=== PATIENT | male | born 1995 | race Caucasian/White ===

== ENCOUNTER 2022-12-10 03:04 | Observation (INO) ==
--- NOTE | 2022-12-10 03:31 | DR.EXTPAIN ---
HPI Time seen Time Seen by Provider: 12/10/22 03:30 PCP Primary Care Physician: ALENA PETERS HPI Comment HPI Comment: A 27 y/o female presenting with c/o upper abdominal pain and SOB. He had lap. cholecystectomy last Wednesday (12/04/22). He went to the ED at [facility] yesterday (1600 Hrs.) for same and states that he had labs. abd. CT scan and was given IVF and analgesics. He is more dyspneic when is lays supine. He describes the abdominal pain as sharp as nails with no radiation. Complaint/Symptoms Chief Complaint:: PT AMBULATORY IN ED WITH C/O HURTING TO BREATHE. PT STATES HE HAD GALLBLADDER REMOVED ON WEDNESDAY. COVID-19 Coronavirus risk:travel/contact w/high risk person: No Has patient experienced Coronavirus symptoms: No Coronavirus symptoms experienced: Shortness of Breath Nurses notes reviewed Nurses Notes Review: Yes Source History Provided: Patient Mode of arrival Mode of Arrival: Ambulatory Timing Onset of Chief Complaint: 12/10/22 Context History of: None Associated signs and symptoms Associated Signs and Symptoms: Shortness of Breath PMH PMH Past Medical History: Yes Past Medical History: Asthma Past Surgical History: Yes Surgical History: Appendectomy and Cholecystectomy Past Surgical History Comment: LEFT FOOT Family History History of Family Medical Conditions: Yes Family Medical History: Diabetes Mellitus, CO, Coronary Artery Disease, Heart Failure, Sudden Cardiac and Hypertension Social History Does patient currently use any type of tobacco product: Yes Have you used tobacco products in the last 12 months: Yes Type of Tobacco Use: Cigarettes Does any household member use tobacco: No Alcohol Use: Occasionally Do you use any recreational Drugs:: No Lives With: Family Lives Where: Home Travel Risk Coronavirus risk:travel/contact w/high risk person: No Has patient experienced Coronavirus symptoms: No Infectious screening In the last 2 months have you had wt loss of >10#?: NO Have you had fever, night sweats or hemotysis?: No Have you traveled outside the country in the last 6 months?: No Isolation: Standard ROS Review of Systems Constitutional: No Symptoms Reported Eyes: No Symptoms Reported ENTM: No Symptoms Reported Respiratoy: Short of Breath Cardiovascular: No Symptoms Reported Gastrointestinal/Abdominal: Abdominal Pain Genitourinary: No Symptoms Reported Neurological: No Symptoms Reported Musculoskeletal: No Symptoms Reported Integumentary: No Symptoms Reported Hematologic/Lymphatic: No Symptoms Reported Endocrine: No Symptoms Reported Psychiatric: No Symptoms Reported All Other Systems: Reviewed and Negative PE Vital Signs Vitals: Temperature 98.2 F Pulse Rate 90 Respiratory Rate 20 Blood Pressure [Left Arm] 116/63 Blood Pressure 124/88 O2 Sat by Pulse Oximetry 98 General Limitations: No Limitations General Appearance: Alert and In No Apparent Distress Head Head Exam: Normal Inspection, Atraumatic and Normocephalic Eyes Eye exam: Normal Appearance and EOMI ENT ENT Exam: Normal Exam, Normal Oropharynx and Normal External Ear Exam Neck Neck Exam: Normal Inspection, Full ROM and Trachea Midline Chest Chest Inspection: Normal Inspection and Symmetric Chest Wall Rise Respiratory Respiratory Exam: Normal Lung Sounds Bilat Cardiovascular Cardiovascular Exam: Regular Rate, Normal Rhythm, Normal Heart Sounds, +S1 and +S2 Abdominal Exam Abdominal Exam: Normal Inspection, Normal Bowel Sounds, Soft and Tenderness Abdominal Tenderness: Epigastrium Extremities Extremities Exam: Normal Inspection and Full ROM Back Back Exam: Normal Inspection and Full ROM Neurological Neurological Exam: Alert, Oriented X3 and CN II-XII Intact Psychiatric Psychiatric Exam: Normal Affect and Normal Mood Skin Skin Exam: Dry, Intact and Normal Color COURSE Treatment Treatment: The visit records of his visit to [facility] yesterday were ontained and reviewed. He has had a CT Scan of the abdome/pelvis which showed no pathology. He had a Chest CTA which was negative for P.E. He had a leukocytosis at 12, otherwise the labs. were okay. On his CBC here early this morning, his WBC had gone up from 12 yesterday to 19.1. I spoke with his surgeon, Dr. Diego. The recommendation is to place the pt. in-house in OBS. status. I informed the pt. ot the plan and the reason for this. Admit orders were written. Reevaluation 1st: Improved Education/Counseling Education/Counseling: Patient, Family, Education and Counseling Educated On: Treatment, Diagnosis and Needs for Follow Up ROR Labs Reviewed Result Diagrams: 12/10/22 03:50 12/10/22 03:50 Laboratory: WBC 19.1 X10^3/uL (3.6-10.0) H 12/10/22 03:50 RBC 5.38 X10^6/uL (4.7-6.0) 12/10/22 03:50 Hgb 16.0 g/dL (13.5-18.0) 12/10/22 03:50 Hct 45.9 % (42.0-54.0) 12/10/22 03:50 MCV 85.3 fL (80.0-100.0) 12/10/22 03:50 MCH 29.8 pg (27.0-34.0) 12/10/22 03:50 MCHC 34.9 g/dL (33.0-35.0) 12/10/22 03:50 RDW 12.8 % (11.6-16.5) 12/10/22 03:50 Plt Count 273 X10^3/uL (150.0-450.0) 12/10/22 03:50 MPV 7.8 fL (7.4-11.0) 12/10/22 03:50 Neut % (Auto) 87.7 % (42.0-75.0) H 12/10/22 03:50 Lymph % (Auto) 4.9 % (21.0-51.0) L 12/10/22 03:50 [place] % (Auto) 7.2 % (0.0-13.0) 12/10/22 03:50 Eos % (Auto) 0.1 % (0.9-2.9) L 12/10/22 03:50 Baso % (Auto) 0.1 % (0.2-1.0) L 12/10/22 03:50 Neut # (Auto) 16.7 x10^3/uL (2.2-4.8) H 12/10/22 03:50 Lymph # (Auto) 0.9 X10^3/uL (1.3-2.9) L 12/10/22 03:50 [place] # (Auto) 1.4 x10^3/uL (0.3-0.8) H 12/10/22 03:50 Eos # (Auto) 0.0 x10^3/uL (0.0-0.2) 12/10/22 03:50 Baso # (Auto) 0.0 X10^3/uL (0.0-0.1) 12/10/22 03:50 Absolute Nucleated RBC 0.0 /100WBC 12/10/22 03:50 D-Dimer 0.48 ug/ml (0.0-0.57) 12/10/22 03:50 Sodium 136 mmol/L (136-145) 12/10/22 03:50 Corrected Sodium 137 mmol/L (136-145) 12/10/22 03:50 Potassium 4.0 mmol/L (3.5-5.1) 12/10/22 03:50 Chloride 99 mmol/L (98-107) 12/10/22 03:50 Carbon Dioxide 28.5 mmol/L (21-32) 12/10/22 03:50 BUN 12 mg/dL (7-18) 12/10/22 03:50 Creatinine 0.90 mg/dL (0.70-1.30) 12/10/22 03:50 Est GFR (MDRD) Af Amer > 60 (>60) 12/10/22 03:50 Est GFR (MDRD) Non-Af > 60 (>60) 12/10/22 03:50 Glucose 145 mg/dL (65-99) H 12/10/22 03:50 Calcium 9.0 mg/dL (8.5-10.1) 12/10/22 03:50 Corrected Calcium TNP 12/10/22 03:50 Total Bilirubin 0.70 mg/dL (0.2-1.0) 12/10/22 03:50 AST 17 Units/L (15-37) 12/10/22 03:50 ALT 33 Units/L (12-78) 12/10/22 03:50 Alkaline Phosphatase 75 Units/L (46-116) 12/10/22 03:50 Total Protein 8.0 g/dL (6.4-8.2) 12/10/22 03:50 Albumin 4.1 g/dL (3.4-5.0) 12/10/22 03:50 Globulin 3.9 g/dL (2.5-4.5) 12/10/22 03:50 Albumin/Globulin Ratio 1.1 Ratio (1.1-2.1) 12/10/22 03:50 Opioid Opioid Risk Tool Age (Georgi box if 16-45): Yes History of Preadolescent Sexual Abuse: No Total: 1 Total Score Risk Category: Low Risk Copyright: Geovanni JOY predicting aberrant behaviors Discharge Plan Diagnosis Discharge Problem: Neutrophilic leukocytosis, Abdominal pain, epigastric, S/P laparoscopic cholecystectomy Discharge Plan Patient Disposition: 09 ADMITTED INPATIENT Condition: Stable Orders to Discharge Patient Discharge Orders: Transfer (Routine); Ordered 12/10/22 Ordered By: NICOLE DENNIS
[2022-12-10] MEDS ORDERED: DEMEROL INJ IVP ONE (03:46)
[2022-12-10] MEDS ORDERED: DEMEROL INJ ONE (03:55)
[2022-12-10 04:01] LABS: BASOPHILS % (AUTO) 0.1 % (0.2-1.0); EOSINOPHILS % (AUTO) 0.1 % (0.9-2.9); HEMATOCRIT 45.9 % (42.0-54.0); LYMPHOCYTES # (AUTO) 0.9 X10^3/uL (1.3-2.9); LYMPHOCYTES % (AUTO) 4.9 % (21.0-51.0); MEAN CORPUSCULAR HEMOGLOBIN 29.8 pg (27.0-34.0); MEAN CORPUSCULAR HGB CONC 34.9 g/dL (33.0-35.0); MEAN CORPUSCULAR VOLUME 85.3 fL (80.0-100.0); MEAN PLATELET VOLUME 7.8 fL (7.4-11.0); MONOCYTES # (AUTO) 1.4 x10^3/uL (0.3-0.8); MONOCYTES % (AUTO) 7.2 % (0.0-13.0); NEUTROPHILS # (AUTO) 16.7 x10^3/uL (2.2-4.8); NEUTROPHILS % (AUTO) 87.7 % (42.0-75.0); RED BLOOD COUNT 5.38 X10^6/uL (4.7-6.0); RED CELL DISTRIBUTION WIDTH 12.8 % (11.6-16.5); WHITE BLOOD COUNT 19.1 X10^3/uL (3.6-10.0)
[2022-12-10 04:15] LABS: ALANINE AMINOTRANSFERASE 33 Units/L (12-78); ALBUMIN 4.1 g/dL (3.4-5.0); ALKALINE PHOSPHATASE 75 Units/L (46-116); ASPARTATE AMINO TRANSFERASE 17 Units/L (15-37); BLOOD UREA NITROGEN 12 mg/dL (7-18); CARBON DIOXIDE 28.5 mmol/L (21-32); CHLORIDE 99 mmol/L (98-107); COR NA(FOR HYPERGLY) 137 mmol/L (136-145); SODIUM 136 mmol/L (136-145); eGFR NON BLACK RACES > 60 (>60)
--- NOTE | 2022-12-10 05:27 | RAD ---
HISTORYPT AMBULATORY IN ED WITH C/O HURTING TO BREATHE. PT STATES HE HAD GALLBLADDER REMOVED ON WEDNESDAY.STUDYCHEST, 1 [id number]/26/2023FINDINGSThe cardiomediastinal silhouette is stable. No acute airspace disease. No pneumothorax or effusion. The bony thorax appears intact.IMPRESSIONNo acute cardiopulmonary disease.Electronically signed by: MAGDI NEGRETE (Dec 10, 2022 05:26:47)
[2022-12-10] MEDS ORDERED: FLAGYL IV PREMIX 500 MG BAG 500 MG/100 ML BAG IV ONE (05:36)
[2022-12-10] MEDS ORDERED: MORPHINE SULFATE INJ 2 MG INJ IVP ONE (05:40)
[2022-12-10] MEDS ORDERED: MORPHINE SULFATE INJ 2 MG INJ ONE (05:41)
[2022-12-10 06:40] VITALS: BMI 34.6
[2022-12-10] MEDS ORDERED: DILAUDID INJ ONE (08:02)
[2022-12-10] MEDS: DILAUDID INJ IVP PRN ×3 (08:09→19:51)
[2022-12-10] MEDS: CIPRO IV 400 MG PREMIX* 400 MG/200 ML IV.SOLN. IV SCH ×2 (08:10→21:22)
[2022-12-10] MEDS ORDERED: FLAGYL IV PREMIX 500 MG BAG 500 MG/100 ML BAG IV SCH (09:00)
[2022-12-10] MEDS ORDERED: MAALOX or MYLANTA PO PRN (09:30)
[2022-12-10] MEDS ORDERED: PROTONIX INJ 40 MG VIAL ONE (09:34)
[2022-12-10] MEDS ORDERED: MYLICON TAB 80 MG CHEW PO ONE (09:34)
[2022-12-10] MEDS: ZOFRAN INJ 4 MG VIAL IVP PRN (09:40)
[2022-12-10] MEDS: MYLICON TAB 80 MG CHEW PO PRN (09:40)
[2022-12-10] MEDS: PROTONIX INJ 40 MG VIAL IVP SCH ×2 (09:41→21:29)
--- OUTSIDE RECORDS SUMMARY | 2022-12-10 14:03 | XMS ---
:1995 Author Organization [facility] er Patient Care Teams Member Role on Team Status Date MAGDI ALLEN JR attending physician Active 023 DU REINA admitting physician Active 12/10/2022 Allergies and Intolerances Code Code System Allergy Type Reaction Severity Start End Date S tatus Substance Date RXNorm Penicillins Drug Unknown Acti ve allergy (disorder) Discharge Diagnosis No data in the system Hospital Discharge Instructions No data in the system Assessment and Plan Assessments No data in the systemPlan Of Treatment No data in the systemPending Tests Test Code Code System Test Start Date URINALYSIS WITH MICRO 12/09/2022 16:39 Medications RxNorm Medication Dose Route Instructions Start Date End Date Stat us 093907 acetaminophen 325 MG / 1 tab oral orally every 6 Active hydrocodone bitartrate hours as needed. 7.5 MG Oral Tablet (NEW RX GIVEN POST-OP) 19830103 sulfamethoxazole 800 1 tab oral orally every 12 Active MG / trimethoprim 160 hours (10 days) MG Oral Tablet (NEW RX GIVEN POST-OP) Medications At Time Of Discharge RxNorm Medication Dose Route Instructions Start Date End Date Stat us 568864 acetaminophen 325 MG / 1 tab oral orally every 6 Active hydrocodone bitartrate hours as needed. 7.5 MG Oral Tablet (NEW RX GIVEN POST-OP) 19830103 sulfamethoxazole 800 1 tab oral orally every 12 Active MG / trimethoprim 160 hours (10 days) MG Oral Tablet (NEW RX GIVEN POST-OP) Problems Code Code System Problem Name Timing Information Health Co ncern Status 7748942 SNOMED-CT Arthritis (Problem) U - Start Date Active Procedures Code Code System Procedure Date Status Notes 77764960 SNOMED CT Appendectomy [address] Surgical reduction of torsion 1998 Comple michael of testis 46966137 SNOMED CT Extraction of wisdom tooth 2016 Completed OSTEOTOMY (Left) 06/03/2021 13:38 Completed Results Laboratory Results Order: AMYLASE & LIPASE Specimen Source: Body Site: [facility] Test Result Flag Range Units Date 1798-8 AMYLASE 41 25-115 U/L 12/09/2022 16:20 3040-3 LIPASE 23 16-77 U/L 12/09/2022 16:20 Order: CBC/AUTOMATED DIFF Specimen Source: Body Site: [facility] Test Result Flag Range Units Date WBC 12.1 H 3.8-10.6 K/uL 12/09/2022 16:20 789-8 RBC 5.27 4.40-5.90 M/uL 12/09/2022 16:20 HGB 15.8 13.0-18.0 g/dL 12/09/2022 16:20 HCT 45.9 40.0-52.0 % 12/09/2022 16:20 MCV 87.1 80.0-100.0 fL 16:20 MCH 30.1 26.0-34.0 pg 12/09/2022 16:20 MCHC 34.6 32.0-36.0 g/dL 12/09/2022 16:20 777-3 PLATELET COUNT 246 150-440 K/uL 12/09 16:20 788-0 RDW 12.8 11.5-15.5 % 12/09/2022 16:20 90186-8 MPV 8.1 6.8-10.0 fL 12/09/2022 16:20 770-8 NEUTROPHILS 67.6 45.0-75.0 % 12/09/19 16:20 LYMPHOCYTES 20.6 20.0-45.0 % 12/09/19 23 16:20 MONOCYTES 7.7 2.0-12.0 % 12/09/2022 16:20 EOSINOPHILS 3.6 0.0-6.0 % 12/09/19 16:20 704-7 BASOPHILS 0.5 0.0-2.0 % 12/09/2022 16:20 751-8 NEUTROPHILS, ABSOLUTE 8.2 H 1.7-6.6 K/uL 12/09/2022 16:20 LYMPHOCYTES, ABSOLUTE 2.5 1.3-3.7 K/uL 12/09/2022 16:20 MONOCYTES, ABSOLUTE 0.9 0.4-0.9 K/uL 12/09/2022 16:20 15837-3 EOSINOPHILS, ABSOLUTE 0.4 0.0-0.4 K/uL 12/09/2022 16:20 BASOPHILS, ABSOLUTE 0.1 0.0-0.2 K/uL 12/09/2022 16:20 RBC MORPHOLOGY see below 12/09 16:20 Note: INDICES INDICATE RBC SCAN NOT REQUIRED Order: CMP-COMPREHENSIVE METABOLIC PANEL 14 Specimen Source: Body Site: [facility] Test Result Flag Range Units Date 2951-2 SODIUM 141 135-145 mmol/L 12/09/2022 16:20 2823-3 POTASSIUM 3.9 3.6-5.2 mmol/L 12/09/2022 16:20 2075-0 CHLORIDE 104 97-108 mmol/L 12/09/2022 16:20 8-9 TOTAL CO2 22 21-32 mmol/L 12/09/2022 16:20 48261-9 ANION GAP 15 6-16 mmol/L 12/09/2022 16:20 2345-7 GLUCOSE 133 H 70-110 mg/dL 12/09/2022 16:20 3094-0 BUN 14 7-18 mg/dL 12/09/2022 16:20 81977-5 OSMO (CALC) 293 273-304 mOsm/kg (CALC) 06/2023 16:20 2160-0 CREATININE 0.9 0.8-1.3 mg/dL 16:20 BUN/CREA RATIO 15.6 6.0-20.0 (CALC) 12/09 16:20 2885-2 TOTAL PROTEIN 7.3 6.4-8.2 g/dL 2022 16:20 96314-9 ALBUMIN 4.2 3.4-5.0 g/dL 12/09/2022 16:20 A/G RATIO 1.4 1.0-2.6 (CALC) 12/09/2022 16:20 1975-2 TOTAL BILIRUBIN 0.3 0.0-1.0 mg/dL 06/2023 16:20 04360-2 CALCIUM 9.7 8.5-10.1 mg/dL 12/09/2022 16:20 6768-6 ALKALINE PHOS 73 50-136 U/L 2022 16:20 39270-7 AST (SGOT) 17 15-37 U/L 16:20 1743-4 ALT (SGPT) 34 30-65 U/L 3 16:20 Order: GLOMERULAR FILTRATION RATE Specimen Source: Body Site: [facility] Test Result Flag Range Units Date 57935-2 GFR, BLACK RACES >60.00 >60 06/2023 16:20 99459-3 GFR, NON-BLACK RACES >60.00 >60 12/09/2022 16:20 Note: "GFR calculated from serum creatinine value" Order: LACTIC ACID Specimen Source: Body Site: [facility] Test Result Flag Range Units Date 4-7 LACTIC ACID 0.6 0.4-2.0 mmol/L 12/09/19 23 20:25 Order: PT/ PTT Specimen Source: Body Site: [facility] Test Result Flag Range Units Date 5902-2 PROTHROMBIN TIME 13.0 H 9.5-12.5 sec 06/2023 16:20 6301-6 INR 1.11 12/09/2022 16:20 Note: Low Intensity Therap y: 1.5 - 2.0 Mod. Intensity Therapy: 2.0 - 3.0 High Intensity Therapy: 3.0 - 4.0 35882-0 PTT 36.8 20.5-43.7 sec 12/09/2022 16:20 Note: Dosage should be adj usted to maintain coagulation test range at 2 times normal. Therapeutic range = 55 - 85 seconds. Radiology Results Order: CTA CHESTExam Completion Date:12/09/2022 17:06 CT angiogram chest with contrast Indication: Chest pain and dyspnea TECHNIQUE Helical images through the chest after IV contrast. Coronal and sagittal reformats provided. MIP images provided. COMPARISON December 09, 2022 CT FINDINGS Limited images through the upper abdomen demonstrate no acute abnormality. Post cholecystectomy change noted with stranding in the right upper quadrant. Sutures are seen from recent access. Review of bone windows demonstrate no destructive osseous lesion. Chest: Chest wall soft tissues are normal. Heart size is normal. Aortic arch and branch vessels are patent. No mediastinal abnormality seen. Pulmonary artery bolus timing is adequate without central or segmental pulmonary artery filling defect although motion artifact limits sensitivity minimally. There is no pneumothorax or effusion. IMPRESSION 1. No pulmonary embolus identified, although motion artifact limits sensitivity as does bolus timing slightly. 2. No through chest process otherwise Electronically signed by: DONTA ALBA (Dec 09, 2022 19:03:45) Read By: DONTA ALBA MD Date: 12/09/2022 19:06Order: CT ABD PELVIS WOExam Completion Date:12/09/2022 16:40HISTORY Pain STUDY CT ABD PELVIS WO COMPARISON TECHNIQUE Multiple axial images of the abdomen and pelvis were obtained from the lung bases to the pubic symphysis without the administration of IV contrast. Dose reduction techniques including Automated Exposure Control (AEC) and adjustment of mA and kV were utilized. FINDINGS The lung bases are clear without effusion. The heart size is normal. Liver isnormal. The gallbladder has been removed. The pancreas, spleen, adrenal glands, and both kidneys arenormal. The stomach and small bowel loops are normal. The appendix is normal. The large bowel is normal. Bladder and prostate are normal. Are no worrisome bone marrow lesions. IMPRESSION No acute abnormality. No complication status post cholecystectomy. Electronically signed by: Melinda Keller (Dec 09, 2022 18:19:48) Read By: MELINDA KELLER MD Date: 12/09/2022 18:22 Social History Code Code System Social History Description Start Date End Date Observation [id number] [facility] Current Smoking Unknown if ever Status smoked UNK AdministrativeGender Sex Assigned At Unknown Family History Relationship: Maternal Grandfather Health Problem Age At Onset Notes Complication of anesthesia Vital Signs Code Code System Vitals Value Date 8865-8 LOINC Pulse Rate 97 {beats}/min 12/09/2022 9279-1 LOINC Respiratory Rate 22 /min 12/09/2022 25241-2 LOINC O2% BldC Oximetry 99 % 12/09/2022 8480-6 LOINC BP Systolic 132 mm[Hg] 12/09/2022 8462-4 LOINC BP Diastolic 74 mm[Hg] 12/09/2022 8310-5 LOINC Body Temperature 97 [degF] 12/09/2022 8302-2 LOINC Height 72 [in_i] 12/09/2022 38326-6 LOINC Weight 117.2 kg 12/09/2022 3140-1 LOINC Body surface area Derived from formula 2. 38 m2 12/09/2022 11880-7 LOINC BMI (Body Mass Index) 35.3 kg/m2 2022 Medical Equipment Implants Implanted Date Implant Site LISA Additional In formation 06/03/2021 AMN[employer] REPAIR 3X3 [id number] LEFT FOOT Lot or Batch Number : [id number], Serial Number : N/A, Implantable Dev ice Status : Active Functional Status No data in the system Mental Status No data in the system Plan of Treatment No data in the system Reason for Visit Reason for Visit Chest Pain*
[2022-12-10] MEDS: FLAGYL IV PREMIX 500 MG BAG 500 MG/100 ML BAG IV SCH ×2 (15:30→21:22)
[2022-12-10] MEDS ORDERED: NS 500 ML IV 500 ML IV ONE (21:02)
[2022-12-10 21:44] LABS: BILIRUBIN,URINE 1+ (NEGATIVE); BLOOD/HEMOGLOBIN,URINE 1+ (NEGATIVE); GLUCOSE, URINE NEGATIVE (NEGATIVE); KETONES,URINE 1+ (NEGATIVE); LEUKOCYTE ESTERASE ,URINE 1+ (NEGATIVE); NITRITES,URINE NEGATIVE (NEGATIVE); PROTEIN,URINE 2+ (NEGATIVE); UROBILINOGEN,URINE 2+ (NORMAL)
[2022-12-10 21:48] LABS: APPEARANCE,URINE CLEAR (CLEAR); COLOR,URINE AMBER (YELLOW)
[2022-12-10 21:49] LABS: BACTERIA,URINE NEGATIVE /HPF (NEGATIVE); HYALINE CASTS, URINE MODERATE /LPF (NEGATIVE); RBC,URINE 0-2 /HPF (0-3); SQUAMOUS EPITHELIAL CELL,UR RARE /HPF (NEGATIVE)
[2022-12-11] MEDS: FLAGYL IV PREMIX 500 MG BAG 500 MG/100 ML BAG IV SCH ×4 (02:16→20:35)
[2022-12-11 05:50] LABS: BASOPHILS # (AUTO) 0.1 X10^3/uL (0.0-0.1); BASOPHILS % (AUTO) 0.4 % (0.2-1.0); EOSINOPHILS # (AUTO) 0.1 x10^3/uL (0.0-0.2); EOSINOPHILS % (AUTO) 0.4 % (0.9-2.9); HEMATOCRIT 44.8 % (42.0-54.0); HEMOGLOBIN 15.3 g/dL (13.5-18.0); LYMPHOCYTES # (AUTO) 0.9 X10^3/uL (1.3-2.9); LYMPHOCYTES % (AUTO) 5.2 % (21.0-51.0); MEAN CORPUSCULAR HEMOGLOBIN 29.9 pg (27.0-34.0); MEAN CORPUSCULAR HGB CONC 34.1 g/dL (33.0-35.0); MEAN CORPUSCULAR VOLUME 87.5 fL (80.0-100.0); MEAN PLATELET VOLUME 7.8 fL (7.4-11.0); MONOCYTES # (AUTO) 1.7 x10^3/uL (0.3-0.8); MONOCYTES % (AUTO) 9.7 % (0.0-13.0); NEUTROPHILS # (AUTO) 14.6 x10^3/uL (2.2-4.8); NEUTROPHILS % (AUTO) 84.3 % (42.0-75.0); RED BLOOD COUNT 5.13 X10^6/uL (4.7-6.0); RED CELL DISTRIBUTION WIDTH 12.8 % (11.6-16.5); WHITE BLOOD COUNT 17.3 X10^3/uL (3.6-10.0)
[2022-12-11 05:58] LABS: BLOOD UREA NITROGEN 11 mg/dL (7-18); CARBON DIOXIDE 33.9 mmol/L (21-32); CHLORIDE 93 mmol/L (98-107); COR NA(FOR HYPERGLY) 133 mmol/L (136-145); CREATININE 0.96 mg/dL (0.70-1.30); SODIUM 132 mmol/L (136-145); eGFR NON BLACK RACES > 60 (>60)
[2022-12-11] MEDS: MYLICON TAB 80 MG CHEW PO PRN (06:10)
[2022-12-11] MEDS ORDERED: POTASSIUM CHL 60 MEQ/NS 0.45% 500 ML IV PRN (06:16)
[2022-12-11] MEDS ORDERED: K-RIDER 10 MEQ/NS 100 ML 10 MEQ/100 ML BAG IV PRN (06:16)
[2022-12-11] MEDS ORDERED: K-DUR TAB 20 MEQ PO PRN (06:16)
[2022-12-11] MEDS ORDERED: POTASSIUM CHLORIDE LIQ 20 MEQ UDC PO PRN (06:16)
[2022-12-11] MEDS ORDERED: KLOR-CON PO PRN (06:16)
[2022-12-11] MEDS ORDERED: MAGNESIUM SULFATE 1 GRAM/100 mL PREMIX 1 G/100 ML BAG IV PRN (06:16)
[2022-12-11] MEDS ORDERED: POTASSIUM CHL 40 MEQ/NS 0.45% 500 ML IV PRN (06:16)
[2022-12-11] MEDS ORDERED: MICRO K EXTEN CAP 10 MEQ PO PRN (06:16)
--- NOTE | 2022-12-11 06:26 | EKG ---
Test Reason : Chest pain Blood Pressure : */* mmHG Vent. Rate : 103 BPM Atrial Rate : 103 BPM P-R Int : 112 ms QRS Dur : 104 ms QT Int : 354 ms P-R-T Axes : 32 39 21 degrees QTc Int : 463 ms Sinus tachycardia Otherwise normal ECG No previous ECGs available Confirmed by Jalen Almonte ([id number]) on 12/11/2022 2:37:20 PM Referred By: Confirmed By: Jalen Almonte
[2022-12-11] MEDS: DILAUDID INJ IVP PRN ×4 (06:35→20:36)
[2022-12-11] MEDS ORDERED: NS 500 ML IV 500 ML IV ONE (07:35)
[2022-12-11] MEDS: MORPHINE SULFATE INJ 2 MG INJ IVP PRN (08:19)
[2022-12-11] MEDS: CIPRO IV 400 MG PREMIX* 400 MG/200 ML IV.SOLN. IV SCH ×2 (08:19→20:35)
[2022-12-11] MEDS: PROTONIX INJ 40 MG VIAL IVP SCH ×2 (08:19→20:35)
[2022-12-11] MEDS: NS 1,000 ML IV 1,000 ML IV SCH ×3 (09:09→20:34)
[2022-12-11] MEDS: ZOFRAN INJ 4 MG VIAL IVP PRN (10:15)
[2022-12-11] MEDS: TOPROL XL PO SCH (10:47)
--- NOTE | 2022-12-11 14:42 | DR.PROGNOT ---
HOSPITAL PROGRESS NOTE Progress Note for Day of: Progress Note Date: 12/11/22 Chief Complaint Chief Complaint: still having moderate to severe epigastric and RT side abdominal pain . no nausea , no vomiting . WBC is still elevated . normal LFT . afebrile . Past Medical Family Social History Allergies: Allergies ampicillin Allergy (Unknown, Verified 12/10/22 03:20) childhood allergy Reason: Drug allergy iodine Allergy (Unknown, Unverified 12/10/22 03:20) RASH Comments: Pt reports allergy to Iodine and shrimp Penicillins Allergy (Verified 12/10/22 03:20) Shrimp (Diagnostic) Allergy (Unknown, Uncoded 12/10/22 03:20) RASH Comments: Says he can eat clams and oysters/shell fish and other fish except shrimp Vital Signs Vital Signs: Temperature 98.9 F Pulse Rate [Left Radial] 120 Pulse Rate 90 Respiratory Rate 18 Blood Pressure [Left Arm] 136/85 Blood Pressure 124/88 O2 Sat by Pulse Oximetry 92 Physical Exam Respiratory: Normal GI:Auscultation: Normal GI: Tenderness: RUQ, Epigastric and Moderate Speech Pattern: Clear and Appropriate Laboratory and Diagnostics Result Diagrams: 12/11/22 05:19 12/11/22 05:19 Labs: Laboratory WBC 17.3 X10^3/uL (3.6-10.0) H 12/11/22 05:19 RBC 5.13 X10^6/uL (4.7-6.0) 12/11/22 05:19 Hgb 15.3 g/dL (13.5-18.0) 12/11/22 05:19 Hct 44.8 % (42.0-54.0) 12/11/22 05:19 MCV 87.5 fL (80.0-100.0) 12/11/22 05:19 MCH 29.9 pg (27.0-34.0) 12/11/22 05:19 MCHC 34.1 g/dL (33.0-35.0) 12/11/22 05:19 RDW 12.8 % (11.6-16.5) 12/11/22 05:19 Plt Count 245 X10^3/uL (150.0-450.0) 12/11/22 05:19 MPV 7.8 fL (7.4-11.0) 12/11/22 05:19 Neut % (Auto) 84.3 % (42.0-75.0) H 12/11/22 05:19 Lymph % (Auto) 5.2 % (21.0-51.0) L 12/11/22 05:19 [place] % (Auto) 9.7 % (0.0-13.0) 12/11/22 05:19 Eos % (Auto) 0.4 % (0.9-2.9) L 12/11/22 05:19 Baso % (Auto) 0.4 % (0.2-1.0) 12/11/22 05:19 Neut # (Auto) 14.6 x10^3/uL (2.2-4.8) H 12/11/22 05:19 Lymph # (Auto) 0.9 X10^3/uL (1.3-2.9) L 12/11/22 05:19 [place] # (Auto) 1.7 x10^3/uL (0.3-0.8) H 12/11/22 05:19 Eos # (Auto) 0.1 x10^3/uL (0.0-0.2) 12/11/22 05:19 Baso # (Auto) 0.1 X10^3/uL (0.0-0.1) 12/11/22 05:19 Absolute Nucleated RBC 0.0 /100WBC 12/11/22 05:19 D-Dimer 0.48 ug/ml (0.0-0.57) 12/10/22 03:50 Sodium 132 mmol/L (136-145) L 12/11/22 05:19 Corrected Sodium 133 mmol/L (136-145) L 12/11/22 05:19 Potassium 3.8 mmol/L (3.5-5.1) 12/11/22 05:19 Chloride 93 mmol/L (98-107) L 12/11/22 05:19 Carbon Dioxide 33.9 mmol/L (21-32) H 12/11/22 05:19 BUN 11 mg/dL (7-18) 12/11/22 05:19 Creatinine 0.96 mg/dL (0.70-1.30) 12/11/22 05:19 Est GFR (MDRD) Af Amer > 60 (>60) 12/11/22 05:19 Est GFR (MDRD) Non-Af > 60 (>60) 12/11/22 05:19 Glucose 136 mg/dL (65-99) H 12/11/22 05:19 Lactic Acid 0.9 mmol/L (0.4-2.0) 12/10/22 05:19 Calcium 9.0 mg/dL (8.5-10.1) 12/11/22 05:19 Corrected Calcium TNP 12/10/22 03:50 Magnesium 2.0 mg/dL (2.0-2.9) 12/11/22 05:19 Total Bilirubin 0.70 mg/dL (0.2-1.0) 12/10/22 03:50 AST 17 Units/L (15-37) 12/10/22 03:50 ALT 33 Units/L (12-78) 12/10/22 03:50 Alkaline Phosphatase 75 Units/L (46-116) 12/10/22 03:50 Creatine Kinase 46 Units/L (39-308) 12/11/22 05:19 Troponin I High Sens 4.2 ng/L (4.0-60.0) 12/11/22 12:08 Total Protein 8.0 g/dL (6.4-8.2) 12/10/22 03:50 Albumin 4.1 g/dL (3.4-5.0) 12/10/22 03:50 Globulin 3.9 g/dL (2.5-4.5) 12/10/22 03:50 Albumin/Globulin Ratio 1.1 Ratio (1.1-2.1) 12/10/22 03:50 Specimen Type Catherized urine 12/10/22 21:15 Urine Color Sophie (YELLOW) 12/10/22 21:15 Urine Appearance Clear (CLEAR) 12/10/22 21:15 Urine pH 5.0 (5.0 - 8.0) 12/10/22 21:15 Ur Specific [place] 1.030 (1.000-1.030) 12/10/22 21:15 Urine Protein 2+ (NEGATIVE) 12/10/22 21:15 Urine Glucose (UA) Negative (NEGATIVE) 12/10/22 21:15 Urine Ketones 1+ (NEGATIVE) 12/10/22 21:15 Urine Blood 1+ (NEGATIVE) 12/10/22 21:15 Urine Nitrite Negative (NEGATIVE) 12/10/22 21:15 Urine Bilirubin 1+ (NEGATIVE) 12/10/22 21:15 Urine Urobilinogen 2+ (NORMAL) 12/10/22 21:15 Ur Leukocyte Esterase 1+ (NEGATIVE) 12/10/22 21:15 Urine RBC 0-2 /HPF (0-3) 12/10/22 21:15 Urine WBC 0-2 /HPF (0-5) 12/10/22 21:15 Ur Squamous Epith Cells Rare /HPF (NEGATIVE) 12/10/22 21:15 Urine Bacteria Negative /HPF (NEGATIVE) 12/10/22 21:15 Hyaline Casts Moderate /LPF (NEGATIVE) 12/10/22 21:15 Urine Mucus Moderate /HPF (NEGATIVE) 12/10/22 21:15 Ur Culture Indicated? No/not indicated 12/10/22 21:15 Urine Opiates Screen Positive (NEG=<300) 12/10/22 21:15 Urine Methadone Screen Negative (NEG=<300) 12/10/22 21:15 Ur Barbiturates Screen Negative (NEG=<200) 12/10/22 21:15 Ur Phencyclidine Scrn Negative (NEG=<25) 12/10/22 21:15 Ur Amphetamines Screen Negative (NEG=<1000) 12/10/22 21:15 U Benzodiazepines Scrn Negative (NEG=<200) 12/10/22 21:15 Urine Cocaine Screen Negative (NEG=<300) 12/10/22 21:15 U Marijuana (THC) Screen Negative (NEG=<50) 12/10/22 21:15 Assessment and Plan 1: abdominal pain , recent lap yon . r/o intraabdominal infection . to have Abdominal/pelvic CT today . same IVF and antibiotics , pain control Problem Patient Problems: Patient Problems (Updated 12/10/22 @ 14:14 by Chelsey Sena) Neutrophilic leukocytosis (Acute) D72.9 Abdominal pain, epigastric (Acute) R10.13 S/P laparoscopic cholecystectomy (Acute) Z90.49
--- NOTE | 2022-12-11 14:45 | CT ---
HISTORYLEUKOCYTOSIS, ABD PAIN S/P CHOLECYSTECTOMY 12-04-22. PT C/O SEVERE RIGHT SIDE PAIN AND CHEST PAIN. PT HAD A/P CT ON 12-09-[address] [facility]. REPORT SCANNED IN.STUDYABDOMEN/PELVIS W/O CONCOMPARISONCT abdomen and pelvis 12/05/2022.TECHNIQUEMultiple axial images of the abdomen and pelvis were obtained from the lung bases to the upper thighs without the administration of IV contrast. Dose reduction techniques including Automated Exposure Control (AEC) and adjustment of mA and kV were utilized.FINDINGSLack of contrast limits evaluation.Right worse than left lower lobe pulmonary opacities may represent atelectasis or infiltrate. The heart is normal in size. Small right pleural effusion. Status post recent cholecystectomy. Mild fat stranding in the postoperative bed. There is mild fluid about the right jose liver that extends into the right pericolic gutter. See image 34 series 4, image 15 series 4 and image 22 series 9. The liver shows borderline hepatic steatosis. Normal caliber common duct. The spleen, pancreas, adrenal glands, and kidneys have a benign noncontrast appearance. Urinary bladder has mild nondependent gas image 93 series 4. There is a moderate amount fluid in the pelvis. Diverticulosis of the colon without evidence of diverticulitis. Status post appendectomy. Negative for bowel obstruction. Non-atherosclerotic normal caliber abdominal aorta. No free air. No pathologic adenopathy. Bone island measuring 6 mm in the left femoral head.IMPRESSIONStatus post recent cholecystectomy. New small amount of fluid about the right jose liver which could represent subcapsular collection. Limited evaluation without contrast. The sterility of this fluid cannot be ascertained with imaging.Right worse than left lower lobe atelectasis versus infiltrate. Small right pleural effusion.Electronically signed by: Darius Hill (Dec 11, 2022 14:43:49)
[2022-12-11] MEDS: XOPENEX 1.25 MG/3 ML NEBULE NEB SCH (21:00)
[2022-12-11] MEDS ORDERED: DUONEB 0.5 MG/3 MG (3 mL) NEB SCH (21:00)
[2022-12-11] MEDS: PULMICORT NEB TX 0.5 MG NEB SCH (21:00)
[2022-12-12] MEDS: DILAUDID INJ IVP PRN ×4 (00:37→21:12)
[2022-12-12] MEDS: NS 1,000 ML IV 1,000 ML IV SCH ×3 (00:38→16:23)
[2022-12-12] MEDS: FLAGYL IV PREMIX 500 MG BAG 500 MG/100 ML BAG IV SCH ×5 (02:50→22:28)
[2022-12-12] MEDS: MORPHINE SULFATE INJ 2 MG INJ IVP PRN ×2 (02:59→07:36)
[2022-12-12 05:41] LABS: BASOPHILS % (AUTO) 0.3 % (0.2-1.0); EOSINOPHILS # (AUTO) 0.2 x10^3/uL (0.0-0.2); EOSINOPHILS % (AUTO) 1.8 % (0.9-2.9); HEMATOCRIT 38.4 % (42.0-54.0); LYMPHOCYTES # (AUTO) 0.9 X10^3/uL (1.3-2.9); LYMPHOCYTES % (AUTO) 6.5 % (21.0-51.0); MEAN CORPUSCULAR HEMOGLOBIN 30.1 pg (27.0-34.0); MEAN CORPUSCULAR HGB CONC 34.2 g/dL (33.0-35.0); MONOCYTES # (AUTO) 1.3 x10^3/uL (0.3-0.8); MONOCYTES % (AUTO) 10.1 % (0.0-13.0); NEUTROPHILS # (AUTO) 10.8 x10^3/uL (2.2-4.8); NEUTROPHILS % (AUTO) 81.3 % (42.0-75.0); RED BLOOD COUNT 4.36 X10^6/uL (4.7-6.0); RED CELL DISTRIBUTION WIDTH 12.5 % (11.6-16.5); WHITE BLOOD COUNT 13.3 X10^3/uL (3.6-10.0)
[2022-12-12] MEDS: XOPENEX 1.25 MG/3 ML NEBULE NEB SCH ×3 (05:48→21:00)
[2022-12-12 05:49] LABS: ALANINE AMINOTRANSFERASE 22 Units/L (12-78); ALBUMIN 3.1 g/dL (3.4-5.0); ALKALINE PHOSPHATASE 76 Units/L (46-116); ASPARTATE AMINO TRANSFERASE 15 Units/L (15-37); BLOOD UREA NITROGEN 11 mg/dL (7-18); CALCIUM 8.7 mg/dL (8.5-10.1); CARBON DIOXIDE 32.9 mmol/L (21-32); CHLORIDE 94 mmol/L (98-107); COR CA(FOR HYPOALB) 9.4 mg/dL (8.5-10.1); COR NA(FOR HYPERGLY) 130 mmol/L (136-145); SODIUM 130 mmol/L (136-145); TOTAL PROTEIN 6.7 g/dL (6.4-8.2); eGFR NON BLACK RACES > 60 (>60)
[2022-12-12 06:06] LABS: HEMOGLOBIN 13.1 g/dL (13.5-18.0)
[2022-12-12] MEDS: TYLENOL 325 MG TAB PO PRN ×2 (07:35→19:40)
--- NOTE | 2022-12-12 07:36 | RAD ---
HISTORYSOBSTUDYAP chestCOMPARISONFebruary 2022FINDINGSThere is significant diaphragm elevation with low volume lungs, accentuating mild atelectasis at the right base. There is marked gaseous distension of the stomach.IMPRESSIONGastric dilatation with diaphragm elevation and mild atelectasis right lower lung. Consider nasogastric decompression.Electronically signed by: OSIEL MCDONALD (Dec 12, 2022 07:34:17)
[2022-12-12] MEDS: PROTONIX INJ 40 MG VIAL IVP SCH ×2 (08:35→21:13)
[2022-12-12] MEDS: TOPROL XL PO SCH (08:35)
[2022-12-12] MEDS: CIPRO IV 400 MG PREMIX* 400 MG/200 ML IV.SOLN. IV SCH ×2 (08:35→21:18)
[2022-12-12] MEDS: PULMICORT NEB TX 0.5 MG NEB SCH ×2 (08:40→21:00)
--- NOTE | 2022-12-12 09:32 | DR.PROGNOT ---
HOSPITAL PROGRESS NOTE Progress Note for Day of: Progress Note Date: 12/12/22 Chief Complaint Chief Complaint: still having moderate epigastric and RT side abdominal pain . no nausea , no vomiting . having difficulty voiding as well . WBC is 13,000 . normal LFT . afebrile . chest X Ray showed mild atelectasis and distended stomach . Past Medical Family Social History Past Med/Fam/Surg Hx: No changes since H&P Allergies: Allergies ampicillin Allergy (Unknown, Verified 12/10/22 03:20) childhood allergy Reason: Drug allergy iodine Allergy (Unknown, Unverified 12/10/22 03:20) RASH Comments: Pt reports allergy to Iodine and shrimp Penicillins Allergy (Verified 12/10/22 03:20) Shrimp (Diagnostic) Allergy (Unknown, Uncoded 12/10/22 03:20) RASH Comments: Says he can eat clams and oysters/shell fish and other fish except shrimp Review Of Systems ROS: No change since H&P Vital Signs Vital Signs: Temperature 99.0 F Pulse Rate [Left Radial] 104 Pulse Rate 118 Respiratory Rate 18 Blood Pressure [Left Arm] 126/71 Blood Pressure 124/88 O2 Sat by Pulse Oximetry 98 Physical Exam Respiratory: Normal GI:Auscultation: Normal GI: Tenderness: Epigastric (moderate tenderness , no rebound . BS hypo active ) and Moderate Speech Pattern: Clear and Appropriate Laboratory and Diagnostics Result Diagrams: 12/12/22 05:02 12/12/22 05:02 Labs: 12/11/22 16:58 Sputum - Expectorated Sputum - Final Laboratory WBC 13.3 X10^3/uL (3.6-10.0) H 12/12/22 05:02 RBC 4.36 X10^6/uL (4.7-6.0) L 12/12/22 05:02 Hgb 13.1 g/dL (13.5-18.0) L D 12/12/22 05:02 Hct 38.4 % (42.0-54.0) L 12/12/22 05:02 MCV 88.0 fL (80.0-100.0) 12/12/22 05:02 MCH 30.1 pg (27.0-34.0) 12/12/22 05:02 MCHC 34.2 g/dL (33.0-35.0) 12/12/22 05:02 RDW 12.5 % (11.6-16.5) 12/12/22 05:02 Plt Count 222 X10^3/uL (150.0-450.0) 12/12/22 05:02 MPV 8.0 fL (7.4-11.0) 12/12/22 05:02 Neut % (Auto) 81.3 % (42.0-75.0) H 12/12/22 05:02 Lymph % (Auto) 6.5 % (21.0-51.0) L 12/12/22 05:02 [place] % (Auto) 10.1 % (0.0-13.0) 12/12/22 05:02 Eos % (Auto) 1.8 % (0.9-2.9) 12/12/22 05:02 Baso % (Auto) 0.3 % (0.2-1.0) 12/12/22 05:02 Neut # (Auto) 10.8 x10^3/uL (2.2-4.8) H 12/12/22 05:02 Lymph # (Auto) 0.9 X10^3/uL (1.3-2.9) L 12/12/22 05:02 [place] # (Auto) 1.3 x10^3/uL (0.3-0.8) H 12/12/22 05:02 Eos # (Auto) 0.2 x10^3/uL (0.0-0.2) 12/12/22 05:02 Baso # (Auto) 0.0 X10^3/uL (0.0-0.1) 12/12/22 05:02 Absolute Nucleated RBC 0.0 /100WBC 12/12/22 05:02 D-Dimer 0.48 ug/ml (0.0-0.57) 12/10/22 03:50 Sodium 130 mmol/L (136-145) L 12/12/22 05:02 Corrected Sodium 130 mmol/L (136-145) L 12/12/22 05:02 Potassium 3.9 mmol/L (3.5-5.1) 12/12/22 05:02 Chloride 94 mmol/L (98-107) L 12/12/22 05:02 Carbon Dioxide 32.9 mmol/L (21-32) H 12/12/22 05:02 BUN 11 mg/dL (7-18) 12/12/22 05:02 Creatinine 0.90 mg/dL (0.70-1.30) 12/12/22 05:02 Est GFR (MDRD) Af Amer > 60 (>60) 12/12/22 05:02 Est GFR (MDRD) Non-Af > 60 (>60) 12/12/22 05:02 Glucose 120 mg/dL (65-99) H 12/12/22 05:02 Lactic Acid 0.9 mmol/L (0.4-2.0) 12/10/22 05:19 Calcium 8.7 mg/dL (8.5-10.1) 12/12/22 05:02 Corrected Calcium 9.4 mg/dL (8.5-10.1) 12/12/22 05:02 Magnesium 2.0 mg/dL (2.0-2.9) 12/11/22 05:19 Total Bilirubin 1.60 mg/dL (0.2-1.0) H 12/12/22 05:02 AST 15 Units/L (15-37) 12/12/22 05:02 ALT 22 Units/L (12-78) 12/12/22 05:02 Alkaline Phosphatase 76 Units/L (46-116) 12/12/22 05:02 Creatine Kinase 46 Units/L (39-308) 12/11/22 05:19 Troponin I High Sens 6.9 ng/L (4.0-60.0) 12/11/22 18:15 Total Protein 6.7 g/dL (6.4-8.2) 12/12/22 05:02 Albumin 3.1 g/dL (3.4-5.0) L 12/12/22 05:02 Globulin 3.6 g/dL (2.5-4.5) 12/12/22 05:02 Albumin/Globulin Ratio 0.9 Ratio (1.1-2.1) L 12/12/22 05:02 Specimen Type Catherized urine 12/10/22 21:15 Urine Color Sophie (YELLOW) 12/10/22 21:15 Urine Appearance Clear (CLEAR) 12/10/22 21:15 Urine pH 5.0 (5.0 - 8.0) 12/10/22 21:15 Ur Specific [place] 1.030 (1.000-1.030) 12/10/22 21:15 Urine Protein 2+ (NEGATIVE) 12/10/22 21:15 Urine Glucose (UA) Negative (NEGATIVE) 12/10/22 21:15 Urine Ketones 1+ (NEGATIVE) 12/10/22 21:15 Urine Blood 1+ (NEGATIVE) 12/10/22 21:15 Urine Nitrite Negative (NEGATIVE) 12/10/22 21:15 Urine Bilirubin 1+ (NEGATIVE) 12/10/22 21:15 Urine Urobilinogen 2+ (NORMAL) 12/10/22 21:15 Ur Leukocyte Esterase 1+ (NEGATIVE) 12/10/22 21:15 Urine RBC 0-2 /HPF (0-3) 12/10/22 21:15 Urine WBC 0-2 /HPF (0-5) 12/10/22 21:15 Ur Squamous Epith Cells Rare /HPF (NEGATIVE) 12/10/22 21:15 Urine Bacteria Negative /HPF (NEGATIVE) 12/10/22 21:15 Hyaline Casts Moderate /LPF (NEGATIVE) 12/10/22 21:15 Urine Mucus Moderate /HPF (NEGATIVE) 12/10/22 21:15 Ur Culture Indicated? No/not indicated 12/10/22 21:15 Urine Opiates Screen Positive (NEG=<300) 12/10/22 21:15 Urine Methadone Screen Negative (NEG=<300) 12/10/22 21:15 Ur Barbiturates Screen Negative (NEG=<200) 12/10/22 21:15 Ur Phencyclidine Scrn Negative (NEG=<25) 12/10/22 21:15 Ur Amphetamines Screen Negative (NEG=<1000) 12/10/22 21:15 U Benzodiazepines Scrn Negative (NEG=<200) 12/10/22 21:15 Urine Cocaine Screen Negative (NEG=<300) 12/10/22 21:15 U Marijuana (THC) Screen Negative (NEG=<50) 12/10/22 21:15 Assessment and Plan 1: abdominal pain , recent lap yon . r/o intraabdominal infection . mild lung Atelectasis . gastric distention and ileus. urine retention . same IVF , Antibiotics . ambulate , incentive spirometer Problem Patient Problems: Patient Problems (Updated 12/10/22 @ 14:14 by Chelsey Sena) Neutrophilic leukocytosis (Acute) D72.9 Abdominal pain, epigastric (Acute) R10.13 S/P laparoscopic cholecystectomy (Acute) Z90.49
[2022-12-12] MEDS: REGLAN INJ 10 MG VIAL IVP SCH ×3 (10:39→21:13)
--- NOTE | 2022-12-12 18:06 | PCM.PROG ---
Progress Note - Progress Note for Day of Date of Exam: 12/11/22 - Subjective Subjective: IS A 27 YEAR OLD WHITE MALE WHO WAS ADMITTED BY OBSERVATION STATUS. WE WERE CONSULTED FOR MEDICAL MANAGEMENT DUE TO ELEVATED HEARTRATE. HE IS 6 DAYS STATUS POST LAPROSCOPIC CHOLECYSTECTOMY. HE PRESENTED TO THE ER LAST NIGHT WITH COMPLAINTS OF PERSISTENT ABDOMINAL PAIN, RIGHT SHOULDER PAIN, NAUSEA, AND VOMITING. PAIN WAS LOCATED IN THE EPIGASTRIC REGION AND IN THE RIGHT UPPER QUADRANT. HE HAD A NON-CONTRAST CT AT ANOTHER FACILITY YESTERDAY. CT WAS NEGATIVE. UPON PRESENTATION TO THIS ER, HIS VITALS WERE: 99.4-145-20-92%-131/83. LABS WERE OBTAINED. WBC 19.1, RBC 5.38, HGB 16.0, HCT 45.9, PLT COUNT 273, SODIUM 136, POTASSIUM 4.0, CHLORIDE 99, BUN 12, CREATININE 0.90, GLUCOSE 145, CALCIUM 9.0, TOTAL BILI 0.70, AST 17, ALT 33, ALK PHOS 75, TOTAL PROTEIN 8.0, ALBUMIN 4.1, D-DIMER 0.48. A URINALYSIS WAS OBTAINED AND WAS UNREMARKABLE. TOXICOLOGY WAS ONLY POSITIVE FOR OPIATES, WHICH HE WAS PRESCRIBED AFTER HIS CHOLECYSTECTOMY. BLOOD AND SPUTUM CULTURES WERE SET UP. A CHEST XRAY WAS OBTAINED AND REVEALED: No acute cardiopulmonary disease. PATIENT REPORTS NOT BEING ABLE TO VOID IN OVER 12 HOURS. A TEMPLE CATHETER WAS PLACED IN THE ER. APPROXIMATELY 600ML COLLECTED UPON INSERTION OF CATHETER. CATHETER WAS LATER REMOVED DUE TO PATIENT REQUEST. IN THE ER, SHE WAS GIVEN DEMEROL 25MG IV X 1, MORPHINE 2MG IV X 1, FLAGYL 500MG IV X 1. HE WAS ADMITTED TO THE HOSPTIAL FOR FURTHER EVALUATION AND TREAMTENT OF LEUKOCYTOSIS, UPPER ABDOMINAL PAIN, S/P LAP MADELAINE. HE WAS STARTED ON NORMAL SALINE AT 125 ML/JR, CIPRO 400MG IV Q12H, FLAGYL 500MG IV Q6H, DILAUDID 2MG IV Q3H PRN, MYLICON 160MG TID PRN, MAALOX 30ML PO Q4H PRN, REGLAN 10MG IV TID, PROTONIX 40MG IV BID, ZOFRAN 4MG IV Q4H PRN, XOPENEX NEBS TID, PULMICORTN NEBS BID, MAALOX 30ML Q4H PRN, TYLENOL 650MG PO Q6H PRN, THE POTASSIUM AND MAGNESIUM PROTOCOLS, AND TOPROL 25MG PO DAILY. WE WILL OBTAIN AN ABDOMEN/PELVIS CT WITH ORAL CONTRAST. OTHERWISE, WE WILL FOLLOW-UP WITH AM LABS AND CONTINUE TO MONITOR. TIME SPENT ON CLINICAL ASSESSMENT, REVIEWING LABS AND IMAGING, DECISION MAKING, AND DOCUMENTATION GREATER THAN 45 MINUTES. - Past Medical Family Social History Past Med/Fam/Surg Hx: No changes since H&P Allergies: Allergies ampicillin Allergy (Unknown, Verified 12/10/22 03:20) childhood allergy Reason: Drug allergy iodine Allergy (Unknown, Unverified 12/10/22 03:20) RASH Comments: Pt reports allergy to Iodine and shrimp Penicillins Allergy (Verified 12/10/22 03:20) Shrimp (Diagnostic) Allergy (Unknown, Uncoded 12/10/22 03:20) RASH Comments: Says he can eat clams and oysters/shell fish and other fish except shrimp - Review of Systems ROS: No change since H&P - Vital Signs and I&O's Vital Signs: Temperature 99.2 F Pulse Rate [Left Radial] 94 Pulse Rate 118 Respiratory Rate 20 Blood Pressure [Left Arm] 116/66 Blood Pressure 124/88 O2 Sat by Pulse Oximetry 95 Intake and Output: Intake & Output 12/10/22 12/11/22 12/12/22 12/13/22 11:59 11:59 11:59 11:59 Intake Total 80 / 80 1200 / 1200 4590 / 4590 Output Total 1050 / 1050 210 / 210 Balance 80 / 80 150 / 150 4380 / 4380 - Physical Exam Oriented: Normal Eyes: Normal Ear: Normal Nose: Normal Throat: Normal Respiratory: Normal Cardiovascular: Normal : Normal Auscultation: Bowel Sounds: Normal Palpation: Normal Tenderness: Epigastric (moderate tenderness , no rebound . BS hypo active), Moderate Skin: Normal Musculoskeletal: Normal Psychiatric: Normal Mood Description: Calm Affect: Normal Speech Pattern: Clear, Appropriate - Laboratory and Diagnostics Result Diagrams: 12/12/22 05:02 12/12/22 05:02 Labs: 12/10/22 05:19 Blood Blood Culture - Preliminary 12/10/22 05:20 Blood Blood Culture - Preliminary 12/11/22 16:58 Sputum - Expectorated Sputum Sputum Culture - Preliminary 12/11/22 16:58 Sputum - Expectorated Sputum - Final Laboratory WBC 13.3 X10^3/uL (3.6-10.0) H 12/12/22 05:02 RBC 4.36 X10^6/uL (4.7-6.0) L 12/12/22 05:02 Hgb 13.1 g/dL (13.5-18.0) L D 12/12/22 05:02 Hct 38.4 % (42.0-54.0) L 12/12/22 05:02 MCV 88.0 fL (80.0-100.0) 12/12/22 05:02 MCH 30.1 pg (27.0-34.0) 12/12/22 05:02 MCHC 34.2 g/dL (33.0-35.0) 12/12/22 05:02 RDW 12.5 % (11.6-16.5) 12/12/22 05:02 Plt Count 222 X10^3/uL (150.0-450.0) 12/12/22 05:02 MPV 8.0 fL (7.4-11.0) 12/12/22 05:02 Neut % (Auto) 81.3 % (42.0-75.0) H 12/12/22 05:02 Lymph % (Auto) 6.5 % (21.0-51.0) L 12/12/22 05:02 [place] % (Auto) 10.1 % (0.0-13.0) 12/12/22 05:02 Eos % (Auto) 1.8 % (0.9-2.9) 12/12/22 05:02 Baso % (Auto) 0.3 % (0.2-1.0) 12/12/22 05:02 Neut # (Auto) 10.8 x10^3/uL (2.2-4.8) H 12/12/22 05:02 Lymph # (Auto) 0.9 X10^3/uL (1.3-2.9) L 12/12/22 05:02 [place] # (Auto) 1.3 x10^3/uL (0.3-0.8) H 12/12/22 05:02 Eos # (Auto) 0.2 x10^3/uL (0.0-0.2) 12/12/22 05:02 Baso # (Auto) 0.0 X10^3/uL (0.0-0.1) 12/12/22 05:02 Absolute Nucleated RBC 0.0 /100WBC 12/12/22 05:02 D-Dimer 0.48 ug/ml (0.0-0.57) 12/10/22 03:50 Sodium 130 mmol/L (136-145) L 12/12/22 05:02 Corrected Sodium 130 mmol/L (136-145) L 12/12/22 05:02 Potassium 3.9 mmol/L (3.5-5.1) 12/12/22 05:02 Chloride 94 mmol/L (98-107) L 12/12/22 05:02 Carbon Dioxide 32.9 mmol/L (21-32) H 12/12/22 05:02 BUN 11 mg/dL (7-18) 12/12/22 05:02 Creatinine 0.90 mg/dL (0.70-1.30) 12/12/22 05:02 Est GFR (MDRD) Af Amer > 60 (>60) 12/12/22 05:02 Est GFR (MDRD) Non-Af > 60 (>60) 12/12/22 05:02 Glucose 120 mg/dL (65-99) H 12/12/22 05:02 Lactic Acid 0.9 mmol/L (0.4-2.0) 12/10/22 05:19 Calcium 8.7 mg/dL (8.5-10.1) 12/12/22 05:02 Corrected Calcium 9.4 mg/dL (8.5-10.1) 12/12/22 05:02 Magnesium 2.0 mg/dL (2.0-2.9) 12/11/22 05:19 Total Bilirubin 1.60 mg/dL (0.2-1.0) H 12/12/22 05:02 AST 15 Units/L (15-37) 12/12/22 05:02 ALT 22 Units/L (12-78) 12/12/22 05:02 Alkaline Phosphatase 76 Units/L (46-116) 12/12/22 05:02 Creatine Kinase 46 Units/L (39-308) 12/11/22 05:19 Troponin I High Sens 6.9 ng/L (4.0-60.0) 12/11/22 18:15 Total Protein 6.7 g/dL (6.4-8.2) 12/12/22 05:02 Albumin 3.1 g/dL (3.4-5.0) L 12/12/22 05:02 Globulin 3.6 g/dL (2.5-4.5) 12/12/22 05:02 Albumin/Globulin Ratio 0.9 Ratio (1.1-2.1) L 12/12/22 05:02 Specimen Type Catherized urine 12/10/22 21:15 Urine Color [place] (YELLOW) 12/10/22 21:15 Urine Appearance Clear (CLEAR) 12/10/22 21:15 Urine pH 5.0 (5.0 - 8.0) 12/10/22 21:15 Ur Specific [place] 1.030 (1.000-1.030) 12/10/22 21:15 Urine Protein 2+ (NEGATIVE) 12/10/22 21:15 Urine Glucose (UA) Negative (NEGATIVE) 12/10/22 21:15 Urine Ketones 1+ (NEGATIVE) 12/10/22 21:15 Urine Blood 1+ (NEGATIVE) 12/10/22 21:15 Urine Nitrite Negative (NEGATIVE) 12/10/22 21:15 Urine Bilirubin 1+ (NEGATIVE) 12/10/22 21:15 Urine Urobilinogen 2+ (NORMAL) 12/10/22 21:15 Ur Leukocyte Esterase 1+ (NEGATIVE) 12/10/22 21:15 Urine RBC 0-2 /HPF (0-3) 12/10/22 21:15 Urine WBC 0-2 /HPF (0-5) 12/10/22 21:15 Ur Squamous Epith Cells Rare /HPF (NEGATIVE) 12/10/22 21:15 Urine Bacteria Negative /HPF (NEGATIVE) 12/10/22 21:15 Hyaline Casts Moderate /LPF (NEGATIVE) 12/10/22 21:15 Urine Mucus Moderate /HPF (NEGATIVE) 12/10/22 21:15 Ur Culture Indicated? No/not indicated 12/10/22 21:15 Urine Opiates Screen Positive (NEG=<300) 12/10/22 21:15 Urine Methadone Screen Negative (NEG=<300) 12/10/22 21:15 Ur Barbiturates Screen Negative (NEG=<200) 12/10/22 21:15 Ur Phencyclidine Scrn Negative (NEG=<25) 12/10/22 21:15 Ur Amphetamines Screen Negative (NEG=<1000) 12/10/22 21:15 U Benzodiazepines Scrn Negative (NEG=<200) 12/10/22 21:15 Urine Cocaine Screen Negative (NEG=<300) 12/10/22 21:15 U Marijuana (THC) Screen Negative (NEG=<50) 12/10/22 21:15 - Plan (1) Abdominal pain, epigastric Status: Acute Plan: OBTAIN ABDOMEN/PELVIS CT WITH ORAL CONTRAST, NORMAL SALINE AT 125 ML/JR, CIPRO 400MG IV Q12H, FLAGYL 500MG IV Q6H, DILAUDID 2MG IV Q3H PRN, MYLICON 160MG TID PRN, MAALOX 30ML PO Q4H PRN, REGLAN 10MG IV TID, PROTONIX 40MG IV BID, ZOFRAN 4MG IV Q4H PRN, XOPENEX NEBS TID, PULMICORTN NEBS BID, MAALOX 30ML Q4H PRN, TYLENOL 650MG PO Q6H PRN, THE POTASSIUM AND MAGNESIUM PROTOCOLS, AND TOPROL 25MG PO DAILY. (2) Nausea and vomiting Status: Acute Qualifiers: Vomiting type: unspecified Qualified Code(s): R11.2 - Nausea with vomiting, unspecified (3) S/P laparoscopic cholecystectomy Status: Acute
--- NOTE | 2022-12-12 18:23 | PCM.PROG ---
Progress Note - Progress Note for Day of Date of Exam: 12/12/22 - Subjective Subjective: IS CURRENTLY OBSERVATION STATUS FOR TREATMENT OF TREATMENT OF LEUKOCYTOSIS, UPPER ABDOMINAL PAIN, TACHYCARDIA, S/P LAP MADELAINE. HE IS 5 DAYS STATUS POST LAPROSCOPIC CHOLECYSTECTOMY. TODAY, HE IS ALERT AND ORIENTED, LYING IN BED ON MORNING ROUNDS. HE CONTINUES WITH COMPLAINTS OF EPIGASTRIC AND RIGHT UPPER QUADRANT PAIN TODAY. HE DENIES SIGNIFICANT IMPROVEMENT SINCE ADMISSION. ADDITIONALLY, HE COMPLAINS OF INTERMITTENT SHORTNESS OF BREATH TODAY. ON EXAMINATION, HEART IS REGULAR IN RATE AND RHYTHM. BILATERAL LUNGS ARE NOTED WITH DIMINISHED LUNG SOUNDS THROUGHOUT. ABDOMEN IS ROUND, SOFT, AND NOTED WITH TENDERNESS TO THE RUQ AND THE EPIGASTRIC REGION. HYPERACTIVE BOWEL SOUNDS ARE NO DEVENDRA IN ALL QUADRANTS. HIS VITALS THIS MORNING WERE: 99.0-100-18-98%-126/71. LABS WERE OBTAINED. WBC 13.3, RBC 4.36, HGB 13.1, HCT 38.4, PLT COUNT 222, SODIUM 130, POTASSIUM 3.9, CHLORIDE 94, CARBON DIOXIDE 32.9, BUN 11, CREATININE 0.90, GLUCOSE 120, CALCIUM 8.7, TOTAL BILI 1.60, AST 15, ALT 22, ALK PHOS 76, TOTAL PROTEIN 6.7, ALBUMIN 3.1. BLOOD AND SPUTUM CULTURES ARE PENDING. AN ABDOMEN/PELVIS CT WITH ORAL CONTRAST WAS OBTAINED AND REVEALED: Status post recent cholecystectomy. New small amount of fluid about the right jose liver which could represent subcapsular collection. Limited evaluation without contrast. The sterility of this fluid cannot be ascertained with imaging. Right worse than left lower lobe atelectasis versus infiltrate. Small right pleural effusion. A CHEST XRAY WAS OBTAINED TODAY AND REVEALED: Gastric dilatation with diaphragm elevation and mild atelectasis right lower lung. Consider nasogastric decompression. HE IS CURRENTLY RECEIVING NORMAL SALINE AT 125 ML/JR, CIPRO 400MG IV Q12H, FLAGYL 500MG IV Q6H, DILAUDID 2MG IV Q3H PRN, MYLICON 160MG TID PRN, MAALOX 30ML PO Q4H PRN, REGLAN 10MG IV TID, PROTONIX 40MG IV BID, ZOFRAN 4MG IV Q4H PRN, XOPENEX NEBS TID, PULMICORTN NEBS BID, MAALOX 30ML Q4H PRN, TYLENOL 650MG PO Q6H PRN, THE POTASSIUM AND MAGNESIUM PROTOCOLS, AND TOPROL 25MG PO DAILY. WE WILL DISCUSS XRAY FINDINGS WITH . OTHERWISE, WE WILL FOLLOW-UP WITH AM LABS AND CONTINUE TO MONITOR. TIME SPENT ON CLINICAL ASSESSMENT, REVIEWING LABS AND IMAGING, DECISION MAKING, AND DOCUMENTATION GREATER THAN 45 MINUTES. - Past Medical Family Social History Past Med/Fam/Surg Hx: No changes since H&P Allergies: Allergies ampicillin Allergy (Unknown, Verified 12/10/22 03:20) childhood allergy Reason: Drug allergy iodine Allergy (Unknown, Unverified 12/10/22 03:20) RASH Comments: Pt reports allergy to Iodine and shrimp Penicillins Allergy (Verified 12/10/22 03:20) Shrimp (Diagnostic) Allergy (Unknown, Uncoded 12/10/22 03:20) RASH Comments: Says he can eat clams and oysters/shell fish and other fish except shrimp - Review of Systems ROS: No change since H&P - Vital Signs and I&O's Vital Signs: Temperature 99.2 F Pulse Rate [Left Radial] 94 Pulse Rate 118 Respiratory Rate 20 Blood Pressure [Left Arm] 116/66 Blood Pressure 124/88 O2 Sat by Pulse Oximetry 95 Intake and Output: Intake & Output 12/10/22 12/11/22 12/12/22 12/13/22 11:59 11:59 11:59 11:59 Intake Total 80 / 80 1200 / 1200 4590 / 4590 Output Total 1050 / 1050 210 / 210 Balance 80 / 80 150 / 150 4380 / 4380 - Physical Exam Oriented: Normal Eyes: Normal Ear: Normal Nose: Normal Throat: Normal Respiratory: Normal Cardiovascular: Normal : Normal Auscultation: Bowel Sounds: Normal Palpation: Normal Tenderness: Epigastric (moderate tenderness , no rebound . BS hypo active), Moderate Skin: Normal Musculoskeletal: Normal Psychiatric: Normal Mood Description: Calm Affect: Normal Speech Pattern: Clear, Appropriate - Laboratory and Diagnostics Result Diagrams: 12/12/22 05:02 12/12/22 05:02 Labs: 12/10/22 05:19 Blood Blood Culture - Preliminary 12/10/22 05:20 Blood Blood Culture - Preliminary 12/11/22 16:58 Sputum - Expectorated Sputum Sputum Culture - Preliminary 12/11/22 16:58 Sputum - Expectorated Sputum - Final Laboratory WBC 13.3 X10^3/uL (3.6-10.0) H 12/12/22 05:02 RBC 4.36 X10^6/uL (4.7-6.0) L 12/12/22 05:02 Hgb 13.1 g/dL (13.5-18.0) L D 12/12/22 05:02 Hct 38.4 % (42.0-54.0) L 12/12/22 05:02 MCV 88.0 fL (80.0-100.0) 12/12/22 05:02 MCH 30.1 pg (27.0-34.0) 12/12/22 05:02 MCHC 34.2 g/dL (33.0-35.0) 12/12/22 05:02 RDW 12.5 % (11.6-16.5) 12/12/22 05:02 Plt Count 222 X10^3/uL (150.0-450.0) 12/12/22 05:02 MPV 8.0 fL (7.4-11.0) 12/12/22 05:02 Neut % (Auto) 81.3 % (42.0-75.0) H 12/12/22 05:02 Lymph % (Auto) 6.5 % (21.0-51.0) L 12/12/22 05:02 [place] % (Auto) 10.1 % (0.0-13.0) 12/12/22 05:02 Eos % (Auto) 1.8 % (0.9-2.9) 12/12/22 05:02 Baso % (Auto) 0.3 % (0.2-1.0) 12/12/22 05:02 Neut # (Auto) 10.8 x10^3/uL (2.2-4.8) H 12/12/22 05:02 Lymph # (Auto) 0.9 X10^3/uL (1.3-2.9) L 12/12/22 05:02 [place] # (Auto) 1.3 x10^3/uL (0.3-0.8) H 12/12/22 05:02 Eos # (Auto) 0.2 x10^3/uL (0.0-0.2) 12/12/22 05:02 Baso # (Auto) 0.0 X10^3/uL (0.0-0.1) 12/12/22 05:02 Absolute Nucleated RBC 0.0 /100WBC 12/12/22 05:02 D-Dimer 0.48 ug/ml (0.0-0.57) 12/10/22 03:50 Sodium 130 mmol/L (136-145) L 12/12/22 05:02 Corrected Sodium 130 mmol/L (136-145) L 12/12/22 05:02 Potassium 3.9 mmol/L (3.5-5.1) 12/12/22 05:02 Chloride 94 mmol/L (98-107) L 12/12/22 05:02 Carbon Dioxide 32.9 mmol/L (21-32) H 12/12/22 05:02 BUN 11 mg/dL (7-18) 12/12/22 05:02 Creatinine 0.90 mg/dL (0.70-1.30) 12/12/22 05:02 Est GFR (MDRD) Af Amer > 60 (>60) 12/12/22 05:02 Est GFR (MDRD) Non-Af > 60 (>60) 12/12/22 05:02 Glucose 120 mg/dL (65-99) H 12/12/22 05:02 Lactic Acid 0.9 mmol/L (0.4-2.0) 12/10/22 05:19 Calcium 8.7 mg/dL (8.5-10.1) 12/12/22 05:02 Corrected Calcium 9.4 mg/dL (8.5-10.1) 12/12/22 05:02 Magnesium 2.0 mg/dL (2.0-2.9) 12/11/22 05:19 Total Bilirubin 1.60 mg/dL (0.2-1.0) H 12/12/22 05:02 AST 15 Units/L (15-37) 12/12/22 05:02 ALT 22 Units/L (12-78) 12/12/22 05:02 Alkaline Phosphatase 76 Units/L (46-116) 12/12/22 05:02 Creatine Kinase 46 Units/L (39-308) 12/11/22 05:19 Troponin I High Sens 6.9 ng/L (4.0-60.0) 12/11/22 18:15 Total Protein 6.7 g/dL (6.4-8.2) 12/12/22 05:02 Albumin 3.1 g/dL (3.4-5.0) L 12/12/22 05:02 Globulin 3.6 g/dL (2.5-4.5) 12/12/22 05:02 Albumin/Globulin Ratio 0.9 Ratio (1.1-2.1) L 12/12/22 05:02 Specimen Type Catherized urine 12/10/22 21:15 Urine Color Sophie (YELLOW) 12/10/22 21:15 Urine Appearance Clear (CLEAR) 12/10/22 21:15 Urine pH 5.0 (5.0 - 8.0) 12/10/22 21:15 Ur Specific [place] 1.030 (1.000-1.030) 12/10/22 21:15 Urine Protein 2+ (NEGATIVE) 12/10/22 21:15 Urine Glucose (UA) Negative (NEGATIVE) 12/10/22 21:15 Urine Ketones 1+ (NEGATIVE) 12/10/22 21:15 Urine Blood 1+ (NEGATIVE) 12/10/22 21:15 Urine Nitrite Negative (NEGATIVE) 12/10/22 21:15 Urine Bilirubin 1+ (NEGATIVE) 12/10/22 21:15 Urine Urobilinogen 2+ (NORMAL) 12/10/22 21:15 Ur Leukocyte Esterase 1+ (NEGATIVE) 12/10/22 21:15 Urine RBC 0-2 /HPF (0-3) 12/10/22 21:15 Urine WBC 0-2 /HPF (0-5) 12/10/22 21:15 Ur Squamous Epith Cells Rare /HPF (NEGATIVE) 12/10/22 21:15 Urine Bacteria Negative /HPF (NEGATIVE) 12/10/22 21:15 Hyaline Casts Moderate /LPF (NEGATIVE) 12/10/22 21:15 Urine Mucus Moderate /HPF (NEGATIVE) 12/10/22 21:15 Ur Culture Indicated? No/not indicated 12/10/22 21:15 Urine Opiates Screen Positive (NEG=<300) 12/10/22 21:15 Urine Methadone Screen Negative (NEG=<300) 12/10/22 21:15 Ur Barbiturates Screen Negative (NEG=<200) 12/10/22 21:15 Ur Phencyclidine Scrn Negative (NEG=<25) 12/10/22 21:15 Ur Amphetamines Screen Negative (NEG=<1000) 12/10/22 21:15 U Benzodiazepines Scrn Negative (NEG=<200) 12/10/22 21:15 Urine Cocaine Screen Negative (NEG=<300) 12/10/22 21:15 U Marijuana (THC) Screen Negative (NEG=<50) 12/10/22 21:15 - Plan (1) Abdominal pain, epigastric Status: Acute Plan: NORMAL SALINE AT 125 ML/JR, CIPRO 400MG IV Q12H, FLAGYL 500MG IV Q6H, DILAUDID 2MG IV Q3H PRN, MYLICON 160MG TID PRN, MAALOX 30ML PO Q4H PRN, REGLAN 10MG IV TID, PROTONIX 40MG IV BID, ZOFRAN 4MG IV Q4H PRN, XOPENEX NEBS TID, PULMICORTN NEBS BID, MAALOX 30ML Q4H PRN, TYLENOL 650MG PO Q6H PRN, THE POTASSIUM AND MAGNESIUM PROTOCOLS, AND TOPROL 25MG PO DAILY. (2) Nausea and vomiting Status: Acute Qualifiers: Vomiting type: unspecified Qualified Code(s): R11.2 - Nausea with vomiting, unspecified (3) S/P laparoscopic cholecystectomy Status: Acute (4) Pneumonia Status: Acute Qualifiers: Pneumonia type: due to unspecified organism Laterality: bilateral Lung location: lower lobe of lung Qualified Code(s): J18.9 - Pneumonia, unspecified organism
[2022-12-13] MEDS: NS 1,000 ML IV 1,000 ML IV SCH ×2 (00:24→08:46)
[2022-12-13] MEDS: DILAUDID INJ IVP PRN (01:59)
[2022-12-13] MEDS: FLAGYL IV PREMIX 500 MG BAG 500 MG/100 ML BAG IV SCH ×2 (02:01→08:46)
[2022-12-13] MEDS: MYLICON TAB 80 MG CHEW PO PRN (02:49)
[2022-12-13 05:34] LABS: BASOPHILS % (AUTO) 0.4 % (0.2-1.0); EOSINOPHILS # (AUTO) 0.3 x10^3/uL (0.0-0.2); EOSINOPHILS % (AUTO) 3.5 % (0.9-2.9); HEMATOCRIT 34.4 % (42.0-54.0); HEMOGLOBIN 11.8 g/dL (13.5-18.0); LYMPHOCYTES # (AUTO) 0.9 X10^3/uL (1.3-2.9); LYMPHOCYTES % (AUTO) 9.8 % (21.0-51.0); MEAN CORPUSCULAR HEMOGLOBIN 29.8 pg (27.0-34.0); MEAN CORPUSCULAR HGB CONC 34.4 g/dL (33.0-35.0); MEAN CORPUSCULAR VOLUME 86.9 fL (80.0-100.0); MEAN PLATELET VOLUME 7.7 fL (7.4-11.0); MONOCYTES % (AUTO) 10.9 % (0.0-13.0); NEUTROPHILS % (AUTO) 75.4 % (42.0-75.0); RED BLOOD COUNT 3.96 X10^6/uL (4.7-6.0); RED CELL DISTRIBUTION WIDTH 12.4 % (11.6-16.5); WHITE BLOOD COUNT 9.3 X10^3/uL (3.6-10.0)
[2022-12-13] MEDS: XOPENEX 1.25 MG/3 ML NEBULE NEB SCH ×2 (05:34→08:15)
[2022-12-13] MEDS: REGLAN INJ 10 MG VIAL IVP SCH (05:38)
[2022-12-13 05:46] LABS: ALANINE AMINOTRANSFERASE 17 Units/L (12-78); ALBUMIN 2.7 g/dL (3.4-5.0); ALKALINE PHOSPHATASE 70 Units/L (46-116); ASPARTATE AMINO TRANSFERASE 16 Units/L (15-37); BLOOD UREA NITROGEN 8 mg/dL (7-18); CALCIUM 8.4 mg/dL (8.5-10.1); CARBON DIOXIDE 30.6 mmol/L (21-32); CHLORIDE 97 mmol/L (98-107); COR CA(FOR HYPOALB) 9.4 mg/dL (8.5-10.1); CREATININE 0.76 mg/dL (0.70-1.30); SODIUM 134 mmol/L (136-145); TOTAL PROTEIN 5.9 g/dL (6.4-8.2); eGFR NON BLACK RACES > 60 (>60)
[2022-12-13] MEDS: MORPHINE SULFATE INJ 2 MG INJ IVP PRN (06:10)
--- NOTE | 2022-12-13 07:47 | RAD ---
HISTORYSOBSTUDYAP chestCOMPARISONFebruary 2022FINDINGSHeart size similar and within normal limits. Interval improvement in previous gastric distention. Persistent mild right basal atelectasis accentuated by elevated diaphragm.IMPRESSIONNo change in appearance of heart or lungs. Improved gastric distention.Electronically signed by: OSIEL MCDONALD (Dec 13, 2022 07:46:18)
[2022-12-13] MEDS: PULMICORT NEB TX 0.5 MG NEB SCH (08:10)
[2022-12-13 08:22] VITALS: BP 129/74
[2022-12-13] MEDS: PROTONIX INJ 40 MG VIAL IVP SCH (08:45)
[2022-12-13] MEDS: TOPROL XL PO SCH (08:45)
[2022-12-13] MEDS: CIPRO IV 400 MG PREMIX* 400 MG/200 ML IV.SOLN. IV SCH (08:46)
== END 2022-12-13 10:16 | disposition home or self-care (01) ==
LOC: ER 03:07 → MED/SURG 03:07
PROVIDERS: ADMIT Surgery; ATTEND Surgery
DX: Z90.49 Acquired absence of other specified parts of digestive tract; R11.2 Nausea with vomiting, unspecified; J90 Pleural effusion, not elsewhere classified; R06.02 Shortness of breath; R00.1 Bradycardia, unspecified; K56.7 Ileus, unspecified; R07.89 Other chest pain; R10.84 Generalized abdominal pain; R10.13 Epigastric pain

== ENCOUNTER 2022-12-18 12:12 | Observation (INO) ==
[2022-12-18] MEDS ORDERED: NS 1,000 ML IV 1,000 ML ONE (12:37)
[2022-12-18] MEDS ORDERED: NS 1,000 ML IV 1,000 ML IV ONE (12:47)
[2022-12-18 13:08] LABS: BASOPHILS # (AUTO) 0.1 X10^3/uL (0.0-0.1); BASOPHILS % (AUTO) 0.7 % (0.2-1.0); EOSINOPHILS # (AUTO) 0.6 x10^3/uL (0.0-0.2); EOSINOPHILS % (AUTO) 4.3 % (0.9-2.9); HEMATOCRIT 42.8 % (42.0-54.0); HEMOGLOBIN 14.9 g/dL (13.5-18.0); LYMPHOCYTES # (AUTO) 1.3 X10^3/uL (1.3-2.9); LYMPHOCYTES % (AUTO) 9.7 % (21.0-51.0); MEAN CORPUSCULAR HEMOGLOBIN 29.7 pg (27.0-34.0); MEAN CORPUSCULAR HGB CONC 34.9 g/dL (33.0-35.0); MEAN CORPUSCULAR VOLUME 85.2 fL (80.0-100.0); MONOCYTES # (AUTO) 1.3 x10^3/uL (0.3-0.8); MONOCYTES % (AUTO) 9.4 % (0.0-13.0); NEUTROPHILS # (AUTO) 10.2 x10^3/uL (2.2-4.8); NEUTROPHILS % (AUTO) 75.9 % (42.0-75.0); RED BLOOD COUNT 5.02 X10^6/uL (4.7-6.0); RED CELL DISTRIBUTION WIDTH 12.3 % (11.6-16.5); WHITE BLOOD COUNT 13.4 X10^3/uL (3.6-10.0)
[2022-12-18 13:22] LABS: ALANINE AMINOTRANSFERASE 37 Units/L (12-78); ALBUMIN 2.9 g/dL (3.4-5.0); ALKALINE PHOSPHATASE 268 Units/L (46-116); AMYLASE 54 Units/L (25-115); ASPARTATE AMINO TRANSFERASE 23 Units/L (15-37); BLOOD UREA NITROGEN 11 mg/dL (7-18); CALCIUM 9.5 mg/dL (8.5-10.1); CARBON DIOXIDE 29.7 mmol/L (21-32); CHLORIDE 96 mmol/L (98-107); COR CA(FOR HYPOALB) 10.4 mg/dL (8.5-10.1); CREATININE 0.74 mg/dL (0.70-1.30); LIPASE 149 Units/L (73-393); SODIUM 139 mmol/L (136-145); TOTAL PROTEIN 7.5 g/dL (6.4-8.2); eGFR NON BLACK RACES > 60 (>60)
[2022-12-18 13:24] LABS: LACTIC ACID 0.7 mmol/L (0.4-2.0)
--- NOTE | 2022-12-18 13:39 | DR.ABDMALE ---
HPI Time seen Time Seen by Provider: 12/18/22 13:38 PCP Primary Care Physician: FRAN Complaint Chief Complaint Doctors Comments: PATIENT HAD GALL BLADDER REMOVED 2 WEEKS AGO AND HAS HAD NAUSEA EVERYSINCE. DR CMGRAW WANTED HIM TO BE EVALUATED INER. Chief Complaint:: PATIENT C/O ABD PAIN. PATIENT STATES HE HAD SURGERY X2 WEEKS A GO. PATIENT HAS SINCE BEEN ADMITTED X 1 WEEK AGO. PATIENT STATES HE IS UNABLE TO EAT ANYTHING. PATIENT STATES HE BEGINS TO HAVE SEVERE ABD PAIN WHEN ANYTHING IS TAKEN IN OTHER THAN WATER. COVID-19 Coronavirus risk:travel/contact w/high risk person: No Has patient experienced Coronavirus symptoms: No Mode of arrival Mode of Arrival: Ambulatory Timing Onset of Chief Complaint: 12/11/22 PMH PMH Past Medical History: Yes Past Medical History: Asthma Past Surgical History: Yes Surgical History: Appendectomy, Cholecystectomy and Ortho Surgery Past Surgical History Comment: FOOT SURGERY, TESTICLE TORTION SURGERY Family History History of Family Medical Conditions: Yes Family Medical History: Diabetes Mellitus, [place], Coronary Artery Disease and Hypertension Social History Does patient currently use any type of tobacco product: Yes Have you used tobacco products in the last 12 months: Yes Type of Tobacco Use: Cigarettes Does any household member use tobacco: No Alcohol Use: None Do you use any recreational Drugs:: No Lives With: Family Lives Where: Home Travel Risk Coronavirus risk:travel/contact w/high risk person: No Has patient experienced Coronavirus symptoms: No Infectious screening In the last 2 months have you had wt loss of >10#?: NO Have you had fever, night sweats or hemotysis?: No Have you traveled outside the country in the last 6 months?: No Isolation: Standard ROS Review of Systems Constitutional: Malaise and Other (CHRONIC NAUSEA) Eyes: No Symptoms Reported ENTM: No Symptoms Reported Respiratoy: No Symptoms Reported Cardiovascular: No Symptoms Reported Gastrointestinal/Abdominal: Nausea Genitourinary: No Symptoms Reported Neurological: No Symptoms Reported Musculoskeletal: No Symptoms Reported Integumentary: No Symptoms Reported Hematologic/Lymphatic: No Symptoms Reported Endocrine: No Symptoms Reported Psychiatric: No Symptoms Reported PE Vital Signs Vital Signs: Temp Pulse Resp BP BP BP Pulse Ox 12/16/22 13:18 129/74 12/18/22 15:00 104 H 98 12/18/22 15:00 112/69 12/18/22 14:45 105 H 98 12/18/22 14:30 106 H 99 12/18/22 14:30 136/58 12/18/22 14:15 110 H 98 12/18/22 14:00 110 H 99 12/18/22 14:00 133/71 12/18/22 13:45 114 H 99 12/18/22 13:30 107 H 98 12/18/22 13:30 121/70 12/18/22 13:15 108 H 98 12/18/22 13:00 114 H 98 12/18/22 13:00 117/59 12/18/22 12:46 125 H 97 12/18/22 12:46 119/66 12/18/22 12:45 125 H 96 12/18/22 12:42 129 H 97 12/18/22 12:12 99.4 F 146 H 20 122/71 97 12/13/22 08:00 129/74 12/12/22 15:45 116/66 O2 Del Method FiO2 12/16/22 13:18 28 12/18/22 15:00 12/18/22 15:00 12/18/22 14:45 12/18/22 14:30 12/18/22 14:30 12/18/22 14:15 12/18/22 14:00 12/18/22 14:00 12/18/22 13:45 12/18/22 13:30 12/18/22 13:30 12/18/22 13:15 12/18/22 13:00 12/18/22 13:00 12/18/22 12:46 12/18/22 12:46 12/18/22 12:45 12/18/22 12:42 12/18/22 12:12 Room Air 12/13/22 08:00 12/12/22 15:45 General Limitations: No Limitations General Appearance: In Distress (MILD DISTRESS) and Other Head Head Exam: Normal Inspection, Atraumatic and Normocephalic Eyes Eye exam: Normal Appearance, PERRL and EOMI ENT ENT Exam: Normal Exam, Normal Oropharynx and Normal External Ear Exam Neck Neck Exam: Normal Inspection, Full ROM and Trachea Midline Chest Chest Inspection: Normal Inspection and Symmetric Chest Wall Rise Respiratory Respiratory Exam: Normal Lung Sounds Bilat Respiratory Exam: Bilateral: Clear to Auscultation Cardiovascular Cardiovascular Exam: Tachycardia Abdominal Exam Abdominal Exam: Normal Inspection, Normal Bowel Sounds and Soft Rectal Rectal Exam: Deferred Back Back Exam: Normal Inspection Extremeties Extremities Exam: Normal Inspection and Full ROM Exam: Male: Deferred Neurologic Neurological Exam: Alert, Oriented X3 and CN II-XII Intact Psychiatric Psychiatric Exam: Normal Affect and Normal Mood Skin Skin Exam: Warm, Dry and Intact MDM Differential Diagnosis Differential Diagnosis: Bowel Obstruction, Gastritus/PUD and Other (comments) (INTRACTABLE NAUSEA) COURSE Treatment Treatment: PATIENT REMAINED STABLE DURING ER VISIT. WAS GIVEN ONE LITER BOLUS OF NACL FOR TACHYCARDIA AND PULSE RATE DECREASED TO 100. HAD A POTASSIUM OF 3.2 AND HE WILL GED NACL WITH 20KCL AT 125CC/HR. CONTACT WAS MADE WITH DR MCGRAW AND HE STATED THAT THE PATIENT WILL NEED TO BE ADMITTED TO THE HOSPITAL FOR HYDRATION AND FURTHER EVALUATION OF THE INTRACTABLE NAUSEA. MIGHT NEED ERCP IN NEAR FUTURE. PATIENT HAD CT OF ABDOMEN AND PELVIS THAT SHOWED MODERATE ASCITES ,DIVERTICULOSIS AND FAT STRANDING IN THE OMENTUM AND MESENTERY IS NON SPECIFIC AND COULD REPRESENT EDEMA,PERITONITIS IS NOT EXCLUDED. ADMIT TO DR MCGRAW AND GET MEDICAL CONSULT WITH DR ADHIKARI. ROR Labs Reviewed Laboratory Results Reviewed?: Yes Result Diagrams: 12/18/22 12:43 12/18/22 12:43 Laboratory: WBC 13.4 X10^3/uL (3.6-10.0) H 12/18/22 12:43 RBC 5.02 X10^6/uL (4.7-6.0) 12/18/22 12:43 Hgb 14.9 g/dL (13.5-18.0) 12/18/22 12:43 Hct 42.8 % (42.0-54.0) 12/18/22 12:43 MCV 85.2 fL (80.0-100.0) 12/18/22 12:43 MCH 29.7 pg (27.0-34.0) 12/18/22 12:43 MCHC 34.9 g/dL (33.0-35.0) 12/18/22 12:43 RDW 12.3 % (11.6-16.5) 12/18/22 12:43 Plt Count 416 X10^3/uL (150.0-450.0) 12/18/22 12:43 MPV 7.0 fL (7.4-11.0) L 12/18/22 12:43 Neut % (Auto) 75.9 % (42.0-75.0) H 12/18/22 12:43 Lymph % (Auto) 9.7 % (21.0-51.0) L 12/18/22 12:43 [place] % (Auto) 9.4 % (0.0-13.0) 12/18/22 12:43 Eos % (Auto) 4.3 % (0.9-2.9) H 12/18/22 12:43 Baso % (Auto) 0.7 % (0.2-1.0) 12/18/22 12:43 Neut # (Auto) 10.2 x10^3/uL (2.2-4.8) H 12/18/22 12:43 Lymph # (Auto) 1.3 X10^3/uL (1.3-2.9) 12/18/22 12:43 [place] # (Auto) 1.3 x10^3/uL (0.3-0.8) H 12/18/22 12:43 Eos # (Auto) 0.6 x10^3/uL (0.0-0.2) H 12/18/22 12:43 Baso # (Auto) 0.1 X10^3/uL (0.0-0.1) 12/18/22 12:43 Absolute Nucleated RBC 0.0 /100WBC 12/18/22 12:43 Sodium 139 mmol/L (136-145) 12/18/22 12:43 Corrected Sodium TNP 12/18/22 12:43 Potassium 3.2 mmol/L (3.5-5.1) L 12/18/22 12:43 Chloride 96 mmol/L (98-107) L 12/18/22 12:43 Carbon Dioxide 29.7 mmol/L (21-32) 12/18/22 12:43 BUN 11 mg/dL (7-18) 12/18/22 12:43 Creatinine 0.74 mg/dL (0.70-1.30) 12/18/22 12:43 Est GFR (MDRD) Af Amer > 60 (>60) 12/18/22 12:43 Est GFR (MDRD) Non-Af > 60 (>60) 12/18/22 12:43 Glucose 97 mg/dL (65-99) 12/18/22 12:43 Lactic Acid 0.7 mmol/L (0.4-2.0) 12/18/22 12:43 Calcium 9.5 mg/dL (8.5-10.1) 12/18/22 12:43 Corrected Calcium 10.4 mg/dL (8.5-10.1) H 12/18/22 12:43 Total Bilirubin 1.80 mg/dL (0.2-1.0) H 12/18/22 12:43 AST 23 Units/L (15-37) 12/18/22 12:43 ALT 37 Units/L (12-78) 12/18/22 12:43 Alkaline Phosphatase 268 Units/L (46-116) H 12/18/22 12:43 Total Protein 7.5 g/dL (6.4-8.2) 12/18/22 12:43 Albumin 2.9 g/dL (3.4-5.0) L 12/18/22 12:43 Globulin 4.6 g/dL (2.5-4.5) H 12/18/22 12:43 Albumin/Globulin Ratio 0.6 Ratio (1.1-2.1) L 12/18/22 12:43 Amylase 54 Units/L (25-115) 12/18/22 12:43 Lipase 149 Units/L (73-393) 12/18/22 12:43 Opioid Opioid Risk Tool Age (Georgi box if 16-45): Yes History of Preadolescent Sexual Abuse: No Total: 1 Total Score Risk Category: Low Risk Copyright: Geovanni JOY predicting aberrant behaviors Discharge Plan Diagnosis Discharge Problem: Ascites, Non-intractable vomiting with nausea, Leucocytosis Discharge Plan Patient Disposition: ADMITTED INPATIENT Condition: Stable Prescriptions: No Action hydrocodone-acetaminophen 5-325 mg tablet 1 tab PO Q8H PRN Health Concerns: Post Hospitalization: new medications and changes needed to prevent readmission or further decline. Pt educated and given instructions on all concerns. Plan of Treatment: Continue with present treatment and follow up plan. Pt is to keep follow up appointment as instructed and take medications as ordered. Orders to Discharge Patient Discharge Orders: Transfer (Routine); Ordered 12/18/22 Ordered By: Christofer Antonio Follow ups/Referrals Follow ups/Referrals: SIDNEY PETERS [Primary Care Provider] - 3 days
--- NOTE | 2022-12-18 14:28 | CT ---
HISTORYPATIENT C/O ABD PAIN. PATIENT STATES HE HAD SURGERY X2 WEEKS AGO. PATIENT HAS SINCE BEEN ADMITTED X 1 WEEK AGO. PATIENT STATES HE IS UNABLE TO EAT ANYTHING.STUDYABDOMEN/PELVIS W/O CONCOMPARISONCT stone protocol 12/11/2022.TECHNIQUEMultiple axial images of the abdomen and pelvis were obtained from the lung bases to the upper thighs without the administration of IV contrast. Dose reduction techniques including Automated Exposure Control (AEC) and adjustment of mA and kV were utilized.FINDINGSLack of contrast limits evaluation.There is mild bibasilar subsegmental atelectasis. The heart is normal in size. There is moderate ascites. There is mild to moderate fat stranding in the greater omentum and small bowel mesentery. Status post cholecystectomy. The liver, spleen, pancreas, adrenal glands, and kidneys have a benign noncontrast appearance. The urinary bladder appears benign. The prostate is normal in size. Diverticulosis of the colon without evidence of diverticulitis. Appendix is not visualized and is limited in evaluation given ascites. Negative for bowel obstruction. Non-atherosclerotic normal caliber abdominal aorta. No free air. No pathologic adenopathy. No discernible abscess. Nine mm bone island left femoral head. No acute osseous abnormality.IMPRESSIONModerate ascites.Status post cholecystectomy and presumed appendectomy.Diverticulosis of the colon without convincing evidence of diverticulitis.Fat stranding in the omentum and mesentery is nonspecific and could represent edema peritonitis is not excluded.Electronically signed by: Darius Hill (Dec 18, 2022 14:27:28)
[2022-12-18] MEDS ORDERED: ZOFRAN INJ 4 MG VIAL IVP PRN (14:59)
[2022-12-18] MEDS: NS + KCL 20 MEQ/L 1,000 ML IV SCH ×2 (15:40→22:36)
[2022-12-18] MEDS ORDERED: NORCO 5/325 MG TAB PO PRN (15:44)
[2022-12-18] MEDS: CIPRO IV 400 MG PREMIX* 400 MG/200 ML IV.SOLN. IV SCH (20:38)
[2022-12-19] MEDS: NS + KCL 20 MEQ/L 1,000 ML IV SCH ×4 (01:56→22:11)
[2022-12-19 06:25] LABS: BASOPHILS # (AUTO) 0.1 X10^3/uL (0.0-0.1); BASOPHILS % (AUTO) 0.9 % (0.2-1.0); EOSINOPHILS # (AUTO) 0.7 x10^3/uL (0.0-0.2); EOSINOPHILS % (AUTO) 7.1 % (0.9-2.9); HEMATOCRIT 36.3 % (42.0-54.0); HEMOGLOBIN 12.7 g/dL (13.5-18.0); LYMPHOCYTES # (AUTO) 1.4 X10^3/uL (1.3-2.9); LYMPHOCYTES % (AUTO) 14.1 % (21.0-51.0); MEAN CORPUSCULAR HEMOGLOBIN 29.9 pg (27.0-34.0); MEAN CORPUSCULAR HGB CONC 35.1 g/dL (33.0-35.0); MEAN CORPUSCULAR VOLUME 85.2 fL (80.0-100.0); MEAN PLATELET VOLUME 7.2 fL (7.4-11.0); MONOCYTES % (AUTO) 10.5 % (0.0-13.0); NEUTROPHILS # (AUTO) 6.7 x10^3/uL (2.2-4.8); NEUTROPHILS % (AUTO) 67.4 % (42.0-75.0); RED BLOOD COUNT 4.26 X10^6/uL (4.7-6.0); RED CELL DISTRIBUTION WIDTH 12.6 % (11.6-16.5); WHITE BLOOD COUNT 9.9 X10^3/uL (3.6-10.0)
[2022-12-19 06:38] LABS: ALANINE AMINOTRANSFERASE 29 Units/L (12-78); ALBUMIN 2.3 g/dL (3.4-5.0); ALKALINE PHOSPHATASE 247 Units/L (46-116); ASPARTATE AMINO TRANSFERASE 21 Units/L (15-37); BLOOD UREA NITROGEN 9 mg/dL (7-18); CALCIUM 8.5 mg/dL (8.5-10.1); CARBON DIOXIDE 24.6 mmol/L (21-32); CHLORIDE 102 mmol/L (98-107); COR CA(FOR HYPOALB) 9.9 mg/dL (8.5-10.1); CREATININE 0.67 mg/dL (0.70-1.30); MAGNESIUM 1.6 mg/dL (2.0-2.9); SODIUM 139 mmol/L (136-145); eGFR NON BLACK RACES > 60 (>60)
--- NOTE | 2022-12-19 08:18 | DR.PROGNOT ---
HOSPITAL PROGRESS NOTE Progress Note for Day of: Progress Note Date: 12/19/22 Chief Complaint Chief Complaint: still having mid abdominal pain after eating with severe cramps for short period . having nausea but no vomiting . having very loose BM for several days ,no bleeding . WBC normal .. Bilirubin 1.4 ..Alk Ph [address] showed mild ascites otherwise normal exam low grade fever Past Medical Family Social History Allergies: Allergies ampicillin Allergy (Unknown, Verified 12/18/22 17:41) childhood allergy Reason: Drug allergy iodine Allergy (Unknown, Verified 12/18/22 17:41) RASH Comments: Pt reports allergy to Iodine and shrimp Penicillins Allergy (Verified 12/18/22 17:41) Shrimp (Diagnostic) Allergy (Unknown, Uncoded 12/18/22 13:49) RASH Comments: Says he can eat clams and oysters/shell fish and other fish except shrimp Vital Signs Vital Signs: Temperature 99.6 F Pulse Rate [Apical] 103 Pulse Rate 102 Respiratory Rate 18 Blood Pressure [Right Arm] 109/56 Blood Pressure [Left Arm] 116/66 Blood Pressure 114/66 O2 Sat by Pulse Oximetry 96 Physical Exam Oriented: Normal Eyes: Normal Ear: Normal Nose: Normal Respiratory: Normal GI: Tenderness: Diffuse (mid abdominal tenderness but soft abdomen ,good BS ) Speech Pattern: Clear and Appropriate Laboratory and Diagnostics Result Diagrams: 12/19/22 05:50 12/19/22 05:50 Labs: Laboratory WBC 9.9 X10^3/uL (3.6-10.0) 12/19/22 05:50 RBC 4.26 X10^6/uL (4.7-6.0) L 12/19/22 05:50 Hgb 12.7 g/dL (13.5-18.0) L D 12/19/22 05:50 Hct 36.3 % (42.0-54.0) L 12/19/22 05:50 MCV 85.2 fL (80.0-100.0) 12/19/22 05:50 MCH 29.9 pg (27.0-34.0) 12/19/22 05:50 MCHC 35.1 g/dL (33.0-35.0) H 12/19/22 05:50 RDW 12.6 % (11.6-16.5) 12/19/22 05:50 Plt Count 368 X10^3/uL (150.0-450.0) 12/19/22 05:50 MPV 7.2 fL (7.4-11.0) L 12/19/22 05:50 Neut % (Auto) 67.4 % (42.0-75.0) 12/19/22 05:50 Lymph % (Auto) 14.1 % (21.0-51.0) L 12/19/22 05:50 [place] % (Auto) 10.5 % (0.0-13.0) 12/19/22 05:50 Eos % (Auto) 7.1 % (0.9-2.9) H 12/19/22 05:50 Baso % (Auto) 0.9 % (0.2-1.0) 12/19/22 05:50 Neut # (Auto) 6.7 x10^3/uL (2.2-4.8) H 12/19/22 05:50 Lymph # (Auto) 1.4 X10^3/uL (1.3-2.9) 12/19/22 05:50 [place] # (Auto) 1.0 x10^3/uL (0.3-0.8) H 12/19/22 05:50 Eos # (Auto) 0.7 x10^3/uL (0.0-0.2) H 12/19/22 05:50 Baso # (Auto) 0.1 X10^3/uL (0.0-0.1) 12/19/22 05:50 Absolute Nucleated RBC 0.0 /100WBC 12/19/22 05:50 Sodium 139 mmol/L (136-145) 12/19/22 05:50 Corrected Sodium TNP 12/19/22 05:50 Potassium 3.5 mmol/L (3.5-5.1) 12/19/22 05:50 Chloride 102 mmol/L (98-107) 12/19/22 05:50 Carbon Dioxide 24.6 mmol/L (21-32) 12/19/22 05:50 BUN 9 mg/dL (7-18) 12/19/22 05:50 Creatinine 0.67 mg/dL (0.70-1.30) L 12/19/22 05:50 Est GFR (MDRD) Af Amer > 60 (>60) 12/19/22 05:50 Est GFR (MDRD) Non-Af > 60 (>60) 12/19/22 05:50 Glucose 84 mg/dL (65-99) 12/19/22 05:50 Lactic Acid 0.7 mmol/L (0.4-2.0) 12/18/22 12:43 Calcium 8.5 mg/dL (8.5-10.1) 12/19/22 05:50 Corrected Calcium 9.9 mg/dL (8.5-10.1) 12/19/22 05:50 Magnesium 1.6 mg/dL (2.0-2.9) L 12/19/22 05:50 Total Bilirubin 1.40 mg/dL (0.2-1.0) H 12/19/22 05:50 AST 21 Units/L (15-37) 12/19/22 05:50 ALT 29 Units/L (12-78) 12/19/22 05:50 Alkaline Phosphatase 247 Units/L (46-116) H 12/19/22 05:50 Total Protein 6.0 g/dL (6.4-8.2) L 12/19/22 05:50 Albumin 2.3 g/dL (3.4-5.0) L 12/19/22 05:50 Globulin 3.7 g/dL (2.5-4.5) 12/19/22 05:50 Albumin/Globulin Ratio 0.6 Ratio (1.1-2.1) L 12/19/22 05:50 Amylase 54 Units/L (25-115) 12/18/22 12:43 Lipase 149 Units/L (73-393) 12/18/22 12:43 Assessment and Plan 1: recurrent abdominal pain with recent lap yon . food intolerance . for EGD next week 2: diarrhea for several days to R/O C Diff to have stool culture . same IVF and control pain 3: hypokalemia .. on supplement K 4: dehydration .. on IVF Problem Patient Problems: Patient Problems (Updated 12/18/22 @ 15:07 by Christofer Antonio) Ascites (Acute) R18.8 Non-intractable vomiting with nausea (Acute) R11.2 Leucocytosis (Acute) D72.829
[2022-12-19] MEDS ORDERED: MORPHINE SULFATE INJ 2 MG INJ IVP PRN (08:24)
[2022-12-19] MEDS: CIPRO IV 400 MG PREMIX* 400 MG/200 ML IV.SOLN. IV SCH ×2 (09:02→21:34)
[2022-12-19] MEDS: NICOTINE PATCH TD SCH (09:02)
[2022-12-19] MEDS: FLAGYL IV PREMIX 500 MG BAG 500 MG/100 ML BAG IV SCH ×4 (14:51→21:33)
[2022-12-19 15:16] VITALS: BMI 34.2
[2022-12-19] MEDS ORDERED: KLOR-CON PO PRN (17:05)
[2022-12-19] MEDS ORDERED: MICRO K EXTEN CAP 10 MEQ PO PRN (17:05)
[2022-12-19] MEDS ORDERED: POTASSIUM CHL 40 MEQ/NS 0.45% 500 ML IV PRN (17:05)
[2022-12-19] MEDS ORDERED: K-RIDER 10 MEQ/NS 100 ML 10 MEQ/100 ML BAG IV PRN (17:05)
[2022-12-19] MEDS ORDERED: POTASSIUM CHLORIDE LIQ 20 MEQ UDC PO PRN (17:05)
[2022-12-19] MEDS ORDERED: POTASSIUM CHL 60 MEQ/NS 0.45% 500 ML IV PRN (17:05)
[2022-12-19] MEDS ORDERED: AMBIEN PO PRN (18:09)
[2022-12-19] MEDS ORDERED: MAGNESIUM SULFATE 1 GRAM/100 mL PREMIX 1 G/100 ML BAG IV ONE (18:26)
[2022-12-19] MEDS ORDERED: K-DUR TAB 20 MEQ PO ONE (18:26)
[2022-12-19] MEDS: MAGNESIUM SULFATE 1 GRAM/100 mL PREMIX 1 G/100 ML BAG IV PRN ×2 (18:32→18:38)
[2022-12-19] MEDS: K-DUR TAB 20 MEQ PO PRN (18:36)
[2022-12-20] MEDS: FLAGYL IV PREMIX 500 MG BAG 500 MG/100 ML BAG IV SCH ×2 (05:22→08:44)
[2022-12-20 06:23] LABS: BASOPHILS # (AUTO) 0.1 X10^3/uL (0.0-0.1); BASOPHILS % (AUTO) 1.2 % (0.2-1.0); EOSINOPHILS # (AUTO) 0.7 x10^3/uL (0.0-0.2); HEMOGLOBIN 11.9 g/dL (13.5-18.0); LYMPHOCYTES # (AUTO) 1.5 X10^3/uL (1.3-2.9); LYMPHOCYTES % (AUTO) 19.3 % (21.0-51.0); MEAN CORPUSCULAR HEMOGLOBIN 29.9 pg (27.0-34.0); MEAN CORPUSCULAR HGB CONC 34.9 g/dL (33.0-35.0); MEAN CORPUSCULAR VOLUME 85.7 fL (80.0-100.0); MEAN PLATELET VOLUME 7.2 fL (7.4-11.0); MONOCYTES # (AUTO) 0.9 x10^3/uL (0.3-0.8); MONOCYTES % (AUTO) 11.1 % (0.0-13.0); NEUTROPHILS # (AUTO) 4.6 x10^3/uL (2.2-4.8); NEUTROPHILS % (AUTO) 59.4 % (42.0-75.0); RED BLOOD COUNT 3.97 X10^6/uL (4.7-6.0); RED CELL DISTRIBUTION WIDTH 12.4 % (11.6-16.5); WHITE BLOOD COUNT 7.8 X10^3/uL (3.6-10.0)
[2022-12-20 06:50] LABS: ALANINE AMINOTRANSFERASE 30 Units/L (12-78); ALBUMIN 2.2 g/dL (3.4-5.0); ALKALINE PHOSPHATASE 296 Units/L (46-116); ASPARTATE AMINO TRANSFERASE 20 Units/L (15-37); BLOOD UREA NITROGEN 7 mg/dL (7-18); CARBON DIOXIDE 27.3 mmol/L (21-32); CHLORIDE 107 mmol/L (98-107); COR CA(FOR HYPOALB) 9.4 mg/dL (8.5-10.1); CREATININE 0.75 mg/dL (0.70-1.30); SODIUM 142 mmol/L (136-145); TOTAL PROTEIN 5.6 g/dL (6.4-8.2); eGFR NON BLACK RACES > 60 (>60)
[2022-12-20] MEDS: NICOTINE PATCH TD SCH (08:43)
[2022-12-20] MEDS: K-DUR TAB 20 MEQ PO PRN (08:43)
[2022-12-20] MEDS: NS + KCL 20 MEQ/L 1,000 ML IV SCH (08:44)
[2022-12-20] MEDS: CIPRO IV 400 MG PREMIX* 400 MG/200 ML IV.SOLN. IV SCH (09:51)
[2022-12-20 10:26] VITALS: BP 112/64
== END 2022-12-20 10:20 | disposition home or self-care (01) ==
LOC: ER 12:12 → MED/SURG 12:12
PROVIDERS: ADMIT Surgery; ATTEND Surgery

== ENCOUNTER 2023-01-04 07:47 | Inpatient (IN) ==
[2023-01-04] MEDS ORDERED: NS 1,000 ML IV 1,000 ML ONE (08:31)
[2023-01-04] MEDS ORDERED: BARHEMSYS INJ ONE (08:35)
--- NOTE | 2023-01-04 09:00 | EKG ---
Test Reason : Labor and delivery room 1 Blood Pressure : */* mmHG Vent. Rate : 107 BPM Atrial Rate : 107 BPM P-R Int : 126 ms QRS Dur : 88 ms QT Int : 348 ms P-R-T Axes : 36 43 39 degrees QTc Int : 464 ms Sinus tachycardia Cannot rule out Anterior infarct , age undetermined Abnormal ECG When compared with ECG of 11-DEC-2022 06:20, Minimal criteria for Anterior infarct are now present Confirmed by Jalen Almonte ([id number]) on 01/04/2023 5:41:58 PM Referred By: Confirmed By: Jalen Almonte
[2023-01-04 09:09] LABS: BASOPHILS # (AUTO) 0.1 X10^3/uL (0.0-0.1); BASOPHILS % (AUTO) 0.6 % (0.2-1.0); EOSINOPHILS # (AUTO) 0.2 x10^3/uL (0.0-0.2); EOSINOPHILS % (AUTO) 2.2 % (0.9-2.9); HEMATOCRIT 39.4 % (42.0-54.0); HEMOGLOBIN 13.6 g/dL (13.5-18.0); LYMPHOCYTES % (AUTO) 11.6 % (21.0-51.0); MEAN CORPUSCULAR HEMOGLOBIN 28.6 pg (27.0-34.0); MEAN CORPUSCULAR HGB CONC 34.4 g/dL (33.0-35.0); MEAN PLATELET VOLUME 7.6 fL (7.4-11.0); MONOCYTES # (AUTO) 0.9 x10^3/uL (0.3-0.8); MONOCYTES % (AUTO) 10.7 % (0.0-13.0); NEUTROPHILS # (AUTO) 6.6 x10^3/uL (2.2-4.8); NEUTROPHILS % (AUTO) 74.9 % (42.0-75.0); RED BLOOD COUNT 4.75 X10^6/uL (4.7-6.0); WHITE BLOOD COUNT 8.8 X10^3/uL (3.6-10.0)
[2023-01-04] MEDS ORDERED: DIPRIVAN VIAL 20 ML ONE (09:21)
[2023-01-04 09:22] LABS: ALANINE AMINOTRANSFERASE 24 Units/L (12-78); ALBUMIN 2.7 g/dL (3.4-5.0); ALKALINE PHOSPHATASE 460 Units/L (46-116); ASPARTATE AMINO TRANSFERASE 17 Units/L (15-37); BLOOD UREA NITROGEN 6 mg/dL (7-18); CALCIUM 8.8 mg/dL (8.5-10.1); CARBON DIOXIDE 29.7 mmol/L (21-32); CHLORIDE 97 mmol/L (98-107); COR CA(FOR HYPOALB) 9.8 mg/dL (8.5-10.1); SODIUM 134 mmol/L (136-145); TOTAL PROTEIN 7.5 g/dL (6.4-8.2); eGFR NON BLACK RACES > 60 (>60)
[2023-01-04] MEDS ORDERED: ZOFRAN INJ 4 MG VIAL IVP PRN (10:00)
[2023-01-04] MEDS: D5 1/2 NS 1,000 ML 1,000 ML IV SCH ×3 (10:15→21:06)
[2023-01-04] MEDS: ZOFRAN INJ 4 MG VIAL IVP PRN (10:18)
[2023-01-04] MEDS: PROTONIX INJ 40 MG VIAL IVP SCH ×2 (11:18→21:04)
[2023-01-04] MEDS ORDERED: PHENERGAN INJ 25 MG IM PRN (11:19)
[2023-01-05] MEDS: D5 1/2 NS 1,000 ML 1,000 ML IV SCH ×4 (03:04→20:18)
[2023-01-05 06:20] LABS: BASOPHILS % (AUTO) 0.6 % (0.2-1.0); EOSINOPHILS # (AUTO) 0.4 x10^3/uL (0.0-0.2); EOSINOPHILS % (AUTO) 5.3 % (0.9-2.9); HEMATOCRIT 33.5 % (42.0-54.0); HEMOGLOBIN 11.6 g/dL (13.5-18.0); LYMPHOCYTES # (AUTO) 1.2 X10^3/uL (1.3-2.9); LYMPHOCYTES % (AUTO) 15.4 % (21.0-51.0); MEAN CORPUSCULAR HEMOGLOBIN 28.8 pg (27.0-34.0); MEAN CORPUSCULAR HGB CONC 34.6 g/dL (33.0-35.0); MEAN CORPUSCULAR VOLUME 83.2 fL (80.0-100.0); MEAN PLATELET VOLUME 8.2 fL (7.4-11.0); MONOCYTES % (AUTO) 12.6 % (0.0-13.0); NEUTROPHILS # (AUTO) 5.1 x10^3/uL (2.2-4.8); NEUTROPHILS % (AUTO) 66.1 % (42.0-75.0); RED BLOOD COUNT 4.03 X10^6/uL (4.7-6.0); RED CELL DISTRIBUTION WIDTH 12.8 % (11.6-16.5); WHITE BLOOD COUNT 7.7 X10^3/uL (3.6-10.0)
[2023-01-05 06:55] LABS: ALANINE AMINOTRANSFERASE 21 Units/L (12-78); ALBUMIN 2.2 g/dL (3.4-5.0); ALKALINE PHOSPHATASE 361 Units/L (46-116); ASPARTATE AMINO TRANSFERASE 16 Units/L (15-37); BLOOD UREA NITROGEN 3 mg/dL (7-18); CALCIUM 8.3 mg/dL (8.5-10.1); CARBON DIOXIDE 28.2 mmol/L (21-32); CHLORIDE 100 mmol/L (98-107); COR CA(FOR HYPOALB) 9.7 mg/dL (8.5-10.1); COR NA(FOR HYPERGLY) 136 mmol/L (136-145); CREATININE 0.74 mg/dL (0.70-1.30); SODIUM 135 mmol/L (136-145); TOTAL PROTEIN 6.3 g/dL (6.4-8.2); eGFR NON BLACK RACES > 60 (>60)
--- NOTE | 2023-01-05 06:56 | EKG ---
Test Reason : HR 110 Blood Pressure : */* mmHG Vent. Rate : 102 BPM Atrial Rate : 102 BPM P-R Int : 122 ms QRS Dur : 102 ms QT Int : 348 ms P-R-T Axes : 31 21 22 degrees QTc Int : 453 ms Sinus tachycardia Minimal voltage criteria for LVH, may be normal variant ( R in aVL ) Borderline ECG When compared with ECG of 04-JAN-2023 08:58, No significant change was found Confirmed by Jalen Almonte ([id number]) on 01/06/2023 8:28:41 AM Referred By: Confirmed By: Jalen Almonte
[2023-01-05] MEDS: LOPRESSOR TAB 50 MG PO SCH (08:59)
[2023-01-05] MEDS: PROTONIX INJ 40 MG VIAL IVP SCH ×2 (08:59→20:20)
[2023-01-05] MEDS ORDERED: K-RIDER 10 MEQ/NS 100 ML 10 MEQ/100 ML BAG IV PRN (09:07)
[2023-01-05] MEDS ORDERED: KLOR-CON PO PRN (09:07)
[2023-01-05] MEDS ORDERED: POTASSIUM CHL 40 MEQ/NS 0.45% 500 ML IV PRN (09:07)
[2023-01-05] MEDS ORDERED: MICRO K EXTEN CAP 10 MEQ PO PRN (09:07)
[2023-01-05] MEDS ORDERED: POTASSIUM CHL 60 MEQ/NS 0.45% 500 ML IV PRN (09:07)
[2023-01-05] MEDS ORDERED: POTASSIUM CHLORIDE LIQ 20 MEQ UDC PO PRN (09:07)
[2023-01-05] MEDS: CYTOTEC PO SCH ×2 (13:28→22:46)
[2023-01-05] MEDS: K-DUR TAB 20 MEQ PO PRN (14:38)
[2023-01-05] MEDS: MAGNESIUM SULFATE 1 GRAM/100 mL PREMIX 1 G/100 ML BAG IV PRN (14:38)
--- NOTE | 2023-01-05 18:07 | DR.PROGNOT ---
HOSPITAL PROGRESS NOTE Progress Note for Day of: Progress Note Date: 01/05/23 Chief Complaint Chief Complaint: c/o having very poor appetite . burning with urination . still having abdominal pain , no vomiting . LFT are still high . MRCP results are not back yet . Past Medical Family Social History Allergies: Allergies ampicillin Allergy (Unknown, Verified 01/04/23 08:42) childhood allergy Reason: Drug allergy iodine Allergy (Unknown, Verified 01/04/23 08:42) RASH Comments: Pt reports allergy to Iodine and shrimp Penicillins Allergy (Unknown, Verified 01/04/23 08:42) shrimp Allergy (Verified 01/04/23 11:39) PT STATES IT MAKES HIS THROAT ITCH. DISCUSSED WITH ELE ORDONEZ,PHARMACIST, AND WAS OK'D PER ELE. Vital Signs Vital Signs: Temperature 98.7 F Pulse Rate [Left Brachial] 93 Pulse Rate 112 Respiratory Rate 20 Blood Pressure [Right Arm] 105/65 Blood Pressure [Left Arm] 116/71 Blood Pressure 127/71 O2 Sat by Pulse Oximetry 95 Physical Exam Oriented: Normal Respiratory: Normal Cardiovascular: Normal GI:Auscultation: Normal (soft , flat non tender abdomen ) Mood Description: Calm and Appropriate Speech Pattern: Clear and Appropriate Laboratory and Diagnostics Result Diagrams: 01/05/23 05:29 01/05/23 05:29 Labs: Laboratory WBC 7.7 X10^3/uL (3.6-10.0) 01/05/23 05:29 RBC 4.03 X10^6/uL (4.7-6.0) L 01/05/23 05:29 Hgb 11.6 g/dL (13.5-18.0) L D 01/05/23 05:29 Hct 33.5 % (42.0-54.0) L 01/05/23 05:29 MCV 83.2 fL (80.0-100.0) 01/05/23 05:29 MCH 28.8 pg (27.0-34.0) 01/05/23 05:29 MCHC 34.6 g/dL (33.0-35.0) 01/05/23 05:29 RDW 12.8 % (11.6-16.5) 01/05/23 05:29 Plt Count 286 X10^3/uL (150.0-450.0) 01/05/23 05:29 MPV 8.2 fL (7.4-11.0) 01/05/23 05:29 Neut % (Auto) 66.1 % (42.0-75.0) 01/05/23 05:29 Lymph % (Auto) 15.4 % (21.0-51.0) L 01/05/23 05:29 [place] % (Auto) 12.6 % (0.0-13.0) 01/05/23 05:29 Eos % (Auto) 5.3 % (0.9-2.9) H 01/05/23 05:29 Baso % (Auto) 0.6 % (0.2-1.0) 01/05/23 05:29 Neut # (Auto) 5.1 x10^3/uL (2.2-4.8) H 01/05/23 05:29 Lymph # (Auto) 1.2 X10^3/uL (1.3-2.9) L 01/05/23 05:29 [place] # (Auto) 1.0 x10^3/uL (0.3-0.8) H 01/05/23 05:29 Eos # (Auto) 0.4 x10^3/uL (0.0-0.2) H 01/05/23 05:29 Baso # (Auto) 0.0 X10^3/uL (0.0-0.1) 01/05/23 05:29 Absolute Nucleated RBC 0.0 /100WBC 01/05/23 05:29 Sodium 135 mmol/L (136-145) L 01/05/23 05:29 Corrected Sodium 136 mmol/L (136-145) 01/05/23 05:29 Potassium 3.3 mmol/L (3.5-5.1) L 01/05/23 05:29 Chloride 100 mmol/L (98-107) 01/05/23 05:29 Carbon Dioxide 28.2 mmol/L (21-32) 01/05/23 05:29 BUN 3 mg/dL (7-18) L 01/05/23 05:29 Creatinine 0.74 mg/dL (0.70-1.30) 01/05/23 05:29 Est GFR (MDRD) Af Amer > 60 (>60) 01/05/23 05:29 Est GFR (MDRD) Non-Af > 60 (>60) 01/05/23 05:29 Glucose 122 mg/dL (65-99) H 01/05/23 05:29 Calcium 8.3 mg/dL (8.5-10.1) L 01/05/23 05:29 Corrected Calcium 9.7 mg/dL (8.5-10.1) 01/05/23 05:29 Magnesium 1.6 mg/dL (2.0-2.9) L 01/05/23 05:29 Total Bilirubin 1.60 mg/dL (0.2-1.0) H 01/05/23 05:29 AST 16 Units/L (15-37) 01/05/23 05:29 ALT 21 Units/L (12-78) 01/05/23 05:29 Alkaline Phosphatase 361 Units/L (46-116) H 01/05/23 05:29 Total Protein 6.3 g/dL (6.4-8.2) L 01/05/23 05:29 Albumin 2.2 g/dL (3.4-5.0) L 01/05/23 05:29 Globulin 4.1 g/dL (2.5-4.5) 01/05/23 05:29 Albumin/Globulin Ratio 0.5 Ratio (1.1-2.1) L 01/05/23 05:29 Assessment and Plan 1: abdominal pain and liver dysfunction . possible CBD stone . awaiting results 2: anxiety and depression added Ativan BID 3: tachycardia . on Toprol 50 daily
--- NOTE | 2023-01-05 19:08 | MRI ---
HISTORYabd painSTUDYMRCPCOMPARISONNoneTEC HNIQUEMultiplanar multi-sequence MRI of the abdomen was obtained without the use of contrast. MRCP protocol was utilizedFINDINGSThe lung bases appear clear. There is a moderate amount of free fluid around the liver status post cholecystectomy which has worsened compared to the previous exam. This is not well evaluated due to extensive motion artifact although given the history certainly the possibility of a bowel duct injury cannot be excluded on this exam. Correlation with a nuclear medicine HIDA scan would be of benefit. The liver, spleen, kidneys, adrenal glands and pancreas are unremarkable in their noncontrast appearance. There is no adenopathy appreciated. The MRCP portion of the exam is somewhat limited due to patient motion however the ducts appear normal in caliber and contour and no definite filling defects can be seen to suggest choledocholithiasis.IMPRESSIONGrossly unremarkable MRCP given the patient motion limitations.Enlarging amount of free fluid in the abdomen compared to the previous CT from last month. Possibility of a bile leak cannot be excluded on this exam and correlation with a nuclear medicine HIDA scan may be of benefit.Electronically signed by: ANTHONY SALDANA (Jan 05, 2023 19:07:28)
[2023-01-05] MEDS: MORPHINE SULFATE INJ 4 MG IVP PRN (20:19)
[2023-01-05 21:23] LABS: BILIRUBIN,URINE 1+ (NEGATIVE); BLOOD/HEMOGLOBIN,URINE NEGATIVE (NEGATIVE); GLUCOSE, URINE NEGATIVE (NEGATIVE); KETONES,URINE 1+ (NEGATIVE); LEUKOCYTE ESTERASE ,URINE NEGATIVE (NEGATIVE); NITRITES,URINE NEGATIVE (NEGATIVE); PROTEIN,URINE 2+ (NEGATIVE); UROBILINOGEN,URINE 1+ (NORMAL)
[2023-01-05 21:31] LABS: COLOR,URINE AMBER (YELLOW)
[2023-01-05 21:32] LABS: APPEARANCE,URINE MUCOID (CLEAR); BACTERIA,URINE TRACE /HPF (NEGATIVE); GRANULAR CASTS,URINE FEW /LPF (NEGATIVE); RBC,URINE 0-2 /HPF (0-3); SQUAMOUS EPITHELIAL CELL,UR RARE /HPF (NEGATIVE)
[2023-01-05] MEDS: ATIVAN TAB 1 MG PO PRN (22:46)
[2023-01-06] MEDS: D5 1/2 NS 1,000 ML 1,000 ML IV SCH ×3 (04:21→20:19)
[2023-01-06] MEDS: CYTOTEC PO SCH ×3 (05:50→22:05)
[2023-01-06 05:57] LABS: ALANINE AMINOTRANSFERASE 23 Units/L (12-78); ALKALINE PHOSPHATASE 334 Units/L (46-116); ASPARTATE AMINO TRANSFERASE 14 Units/L (15-37); BLOOD UREA NITROGEN 4 mg/dL (7-18); CALCIUM 8.2 mg/dL (8.5-10.1); CARBON DIOXIDE 30.2 mmol/L (21-32); CHLORIDE 101 mmol/L (98-107); COR CA(FOR HYPOALB) 9.8 mg/dL (8.5-10.1); COR NA(FOR HYPERGLY) 135 mmol/L (136-145); CREATININE 0.85 mg/dL (0.70-1.30); MAGNESIUM 1.8 mg/dL (2.0-2.9); SODIUM 135 mmol/L (136-145); TOTAL PROTEIN 6.2 g/dL (6.4-8.2); eGFR NON BLACK RACES > 60 (>60)
[2023-01-06 07:18] LABS: BASOPHILS # (AUTO) 0.1 X10^3/uL (0.0-0.1); BASOPHILS % (AUTO) 0.8 % (0.2-1.0); EOSINOPHILS # (AUTO) 0.4 x10^3/uL (0.0-0.2); EOSINOPHILS % (AUTO) 6.1 % (0.9-2.9); HEMATOCRIT 34.3 % (42.0-54.0); HEMOGLOBIN 11.6 g/dL (13.5-18.0); LYMPHOCYTES # (AUTO) 1.3 X10^3/uL (1.3-2.9); LYMPHOCYTES % (AUTO) 19.2 % (21.0-51.0); MEAN CORPUSCULAR HEMOGLOBIN 28.4 pg (27.0-34.0); MEAN CORPUSCULAR HGB CONC 33.8 g/dL (33.0-35.0); MEAN PLATELET VOLUME 8.3 fL (7.4-11.0); MONOCYTES # (AUTO) 0.8 x10^3/uL (0.3-0.8); MONOCYTES % (AUTO) 11.4 % (0.0-13.0); NEUTROPHILS # (AUTO) 4.4 x10^3/uL (2.2-4.8); NEUTROPHILS % (AUTO) 62.5 % (42.0-75.0); RED BLOOD COUNT 4.09 X10^6/uL (4.7-6.0); RED CELL DISTRIBUTION WIDTH 12.7 % (11.6-16.5)
[2023-01-06] MEDS: MAGNESIUM SULFATE 1 GRAM/100 mL PREMIX 1 G/100 ML BAG IV PRN ×2 (08:27→10:10)
[2023-01-06] MEDS: K-DUR TAB 20 MEQ PO PRN (08:28)
[2023-01-06] MEDS: LOPRESSOR TAB 50 MG PO SCH (08:28)
[2023-01-06] MEDS: PROTONIX INJ 40 MG VIAL IVP SCH ×2 (08:28→20:20)
[2023-01-06] MEDS ORDERED: PHARMACY CONSULT - TPN XX SCH (10:00)
[2023-01-06] MEDS ORDERED: LOPRESSOR TAB 50 MG PO SCH (10:00)
--- NOTE | 2023-01-06 10:26 | DR.PROGNOT ---
HOSPITAL PROGRESS NOTE Progress Note for Day of: Progress Note Date: 01/06/23 Chief Complaint Chief Complaint: c/o having very poor appetite . moderate abdominal pain Lt side and mid abdomen . mild elevated Alk Phos and Bilirubin . MRCP showed moderate fluid around the liver , normal CBD . had fever last night 100.4 Past Medical Family Social History Allergies: Allergies ampicillin Allergy (Unknown, Verified 01/04/23 08:42) childhood allergy Reason: Drug allergy iodine Allergy (Unknown, Verified 01/04/23 08:42) RASH Comments: Pt reports allergy to Iodine and shrimp Penicillins Allergy (Unknown, Verified 01/04/23 08:42) shrimp Allergy (Verified 01/04/23 11:39) PT STATES IT MAKES HIS THROAT ITCH. DISCUSSED WITH ELE ORDONEZ,PHARMACIST, AND WAS OK'D PER ELE. Vital Signs Vital Signs: Temperature 97.6 F Pulse Rate [Left Brachial] 94 Pulse Rate 112 Respiratory Rate 20 Blood Pressure [Right Arm] 113/63 Blood Pressure [Left Arm] 116/71 Blood Pressure 127/71 O2 Sat by Pulse Oximetry 96 Physical Exam Oriented: Normal Respiratory: Normal Cardiovascular: Normal GI:Auscultation: Other (soft, flat abdomen with mild diffuse tenderness ) Mood Description: Calm and Appropriate Speech Pattern: Clear and Appropriate Laboratory and Diagnostics Result Diagrams: 01/06/23 05:28 01/06/23 05:28 Labs: Laboratory WBC 7.0 X10^3/uL (3.6-10.0) 01/06/23 05:28 RBC 4.09 X10^6/uL (4.7-6.0) L 01/06/23 05:28 Hgb 11.6 g/dL (13.5-18.0) L 01/06/23 05:28 Hct 34.3 % (42.0-54.0) L 01/06/23 05:28 MCV 84.0 fL (80.0-100.0) 01/06/23 05:28 MCH 28.4 pg (27.0-34.0) 01/06/23 05:28 MCHC 33.8 g/dL (33.0-35.0) 01/06/23 05:28 RDW 12.7 % (11.6-16.5) 01/06/23 05:28 Plt Count 291 X10^3/uL (150.0-450.0) 01/06/23 05:28 MPV 8.3 fL (7.4-11.0) 01/06/23 05:28 Neut % (Auto) 62.5 % (42.0-75.0) 01/06/23 05:28 Lymph % (Auto) 19.2 % (21.0-51.0) L 01/06/23 05:28 [place] % (Auto) 11.4 % (0.0-13.0) 01/06/23 05:28 Eos % (Auto) 6.1 % (0.9-2.9) H 01/06/23 05:28 Baso % (Auto) 0.8 % (0.2-1.0) 01/06/23 05:28 Neut # (Auto) 4.4 x10^3/uL (2.2-4.8) 01/06/23 05:28 Lymph # (Auto) 1.3 X10^3/uL (1.3-2.9) 01/06/23 05:28 [place] # (Auto) 0.8 x10^3/uL (0.3-0.8) 01/06/23 05:28 Eos # (Auto) 0.4 x10^3/uL (0.0-0.2) H 01/06/23 05:28 Baso # (Auto) 0.1 X10^3/uL (0.0-0.1) 01/06/23 05:28 Absolute Nucleated RBC 0.0 /100WBC 01/06/23 05:28 Sodium 135 mmol/L (136-145) L 01/06/23 05:28 Corrected Sodium 135 mmol/L (136-145) L 01/06/23 05:28 Potassium 3.5 mmol/L (3.5-5.1) 01/06/23 05:28 Chloride 101 mmol/L (98-107) 01/06/23 05:28 Carbon Dioxide 30.2 mmol/L (21-32) 01/06/23 05:28 BUN 4 mg/dL (7-18) L 01/06/23 05:28 Creatinine 0.85 mg/dL (0.70-1.30) 01/06/23 05:28 Est GFR (MDRD) Af Amer > 60 (>60) 01/06/23 05:28 Est GFR (MDRD) Non-Af > 60 (>60) 01/06/23 05:28 Glucose 115 mg/dL (65-99) H 01/06/23 05:28 Calcium 8.2 mg/dL (8.5-10.1) L 01/06/23 05:28 Corrected Calcium 9.8 mg/dL (8.5-10.1) 01/06/23 05:28 Magnesium 1.8 mg/dL (2.0-2.9) L 01/06/23 05:28 Total Bilirubin 1.50 mg/dL (0.2-1.0) H 01/06/23 05:28 AST 14 Units/L (15-37) L 01/06/23 05:28 ALT 23 Units/L (12-78) 01/06/23 05:28 Alkaline Phosphatase 334 Units/L (46-116) H 01/06/23 05:28 Total Protein 6.2 g/dL (6.4-8.2) L 01/06/23 05:28 Albumin 2.0 g/dL (3.4-5.0) L 01/06/23 05:28 Globulin 4.2 g/dL (2.5-4.5) 01/06/23 05:28 Albumin/Globulin Ratio 0.5 Ratio (1.1-2.1) L 01/06/23 05:28 Prealbumin 8.2 mg/dL (18-35.7) L 01/06/23 05:28 Specimen Type Clean catch urine 01/05/23 21:08 Urine Color [place] (YELLOW) 01/05/23 21:08 Urine Appearance Mucoid (CLEAR) 01/05/23 21:08 Urine pH 6.0 (5.0 - 8.0) 01/05/23 21:08 Ur Specific [place] 1.025 (1.000-1.030) 01/05/23 21:08 Urine Protein 2+ (NEGATIVE) 01/05/23 21:08 Urine Glucose (UA) Negative (NEGATIVE) 01/05/23 21:08 Urine Ketones 1+ (NEGATIVE) 01/05/23 21:08 Urine Blood Negative (NEGATIVE) 01/05/23 21:08 Urine Nitrite Negative (NEGATIVE) 01/05/23 21:08 Urine Bilirubin 1+ (NEGATIVE) 01/05/23 21:08 Urine Urobilinogen 1+ (NORMAL) 01/05/23 21:08 Ur Leukocyte Esterase Negative (NEGATIVE) 01/05/23 21:08 Urine RBC 0-2 /HPF (0-3) 01/05/23 21:08 Urine WBC None seen /HPF (0-5) 01/05/23 21:08 Ur Squamous Epith Cells Rare /HPF (NEGATIVE) 01/05/23 21:08 Urine Bacteria Trace /HPF (NEGATIVE) 01/05/23 21:08 Granular Casts Few /LPF (NEGATIVE) 01/05/23 21:08 Urine Mucus Numerous /HPF (NEGATIVE) 01/05/23 21:08 Ur Culture Indicated? No/not indicated 01/05/23 21:08 Assessment and Plan 1: abdominal pain and liver dysfunction . ascites , possible bile leak . for HIDA Scan in am . on IV antibiotics . 2: poor oral intake . to start on peripheral TPN . 3: tachycardia . on Toprol 50 daily
[2023-01-06] MEDS ORDERED: DRUG FILTER EXTENSION SET ONE (10:41)
[2023-01-06] MEDS: [UNRECOGNIZED DRUG - OTHER] IV SCH ×3 (11:19)
[2023-01-06] MEDS: TPN ELECTROLYTES IV SCH ×3 (11:19)
[2023-01-06] MEDS: CLINIMIX IV SCH ×3 (11:19)
[2023-01-06] MEDS: LEVAQUIN PREMIX IV 750 MG 750 MG/150 ML BAG IV SCH (16:27)
[2023-01-06] MEDS: TYLENOL 500 MG TAB EXTRA STRENGTH PO PRN (18:34)
[2023-01-06] MEDS: ZOFRAN INJ 4 MG VIAL IVP PRN (18:36)
[2023-01-06] MEDS: ATIVAN TAB 1 MG PO PRN (18:36)
[2023-01-07] MEDS: D5 1/2 NS 1,000 ML 1,000 ML IV SCH ×3 (02:40→21:20)
[2023-01-07] MEDS: CYTOTEC PO SCH ×3 (05:17→21:19)
[2023-01-07 05:33] LABS: BASOPHILS # (AUTO) 0.1 X10^3/uL (0.0-0.1); BASOPHILS % (AUTO) 1.2 % (0.2-1.0); EOSINOPHILS # (AUTO) 0.4 x10^3/uL (0.0-0.2); EOSINOPHILS % (AUTO) 5.7 % (0.9-2.9); HEMATOCRIT 33.1 % (42.0-54.0); HEMOGLOBIN 11.3 g/dL (13.5-18.0); LYMPHOCYTES # (AUTO) 1.2 X10^3/uL (1.3-2.9); LYMPHOCYTES % (AUTO) 16.5 % (21.0-51.0); MEAN CORPUSCULAR HEMOGLOBIN 28.5 pg (27.0-34.0); MEAN CORPUSCULAR HGB CONC 34.2 g/dL (33.0-35.0); MEAN CORPUSCULAR VOLUME 83.5 fL (80.0-100.0); MEAN PLATELET VOLUME 7.7 fL (7.4-11.0); MONOCYTES # (AUTO) 0.8 x10^3/uL (0.3-0.8); MONOCYTES % (AUTO) 10.8 % (0.0-13.0); NEUTROPHILS # (AUTO) 4.7 x10^3/uL (2.2-4.8); NEUTROPHILS % (AUTO) 65.8 % (42.0-75.0); RED BLOOD COUNT 3.96 X10^6/uL (4.7-6.0); WHITE BLOOD COUNT 7.1 X10^3/uL (3.6-10.0)
[2023-01-07 05:50] LABS: PREALBUMIN 8.4 mg/dL (18-35.7)
[2023-01-07 07:24] LABS: ALANINE AMINOTRANSFERASE 28 Units/L (12-78); ALBUMIN 1.9 g/dL (3.4-5.0); ALKALINE PHOSPHATASE 313 Units/L (46-116); ASPARTATE AMINO TRANSFERASE 21 Units/L (15-37); BLOOD UREA NITROGEN 7 mg/dL (7-18); CARBON DIOXIDE 27.9 mmol/L (21-32); CHLORIDE 101 mmol/L (98-107); COR CA(FOR HYPOALB) 9.7 mg/dL (8.5-10.1); COR NA(FOR HYPERGLY) 135 mmol/L (136-145); CREATININE 0.85 mg/dL (0.70-1.30); SODIUM 135 mmol/L (136-145); TOTAL PROTEIN 6.2 g/dL (6.4-8.2); eGFR NON BLACK RACES > 60 (>60)
[2023-01-07] MEDS: LEVAQUIN PREMIX IV 750 MG 750 MG/150 ML BAG IV SCH (09:45)
[2023-01-07] MEDS: PROTONIX INJ 40 MG VIAL IVP SCH ×2 (09:45→21:25)
[2023-01-07] MEDS ORDERED: TORADOL 30 MG VIAL IVP ONE (11:00)
[2023-01-07] MEDS: ZOFRAN INJ 4 MG VIAL IVP PRN (11:03)
[2023-01-07 12:04] VITALS: BMI 35.1
[2023-01-07] MEDS: CLINIMIX IV SCH ×9 (12:07→22:00)
[2023-01-07] MEDS: TPN ELECTROLYTES IV SCH ×9 (12:07→22:00)
[2023-01-07] MEDS: [UNRECOGNIZED DRUG - OTHER] IV SCH ×9 (12:07→22:00)
[2023-01-07] MEDS ORDERED: STERILE WATER IRRIGATION IR ONE (12:36)
[2023-01-07] MEDS ORDERED: LR 1,000 ML IV 1,000 ML IV ONE (13:01)
[2023-01-07] MEDS ORDERED: FENTANYL VIAL INJ 250 mcg ONE (13:02)
[2023-01-07] MEDS ORDERED: VERSED ONE (13:02)
[2023-01-07] MEDS ORDERED: ZEMURON 100 MG VIAL ONE (13:04)
[2023-01-07] MEDS ORDERED: QUELICIN (OR ANECTINE) ONE (13:04)
[2023-01-07] MEDS ORDERED: DIPRIVAN VIAL 20 ML ONE (13:04)
[2023-01-07] MEDS ORDERED: REGLAN INJ 10 MG VIAL ONE (13:05)
[2023-01-07] MEDS ORDERED: ZOFRAN INJ 4 MG VIAL ONE (13:05)
[2023-01-07] MEDS ORDERED: ANCEF VIAL 1 GRAM ONE (13:16)
[2023-01-07] MEDS ORDERED: NS 100 ML IV 100 ML ONE (13:16)
--- NOTE | 2023-01-07 13:17 | NM ---
HISTORYS/P LAP MADELAINE, N/V. Possible bile leak.STUDYHIDA/HEPATOBILIARY SCAN W/O EFCOMPARISONCT abdomen and pelvis 12/18/[id number] mCi Tc-99m mebrofenin were injected intravenously. Planar images were obtained for 60 minutes.FINDINGSThere is along the activity in the blood pool and in the liver suggesting poor hepatocyte function.There is abnormal accumulation of activity in the middle upper abdomen in a round appearance and also in a vertical linear appearance overlying the left lobe of the liver. These do not correspond to normal anatomical structures and probably indicate a bile leak.IMPRESSION1. Findings consistent with a bile leakElectronically signed by: Owen Hamilton (Jan 07, 2023 13:15:42)
[2023-01-07] MEDS ORDERED: SUPRANE ONE (13:20)
[2023-01-07] MEDS ORDERED: NS 1,000 ML IV 1,000 ML ONE ×5 (13:25→14:18)
[2023-01-07] MEDS ORDERED: BRIDION ONE (13:50)
[2023-01-07] MEDS ORDERED: BACTROBAN TOPICAL OINT ONE (14:10)
[2023-01-07] MEDS ORDERED: TORADOL 30 MG VIAL ONE (14:28)
[2023-01-07] MEDS ORDERED: ZOFRAN INJ 4 MG VIAL IVP PRN (14:54)
[2023-01-07] MEDS ORDERED: BARHEMSYS INJ IVP PRN (14:54)
[2023-01-07] MEDS ORDERED: DILAUDID INJ IVP PRN (14:54)
[2023-01-07] MEDS ORDERED: REGLAN INJ 10 MG VIAL IVP PRN (14:54)
[2023-01-07] MEDS ORDERED: BENADRYL INJ 50 MG VIAL IVP PRN (14:54)
[2023-01-07] MEDS ORDERED: BARHEMSYS INJ ONE (15:10)
[2023-01-07] MEDS: BARHEMSYS INJ ONE (15:12)
[2023-01-07] MEDS ORDERED: DRUG FILTER EXTENSION SET ONE (16:11)
[2023-01-07] MEDS ORDERED: TOPROL XL PO ONE (16:15)
[2023-01-07] MEDS: TOPROL XL PO SCH (16:24)
[2023-01-08] MEDS: D5 1/2 NS 1,000 ML 1,000 ML IV SCH ×3 (02:49→22:45)
[2023-01-08] MEDS: CYTOTEC PO SCH ×3 (05:54→21:51)
[2023-01-08 06:29] LABS: BASOPHILS # (AUTO) 0.1 X10^3/uL (0.0-0.1); BASOPHILS % (AUTO) 0.7 % (0.2-1.0); EOSINOPHILS # (AUTO) 0.2 x10^3/uL (0.0-0.2); EOSINOPHILS % (AUTO) 2.4 % (0.9-2.9); HEMATOCRIT 31.7 % (42.0-54.0); HEMOGLOBIN 10.8 g/dL (13.5-18.0); MEAN CORPUSCULAR HEMOGLOBIN 28.3 pg (27.0-34.0); MEAN CORPUSCULAR HGB CONC 34.2 g/dL (33.0-35.0); MEAN CORPUSCULAR VOLUME 82.8 fL (80.0-100.0); MEAN PLATELET VOLUME 7.9 fL (7.4-11.0); MONOCYTES # (AUTO) 0.7 x10^3/uL (0.3-0.8); NEUTROPHILS # (AUTO) 5.4 x10^3/uL (2.2-4.8); NEUTROPHILS % (AUTO) 72.9 % (42.0-75.0); RED BLOOD COUNT 3.83 X10^6/uL (4.7-6.0); WHITE BLOOD COUNT 7.4 X10^3/uL (3.6-10.0)
[2023-01-08 06:51] LABS: ALANINE AMINOTRANSFERASE 30 Units/L (12-78); ALBUMIN 1.7 g/dL (3.4-5.0); ALKALINE PHOSPHATASE 273 Units/L (46-116); ASPARTATE AMINO TRANSFERASE 22 Units/L (15-37); BLOOD UREA NITROGEN 9 mg/dL (7-18); CALCIUM 8.1 mg/dL (8.5-10.1); CARBON DIOXIDE 29.2 mmol/L (21-32); CHLORIDE 100 mmol/L (98-107); COR CA(FOR HYPOALB) 9.9 mg/dL (8.5-10.1); COR NA(FOR HYPERGLY) 134 mmol/L (136-145); CREATININE 0.87 mg/dL (0.70-1.30); SODIUM 134 mmol/L (136-145); TOTAL PROTEIN 5.7 g/dL (6.4-8.2); eGFR NON BLACK RACES > 60 (>60)
[2023-01-08] MEDS: BARHEMSYS INJ ONE (07:41)
[2023-01-08] MEDS ORDERED: TOPROL XL PO ONE (08:09)
[2023-01-08] MEDS: TYLENOL 500 MG TAB EXTRA STRENGTH PO PRN ×3 (08:28→23:37)
[2023-01-08] MEDS: TOPROL XL PO SCH (08:28)
[2023-01-08] MEDS: PROTONIX INJ 40 MG VIAL IVP SCH ×2 (08:29→20:35)
[2023-01-08] MEDS: LEVAQUIN PREMIX IV 750 MG 750 MG/150 ML BAG IV SCH (08:29)
[2023-01-08] MEDS: [UNRECOGNIZED DRUG - OTHER] IV SCH ×6 (08:33→10:33)
[2023-01-08] MEDS: CLINIMIX IV SCH ×14 (08:33→22:45)
[2023-01-08] MEDS: TPN ELECTROLYTES IV SCH ×14 (08:33→22:45)
--- NOTE | 2023-01-08 10:52 | DR.PROGNOT ---
HOSPITAL PROGRESS NOTE Progress Note for Day of: Progress Note Date: 01/08/23 Chief Complaint Chief Complaint: post op day 1 laparoscopy and drainage of bile collection . feeling much better today . less pain . moderate drainage in JPs improving LFT low grade fever . Past Medical Family Social History Past Med/Fam/Surg Hx: No changes since H&P Allergies: Allergies ampicillin Allergy (Unknown, Verified 01/04/23 08:42) childhood allergy Reason: Drug allergy iodine Allergy (Unknown, Verified 01/04/23 08:42) RASH Comments: Pt reports allergy to Iodine and shrimp Penicillins Allergy (Unknown, Verified 01/04/23 08:42) shrimp Allergy (Verified 01/04/23 11:39) PT STATES IT MAKES HIS THROAT ITCH. DISCUSSED WITH ELE ORDONEZ,PHARMACIST, AND WAS OK'D PER ELE. Vital Signs Vital Signs: Temperature 101.5 F Pulse Rate [Left Brachial] 93 Pulse Rate 105 Respiratory Rate 18 Blood Pressure [Right Arm] 111/68 Blood Pressure [Left Arm] 101/51 Blood Pressure 116/60 O2 Sat by Pulse Oximetry 92 Physical Exam Oriented: Normal Respiratory: Normal Cardiovascular: Normal GI:Auscultation: Other (soft, flat abdomen with mild diffuse tenderness ) Mood Description: Calm and Appropriate Speech Pattern: Clear and Appropriate Laboratory and Diagnostics Result Diagrams: 01/08/23 05:20 01/08/23 05:20 Labs: Laboratory WBC 7.4 X10^3/uL (3.6-10.0) 01/08/23 05:20 RBC 3.83 X10^6/uL (4.7-6.0) L 01/08/23 05:20 Hgb 10.8 g/dL (13.5-18.0) L 01/08/23 05:20 Hct 31.7 % (42.0-54.0) L 01/08/23 05:20 MCV 82.8 fL (80.0-100.0) 01/08/23 05:20 MCH 28.3 pg (27.0-34.0) 01/08/23 05:20 MCHC 34.2 g/dL (33.0-35.0) 01/08/23 05:20 RDW 13.0 % (11.6-16.5) 01/08/23 05:20 Plt Count 289 X10^3/uL (150.0-450.0) 01/08/23 05:20 MPV 7.9 fL (7.4-11.0) 01/08/23 05:20 Neut % (Auto) 72.9 % (42.0-75.0) 01/08/23 05:20 Lymph % (Auto) 14.0 % (21.0-51.0) L 01/08/23 05:20 [place] % (Auto) 10.0 % (0.0-13.0) 01/08/23 05:20 Eos % (Auto) 2.4 % (0.9-2.9) 01/08/23 05:20 Baso % (Auto) 0.7 % (0.2-1.0) 01/08/23 05:20 Neut # (Auto) 5.4 x10^3/uL (2.2-4.8) H 01/08/23 05:20 Lymph # (Auto) 1.0 X10^3/uL (1.3-2.9) L 01/08/23 05:20 [place] # (Auto) 0.7 x10^3/uL (0.3-0.8) 01/08/23 05:20 Eos # (Auto) 0.2 x10^3/uL (0.0-0.2) 01/08/23 05:20 Baso # (Auto) 0.1 X10^3/uL (0.0-0.1) 01/08/23 05:20 Absolute Nucleated RBC 0.0 /100WBC 01/08/23 05:20 Sodium 134 mmol/L (136-145) L 01/08/23 05:20 Corrected Sodium 134 mmol/L (136-145) L 01/08/23 05:20 Potassium 4.3 mmol/L (3.5-5.1) 01/08/23 05:20 Chloride 100 mmol/L (98-107) 01/08/23 05:20 Carbon Dioxide 29.2 mmol/L (21-32) 01/08/23 05:20 BUN 9 mg/dL (7-18) 01/08/23 05:20 Creatinine 0.87 mg/dL (0.70-1.30) 01/08/23 05:20 Est GFR (MDRD) Af Amer > 60 (>60) 01/08/23 05:20 Est GFR (MDRD) Non-Af > 60 (>60) 01/08/23 05:20 Glucose 120 mg/dL (65-99) H 01/08/23 05:20 Calcium 8.1 mg/dL (8.5-10.1) L 01/08/23 05:20 Corrected Calcium 9.9 mg/dL (8.5-10.1) 01/08/23 05:20 Magnesium 2.0 mg/dL (2.0-2.9) 01/07/23 05:12 Total Bilirubin 1.30 mg/dL (0.2-1.0) H 01/08/23 05:20 AST 22 Units/L (15-37) 01/08/23 05:20 ALT 30 Units/L (12-78) 01/08/23 05:20 Alkaline Phosphatase 273 Units/L (46-116) H 01/08/23 05:20 Total Protein 5.7 g/dL (6.4-8.2) L 01/08/23 05:20 Albumin 1.7 g/dL (3.4-5.0) L 01/08/23 05:20 Globulin 4.0 g/dL (2.5-4.5) 01/08/23 05:20 Albumin/Globulin Ratio 0.4 Ratio (1.1-2.1) L 01/08/23 05:20 Prealbumin 8.4 mg/dL (18-35.7) L 01/07/23 05:12 Specimen Type Clean catch urine 01/05/23 21:08 Urine Color [place] (YELLOW) 01/05/23 21:08 Urine Appearance Mucoid (CLEAR) 01/05/23 21:08 Urine pH 6.0 (5.0 - 8.0) 01/05/23 21:08 Ur Specific [place] 1.025 (1.000-1.030) 01/05/23 21:08 Urine Protein 2+ (NEGATIVE) 01/05/23 21:08 Urine Glucose (UA) Negative (NEGATIVE) 01/05/23 21:08 Urine Ketones 1+ (NEGATIVE) 01/05/23 21:08 Urine Blood Negative (NEGATIVE) 01/05/23 21:08 Urine Nitrite Negative (NEGATIVE) 01/05/23 21:08 Urine Bilirubin 1+ (NEGATIVE) 01/05/23 21:08 Urine Urobilinogen 1+ (NORMAL) 01/05/23 21:08 Ur Leukocyte Esterase Negative (NEGATIVE) 01/05/23 21:08 Urine RBC 0-2 /HPF (0-3) 01/05/23 21:08 Urine WBC None seen /HPF (0-5) 01/05/23 21:08 Ur Squamous Epith Cells Rare /HPF (NEGATIVE) 01/05/23 21:08 Urine Bacteria Trace /HPF (NEGATIVE) 01/05/23 21:08 Granular Casts Few /LPF (NEGATIVE) 01/05/23 21:08 Urine Mucus Numerous /HPF (NEGATIVE) 01/05/23 21:08 Ur Culture Indicated? No/not indicated 01/05/23 21:08 Tissue Pathology See comment. 01/04/23 09:39 Assessment and Plan 1: post op drainage bile collection in the abdomen . on IV ABT , 2: poor oral intake . on peripheral TPN .and Albumin supplement 3: tachycardia . on Toprol 50 daily
[2023-01-08] MEDS: [UNRECOGNIZED DRUG - OTHER] IV SCH ×8 (13:04→22:45)
[2023-01-09] MEDS: TPN ELECTROLYTES IV SCH ×8 (00:38→16:21)
[2023-01-09] MEDS: CLINIMIX IV SCH ×8 (00:38→16:21)
[2023-01-09] MEDS: [UNRECOGNIZED DRUG - OTHER] IV SCH ×8 (00:38→16:21)
[2023-01-09] MEDS: D5 1/2 NS 1,000 ML 1,000 ML IV SCH ×2 (02:43→16:20)
[2023-01-09] MEDS: CYTOTEC PO SCH ×3 (05:41→21:39)
[2023-01-09 06:11] LABS: BASOPHILS % (AUTO) 0.8 % (0.2-1.0); EOSINOPHILS # (AUTO) 0.4 x10^3/uL (0.0-0.2); EOSINOPHILS % (AUTO) 7.6 % (0.9-2.9); HEMATOCRIT 30.9 % (42.0-54.0); HEMOGLOBIN 10.6 g/dL (13.5-18.0); LYMPHOCYTES # (AUTO) 1.2 X10^3/uL (1.3-2.9); LYMPHOCYTES % (AUTO) 22.4 % (21.0-51.0); MEAN CORPUSCULAR HEMOGLOBIN 28.5 pg (27.0-34.0); MEAN CORPUSCULAR HGB CONC 34.4 g/dL (33.0-35.0); MEAN PLATELET VOLUME 7.6 fL (7.4-11.0); MONOCYTES # (AUTO) 0.6 x10^3/uL (0.3-0.8); MONOCYTES % (AUTO) 10.2 % (0.0-13.0); NEUTROPHILS # (AUTO) 3.3 x10^3/uL (2.2-4.8); RED BLOOD COUNT 3.72 X10^6/uL (4.7-6.0); WHITE BLOOD COUNT 5.5 X10^3/uL (3.6-10.0)
[2023-01-09 06:29] LABS: ALANINE AMINOTRANSFERASE 59 Units/L (12-78); ALBUMIN 1.6 g/dL (3.4-5.0); ALKALINE PHOSPHATASE 260 Units/L (46-116); ASPARTATE AMINO TRANSFERASE 52 Units/L (15-37); BLOOD UREA NITROGEN 8 mg/dL (7-18); CALCIUM 7.8 mg/dL (8.5-10.1); CARBON DIOXIDE 30.2 mmol/L (21-32); CHLORIDE 102 mmol/L (98-107); COR CA(FOR HYPOALB) 9.7 mg/dL (8.5-10.1); COR NA(FOR HYPERGLY) 135 mmol/L (136-145); CREATININE 0.75 mg/dL (0.70-1.30); SODIUM 135 mmol/L (136-145); TOTAL PROTEIN 5.7 g/dL (6.4-8.2); eGFR NON BLACK RACES > 60 (>60)
--- NOTE | 2023-01-09 09:15 | DR.PROGNOT ---
HOSPITAL PROGRESS NOTE Progress Note for Day of: Progress Note Date: 01/09/23 Chief Complaint Chief Complaint: post op day 2 laparoscopy and drainage of bile collection . anxious ,moderate Rt side abdominal pain .. still having poor appetite less drainage in MANUEL 80 cc last 12 h . Bilirubin normal . improving LFT Past Medical Family Social History Past Med/Fam/Surg Hx: No changes since H&P Allergies: Allergies ampicillin Allergy (Unknown, Verified 01/04/23 08:42) childhood allergy Reason: Drug allergy iodine Allergy (Unknown, Verified 01/04/23 08:42) RASH Comments: Pt reports allergy to Iodine and shrimp Penicillins Allergy (Unknown, Verified 01/04/23 08:42) shrimp Allergy (Verified 01/04/23 11:39) PT STATES IT MAKES HIS THROAT ITCH. DISCUSSED WITH ELE ORDONEZ,PHARMACIST, AND WAS OK'D PER ELE. Review Of Systems ROS: No change since H&P Vital Signs Vital Signs: Temperature 99.5 F Pulse Rate [Left Brachial] 89 Pulse Rate 105 Respiratory Rate 20 Blood Pressure [Right Arm] 111/68 Blood Pressure [Left Arm] 103/50 Blood Pressure 116/60 O2 Sat by Pulse Oximetry 96 Physical Exam Oriented: Normal Respiratory: Normal Cardiovascular: Normal GI:Palpation: Other (soft, flat mith mild Rt side tenderness .BS+) Mood Description: Calm and Appropriate Speech Pattern: Clear and Appropriate Laboratory and Diagnostics Result Diagrams: 01/09/23 05:43 01/09/23 05:43 Labs: Laboratory WBC 5.5 X10^3/uL (3.6-10.0) 01/09/23 05:43 RBC 3.72 X10^6/uL (4.7-6.0) L 01/09/23 05:43 Hgb 10.6 g/dL (13.5-18.0) L 01/09/23 05:43 Hct 30.9 % (42.0-54.0) L 01/09/23 05:43 MCV 83.0 fL (80.0-100.0) 01/09/23 05:43 MCH 28.5 pg (27.0-34.0) 01/09/23 05:43 MCHC 34.4 g/dL (33.0-35.0) 01/09/23 05:43 RDW 13.0 % (11.6-16.5) 01/09/23 05:43 Plt Count 271 X10^3/uL (150.0-450.0) 01/09/23 05:43 MPV 7.6 fL (7.4-11.0) 01/09/23 05:43 Neut % (Auto) 59.0 % (42.0-75.0) 01/09/23 05:43 Lymph % (Auto) 22.4 % (21.0-51.0) 01/09/23 05:43 [place] % (Auto) 10.2 % (0.0-13.0) 01/09/23 05:43 Eos % (Auto) 7.6 % (0.9-2.9) H 01/09/23 05:43 Baso % (Auto) 0.8 % (0.2-1.0) 01/09/23 05:43 Neut # (Auto) 3.3 x10^3/uL (2.2-4.8) 01/09/23 05:43 Lymph # (Auto) 1.2 X10^3/uL (1.3-2.9) L 01/09/23 05:43 [place] # (Auto) 0.6 x10^3/uL (0.3-0.8) 01/09/23 05:43 Eos # (Auto) 0.4 x10^3/uL (0.0-0.2) H 01/09/23 05:43 Baso # (Auto) 0.0 X10^3/uL (0.0-0.1) 01/09/23 05:43 Absolute Nucleated RBC 0.0 /100WBC 01/09/23 05:43 Sodium 135 mmol/L (136-145) L 01/09/23 05:43 Corrected Sodium 135 mmol/L (136-145) L 01/09/23 05:43 Potassium 3.8 mmol/L (3.5-5.1) 01/09/23 05:43 Chloride 102 mmol/L (98-107) 01/09/23 05:43 Carbon Dioxide 30.2 mmol/L (21-32) 01/09/23 05:43 BUN 8 mg/dL (7-18) 01/09/23 05:43 Creatinine 0.75 mg/dL (0.70-1.30) 01/09/23 05:43 Est GFR (MDRD) Af Amer > 60 (>60) 01/09/23 05:43 Est GFR (MDRD) Non-Af > 60 (>60) 01/09/23 05:43 Glucose 111 mg/dL (65-99) H 01/09/23 05:43 Calcium 7.8 mg/dL (8.5-10.1) L 01/09/23 05:43 Corrected Calcium 9.7 mg/dL (8.5-10.1) 01/09/23 05:43 Magnesium 2.0 mg/dL (2.0-2.9) 01/07/23 05:12 Total Bilirubin 0.90 mg/dL (0.2-1.0) 01/09/23 05:43 AST 52 Units/L (15-37) H 01/09/23 05:43 ALT 59 Units/L (12-78) 01/09/23 05:43 Alkaline Phosphatase 260 Units/L (46-116) H 01/09/23 05:43 Total Protein 5.7 g/dL (6.4-8.2) L 01/09/23 05:43 Albumin 1.6 g/dL (3.4-5.0) L 01/09/23 05:43 Globulin 4.1 g/dL (2.5-4.5) 01/09/23 05:43 Albumin/Globulin Ratio 0.4 Ratio (1.1-2.1) L 01/09/23 05:43 Prealbumin 8.4 mg/dL (18-35.7) L 01/07/23 05:12 Specimen Type Clean catch urine 01/05/23 21:08 Urine Color [place] (YELLOW) 01/05/23 21:08 Urine Appearance Mucoid (CLEAR) 01/05/23 21:08 Urine pH 6.0 (5.0 - 8.0) 01/05/23 21:08 Ur Specific [place] 1.025 (1.000-1.030) 01/05/23 21:08 Urine Protein 2+ (NEGATIVE) 01/05/23 21:08 Urine Glucose (UA) Negative (NEGATIVE) 01/05/23 21:08 Urine Ketones 1+ (NEGATIVE) 01/05/23 21:08 Urine Blood Negative (NEGATIVE) 01/05/23 21:08 Urine Nitrite Negative (NEGATIVE) 01/05/23 21:08 Urine Bilirubin 1+ (NEGATIVE) 01/05/23 21:08 Urine Urobilinogen 1+ (NORMAL) 01/05/23 21:08 Ur Leukocyte Esterase Negative (NEGATIVE) 01/05/23 21:08 Urine RBC 0-2 /HPF (0-3) 01/05/23 21:08 Urine WBC None seen /HPF (0-5) 01/05/23 21:08 Ur Squamous Epith Cells Rare /HPF (NEGATIVE) 01/05/23 21:08 Urine Bacteria Trace /HPF (NEGATIVE) 01/05/23 21:08 Granular Casts Few /LPF (NEGATIVE) 01/05/23 21:08 Urine Mucus Numerous /HPF (NEGATIVE) 01/05/23 21:08 Ur Culture Indicated? No/not indicated 01/05/23 21:08 Tissue Pathology See comment. 01/04/23 09:39 Assessment and Plan 1: post op drainage bile collection in the abdomen . on IV ABT , 2: poor oral intake . on peripheral TPN .and Albumin supplement
[2023-01-09] MEDS: ATIVAN TAB 1 MG PO PRN ×2 (09:30→21:41)
[2023-01-09] MEDS: LEVAQUIN PREMIX IV 750 MG 750 MG/150 ML BAG IV SCH (09:30)
[2023-01-09] MEDS: PROTONIX INJ 40 MG VIAL IVP SCH ×2 (09:30→21:41)
[2023-01-09] MEDS: ALBUMIN HUMAN 25%- 100 ML 100 ML IV SCH (09:31)
--- NOTE | 2023-01-09 11:37 | PCM.PROG ---
Progress Note Progress Note for Day of Date of Exam: 01/09/23 Subjective Subjective: Pt is a 27 year old male diagnosed with a biliary duct leak, status post cholecystectomy, and Dr. Diego has placed a MANUEL drain. This morning patient is resting comfortably in bed. Blood pressure and heart rate within normal limits. Drain producing output. Labs: Wbc 5.5, Hgb 10.6, Plt 271, Na 135, K 3.8, Creatinine 0.75, Glucose 111. General surgery is primary. Will continue with current treatment plan, IVF and IV levaquin. Continue to closely monitor and follow up labs in the morning. Past Medical Family Social History Past Med/Fam/Surg Hx: No changes since H&P Allergies: Allergies ampicillin Allergy (Unknown, Verified 01/04/23 08:42) childhood allergy Reason: Drug allergy iodine Allergy (Unknown, Verified 01/04/23 08:42) RASH Comments: Pt reports allergy to Iodine and shrimp Penicillins Allergy (Unknown, Verified 01/04/23 08:42) shrimp Allergy (Verified 01/04/23 11:39) PT STATES IT MAKES HIS THROAT ITCH. DISCUSSED WITH ELE ORDONEZ,PHARMACIST, AND WAS OK'D PER ELE. Review of Systems ROS: No change since H&P Vital Signs and I&O's Vital Signs: Temperature 98.7 F Pulse Rate [Left Brachial] 96 Pulse Rate 105 Respiratory Rate 18 Blood Pressure [Right Arm] 100/58 Blood Pressure [Left Arm] 103/50 Blood Pressure 116/60 O2 Sat by Pulse Oximetry 95 Intake and Output: Intake & Output 01/06/23 01/07/23 01/08/23 01/09/23 23:59 23:59 23:59 23:59 Intake Total 3811 / 3811 61894 / 01549 4313 / 4313 806 / 806 Output Total 5210 / 5210 410 / 410 45 / 45 Balance 3811 / 3811 4926 / 4926 3903 / 3903 761 / 761 Physical Exam Oriented: Normal Respiratory: Normal Cardiovascular: Normal Auscultation: Bowel Sounds: Other (soft, flat abdomen with mild diffuse tenderness ) Mood Description: Calm and Appropriate Speech Pattern: Clear and Appropriate Laboratory and Diagnostics Result Diagrams: 01/09/23 05:43 01/09/23 05:43 Labs: Laboratory WBC 5.5 X10^3/uL (3.6-10.0) 01/09/23 05:43 RBC 3.72 X10^6/uL (4.7-6.0) L 01/09/23 05:43 Hgb 10.6 g/dL (13.5-18.0) L 01/09/23 05:43 Hct 30.9 % (42.0-54.0) L 01/09/23 05:43 MCV 83.0 fL (80.0-100.0) 01/09/23 05:43 MCH 28.5 pg (27.0-34.0) 01/09/23 05:43 MCHC 34.4 g/dL (33.0-35.0) 01/09/23 05:43 RDW 13.0 % (11.6-16.5) 01/09/23 05:43 Plt Count 271 X10^3/uL (150.0-450.0) 01/09/23 05:43 MPV 7.6 fL (7.4-11.0) 01/09/23 05:43 Neut % (Auto) 59.0 % (42.0-75.0) 01/09/23 05:43 Lymph % (Auto) 22.4 % (21.0-51.0) 01/09/23 05:43 [place] % (Auto) 10.2 % (0.0-13.0) 01/09/23 05:43 Eos % (Auto) 7.6 % (0.9-2.9) H 01/09/23 05:43 Baso % (Auto) 0.8 % (0.2-1.0) 01/09/23 05:43 Neut # (Auto) 3.3 x10^3/uL (2.2-4.8) 01/09/23 05:43 Lymph # (Auto) 1.2 X10^3/uL (1.3-2.9) L 01/09/23 05:43 [place] # (Auto) 0.6 x10^3/uL (0.3-0.8) 01/09/23 05:43 Eos # (Auto) 0.4 x10^3/uL (0.0-0.2) H 01/09/23 05:43 Baso # (Auto) 0.0 X10^3/uL (0.0-0.1) 01/09/23 05:43 Absolute Nucleated RBC 0.0 /100WBC 01/09/23 05:43 Sodium 135 mmol/L (136-145) L 01/09/23 05:43 Corrected Sodium 135 mmol/L (136-145) L 01/09/23 05:43 Potassium 3.8 mmol/L (3.5-5.1) 01/09/23 05:43 Chloride 102 mmol/L (98-107) 01/09/23 05:43 Carbon Dioxide 30.2 mmol/L (21-32) 01/09/23 05:43 BUN 8 mg/dL (7-18) 01/09/23 05:43 Creatinine 0.75 mg/dL (0.70-1.30) 01/09/23 05:43 Est GFR (MDRD) Af Amer > 60 (>60) 01/09/23 05:43 Est GFR (MDRD) Non-Af > 60 (>60) 01/09/23 05:43 Glucose 111 mg/dL (65-99) H 01/09/23 05:43 Calcium 7.8 mg/dL (8.5-10.1) L 01/09/23 05:43 Corrected Calcium 9.7 mg/dL (8.5-10.1) 01/09/23 05:43 Magnesium 2.0 mg/dL (2.0-2.9) 01/07/23 05:12 Total Bilirubin 0.90 mg/dL (0.2-1.0) 01/09/23 05:43 AST 52 Units/L (15-37) H 01/09/23 05:43 ALT 59 Units/L (12-78) 01/09/23 05:43 Alkaline Phosphatase 260 Units/L (46-116) H 01/09/23 05:43 Total Protein 5.7 g/dL (6.4-8.2) L 01/09/23 05:43 Albumin 1.6 g/dL (3.4-5.0) L 01/09/23 05:43 Globulin 4.1 g/dL (2.5-4.5) 01/09/23 05:43 Albumin/Globulin Ratio 0.4 Ratio (1.1-2.1) L 01/09/23 05:43 Prealbumin 8.4 mg/dL (18-35.7) L 01/07/23 05:12 Specimen Type Clean catch urine 01/05/23 21:08 Urine Color [place] (YELLOW) 01/05/23 21:08 Urine Appearance Mucoid (CLEAR) 01/05/23 21:08 Urine pH 6.0 (5.0 - 8.0) 01/05/23 21:08 Ur Specific [place] 1.025 (1.000-1.030) 01/05/23 21:08 Urine Protein 2+ (NEGATIVE) 01/05/23 21:08 Urine Glucose (UA) Negative (NEGATIVE) 01/05/23 21:08 Urine Ketones 1+ (NEGATIVE) 01/05/23 21:08 Urine Blood Negative (NEGATIVE) 01/05/23 21:08 Urine Nitrite Negative (NEGATIVE) 01/05/23 21:08 Urine Bilirubin 1+ (NEGATIVE) 01/05/23 21:08 Urine Urobilinogen 1+ (NORMAL) 01/05/23 21:08 Ur Leukocyte Esterase Negative (NEGATIVE) 01/05/23 21:08 Urine RBC 0-2 /HPF (0-3) 01/05/23 21:08 Urine WBC None seen /HPF (0-5) 01/05/23 21:08 Ur Squamous Epith Cells Rare /HPF (NEGATIVE) 01/05/23 21:08 Urine Bacteria Trace /HPF (NEGATIVE) 01/05/23 21:08 Granular Casts Few /LPF (NEGATIVE) 01/05/23 21:08 Urine Mucus Numerous /HPF (NEGATIVE) 01/05/23 21:08 Ur Culture Indicated? No/not indicated 01/05/23 21:08 Tissue Pathology See comment. 01/04/23 09:39 Plan (1) Bile leak, postoperative: Status: Acute
[2023-01-09] MEDS: TOPROL XL PO SCH (13:13)
[2023-01-09] MEDS: MORPHINE SULFATE INJ 4 MG IVP PRN (14:30)
[2023-01-09] MEDS: ZOFRAN INJ 4 MG VIAL IVP PRN (17:00)
[2023-01-09] MEDS: PERCOCET TAB 5/325 MG PO PRN ×2 (17:00→21:40)
[2023-01-10] MEDS: D5 1/2 NS 1,000 ML 1,000 ML IV SCH ×4 (00:48→18:11)
[2023-01-10] MEDS: TYLENOL 500 MG TAB EXTRA STRENGTH PO PRN (04:32)
[2023-01-10] MEDS: PERCOCET TAB 5/325 MG PO PRN ×3 (04:33→14:59)
[2023-01-10] MEDS: TPN ELECTROLYTES IV SCH ×12 (04:51→18:35)
[2023-01-10] MEDS: [UNRECOGNIZED DRUG - OTHER] IV SCH ×12 (04:51→18:35)
[2023-01-10] MEDS: CLINIMIX IV SCH ×12 (04:51→18:35)
[2023-01-10 05:04] LABS: BASOPHILS # (AUTO) 0.1 X10^3/uL (0.0-0.1); BASOPHILS % (AUTO) 1.1 % (0.2-1.0); EOSINOPHILS # (AUTO) 0.4 x10^3/uL (0.0-0.2); EOSINOPHILS % (AUTO) 7.1 % (0.9-2.9); HEMATOCRIT 32.3 % (42.0-54.0); LYMPHOCYTES # (AUTO) 1.4 X10^3/uL (1.3-2.9); LYMPHOCYTES % (AUTO) 23.7 % (21.0-51.0); MEAN CORPUSCULAR HEMOGLOBIN 28.4 pg (27.0-34.0); MEAN CORPUSCULAR HGB CONC 34.1 g/dL (33.0-35.0); MEAN CORPUSCULAR VOLUME 83.1 fL (80.0-100.0); MEAN PLATELET VOLUME 7.5 fL (7.4-11.0); MONOCYTES # (AUTO) 0.5 x10^3/uL (0.3-0.8); MONOCYTES % (AUTO) 8.6 % (0.0-13.0); NEUTROPHILS # (AUTO) 3.5 x10^3/uL (2.2-4.8); NEUTROPHILS % (AUTO) 59.5 % (42.0-75.0); RED BLOOD COUNT 3.89 X10^6/uL (4.7-6.0); RED CELL DISTRIBUTION WIDTH 12.9 % (11.6-16.5); WHITE BLOOD COUNT 5.9 X10^3/uL (3.6-10.0)
[2023-01-10 05:18] LABS: ALANINE AMINOTRANSFERASE 74 Units/L (12-78); ALBUMIN 2.2 g/dL (3.4-5.0); ALKALINE PHOSPHATASE 270 Units/L (46-116); ASPARTATE AMINO TRANSFERASE 50 Units/L (15-37); BLOOD UREA NITROGEN 6 mg/dL (7-18); CALCIUM 8.3 mg/dL (8.5-10.1); CARBON DIOXIDE 28.8 mmol/L (21-32); COR CA(FOR HYPOALB) 9.7 mg/dL (8.5-10.1); CREATININE 0.76 mg/dL (0.70-1.30); TOTAL PROTEIN 6.7 g/dL (6.4-8.2); eGFR NON BLACK RACES > 60 (>60)
[2023-01-10] MEDS: CYTOTEC PO SCH ×3 (05:22→21:03)
[2023-01-10 06:03] LABS: CHLORIDE 99 mmol/L (98-107); COR NA(FOR HYPERGLY) 134 mmol/L (136-145); SODIUM 134 mmol/L (136-145)
[2023-01-10] MEDS: ALBUMIN HUMAN 25%- 100 ML 100 ML IV SCH (08:51)
[2023-01-10] MEDS: LEVAQUIN PREMIX IV 750 MG 750 MG/150 ML BAG IV SCH (08:51)
[2023-01-10] MEDS: PROTONIX INJ 40 MG VIAL IVP SCH ×2 (08:52→21:03)
[2023-01-10] MEDS: K-DUR TAB 20 MEQ PO PRN (08:52)
[2023-01-10] MEDS: TOPROL XL PO SCH (09:48)
--- NOTE | 2023-01-10 10:07 | DR.PROGNOT ---
HOSPITAL PROGRESS NOTE Progress Note for Day of: Progress Note Date: 01/10/23 Chief Complaint Chief Complaint: post op day 3 laparoscopy and drainage of bile collection . feeling better luis ,moderate Rt side abdominal pain .. still having poor appetite less drainage in MANUEL 55 cc cc last 12 h . Bilirubin normal . slight elevated LFT . low grade fever . Past Medical Family Social History Past Med/Fam/Surg Hx: No changes since H&P Allergies: Allergies ampicillin Allergy (Unknown, Verified 01/04/23 08:42) childhood allergy Reason: Drug allergy iodine Allergy (Unknown, Verified 01/04/23 08:42) RASH Comments: Pt reports allergy to Iodine and shrimp Penicillins Allergy (Unknown, Verified 01/04/23 08:42) shrimp Allergy (Verified 01/04/23 11:39) PT STATES IT MAKES HIS THROAT ITCH. DISCUSSED WITH ELE ORDONEZ,PHARMACIST, AND WAS OK'D PER ELE. Review Of Systems ROS: No change since H&P Vital Signs Vital Signs: Temperature 99.5 F Pulse Rate [Left Brachial] 100 Pulse Rate 100 Respiratory Rate 20 Blood Pressure [Right Arm] 111/68 Blood Pressure [Left Arm] 103/50 Blood Pressure 116/60 O2 Sat by Pulse Oximetry 96 Physical Exam Oriented: Normal Respiratory: Normal Cardiovascular: Normal GI:Auscultation: Other (soft, flat abdomen with mild diffuse tenderness ) GI:Palpation: Other (soft, flat mith mild Rt side tenderness .BS+) Mood Description: Calm and Appropriate Speech Pattern: Clear and Appropriate Laboratory and Diagnostics Result Diagrams: 01/10/23 04:41 01/10/23 04:41 Labs: Laboratory WBC 5.9 X10^3/uL (3.6-10.0) 01/10/23 04:41 RBC 3.89 X10^6/uL (4.7-6.0) L 01/10/23 04:41 Hgb 11.0 g/dL (13.5-18.0) L 01/10/23 04:41 Hct 32.3 % (42.0-54.0) L 01/10/23 04:41 MCV 83.1 fL (80.0-100.0) 01/10/23 04:41 MCH 28.4 pg (27.0-34.0) 01/10/23 04:41 MCHC 34.1 g/dL (33.0-35.0) 03/12/23 04:41 RDW 12.9 % (11.6-16.5) 01/10/23 04:41 Plt Count 321 X10^3/uL (150.0-450.0) 01/10/23 04:41 MPV 7.5 fL (7.4-11.0) 01/10/23 04:41 Neut % (Auto) 59.5 % (42.0-75.0) 01/10/23 04:41 Lymph % (Auto) 23.7 % (21.0-51.0) 01/10/23 04:41 Ray % (Auto) 8.6 % (0.0-13.0) 01/10/23 04:41 Eos % (Auto) 7.1 % (0.9-2.9) H 01/10/23 04:41 Baso % (Auto) 1.1 % (0.2-1.0) H 01/10/23 04:41 Neut # (Auto) 3.5 x10^3/uL (2.2-4.8) 01/10/23 04:41 Lymph # (Auto) 1.4 X10^3/uL (1.3-2.9) 01/10/23 04:41 Ray # (Auto) 0.5 x10^3/uL (0.3-0.8) 01/10/23 04:41 Eos # (Auto) 0.4 x10^3/uL (0.0-0.2) H 01/10/23 04:41 Baso # (Auto) 0.1 X10^3/uL (0.0-0.1) 01/10/23 04:41 Absolute Nucleated RBC 0.0 /100WBC 01/10/23 04:41 Sodium 134 mmol/L (136-145) L 01/10/23 04:41 Corrected Sodium 134 mmol/L (136-145) L 01/10/23 04:41 Potassium 3.7 mmol/L (3.5-5.1) 01/10/23 04:41 Chloride 99 mmol/L (98-107) 01/10/23 04:41 Carbon Dioxide 28.8 mmol/L (21-32) 01/10/23 04:41 BUN 6 mg/dL (7-18) L 01/10/23 04:41 Creatinine 0.76 mg/dL (0.70-1.30) 01/10/23 04:41 Est GFR (MDRD) Af Amer > 60 (>60) 01/10/23 04:41 Est GFR (MDRD) Non-Af > 60 (>60) 01/10/23 04:41 Glucose 112 mg/dL (65-99) H 01/10/23 04:41 Calcium 8.3 mg/dL (8.5-10.1) L 01/10/23 04:41 Corrected Calcium 9.7 mg/dL (8.5-10.1) 01/10/23 04:41 Magnesium 2.0 mg/dL (2.0-2.9) 01/07/23 05:12 Total Bilirubin 1.00 mg/dL (0.2-1.0) 01/10/23 04:41 AST 50 Units/L (15-37) H 01/10/23 04:41 ALT 74 Units/L (12-78) 01/10/23 04:41 Alkaline Phosphatase 270 Units/L (46-116) H 01/10/23 04:41 Total Protein 6.7 g/dL (6.4-8.2) 01/10/23 04:41 Albumin 2.2 g/dL (3.4-5.0) L 01/10/23 04:41 Globulin 4.5 g/dL (2.5-4.5) 01/10/23 04:41 Albumin/Globulin Ratio 0.5 Ratio (1.1-2.1) L 01/10/23 04:41 Prealbumin 8.4 mg/dL (18-35.7) L 01/07/23 05:12 Specimen Type Clean catch urine 01/05/23 21:08 Urine Color Sophie (YELLOW) 01/05/23 21:08 Urine Appearance Mucoid (CLEAR) 01/05/23 21:08 Urine pH 6.0 (5.0 - 8.0) 01/05/23 21:08 Ur Specific [place] 1.025 (1.000-1.030) 01/05/23 21:08 Urine Protein 2+ (NEGATIVE) 01/05/23 21:08 Urine Glucose (UA) Negative (NEGATIVE) 01/05/23 21:08 Urine Ketones 1+ (NEGATIVE) 01/05/23 21:08 Urine Blood Negative (NEGATIVE) 01/05/23 21:08 Urine Nitrite Negative (NEGATIVE) 01/05/23 21:08 Urine Bilirubin 1+ (NEGATIVE) 01/05/23 21:08 Urine Urobilinogen 1+ (NORMAL) 01/05/23 21:08 Ur Leukocyte Esterase Negative (NEGATIVE) 01/05/23 21:08 Urine RBC 0-2 /HPF (0-3) 01/05/23 21:08 Urine WBC None seen /HPF (0-5) 01/05/23 21:08 Ur Squamous Epith Cells Rare /HPF (NEGATIVE) 01/05/23 21:08 Urine Bacteria Trace /HPF (NEGATIVE) 01/05/23 21:08 Granular Casts Few /LPF (NEGATIVE) 01/05/23 21:08 Urine Mucus Numerous /HPF (NEGATIVE) 01/05/23 21:08 Ur Culture Indicated? No/not indicated 01/05/23 21:08 Tissue Pathology See comment. 01/04/23 09:39 Assessment and Plan 1: post op drainage bile collection in the abdomen . on IV ABT , 2: poor oral intake . on peripheral TPN .Ensue supplement ,and Albumin . 3: tachycardia . on Toprol 50 daily
--- NOTE | 2023-01-10 10:16 | RAD ---
HISTORYPostsurgical bile leakSTUDYAP chestCOMPARISONFebruary 2022FINDINGSHeart size normal. Elevated diaphragm with low lung volumes, accentuating areas of bibasal atelectasis. There is no definite pneumonia or pleural fluid.IMPRESSIONBilateral lower lung atelectasis accentuated by diaphragm elevation.Electronically signed by: OSIEL MCDONALD (Jan 10, 2023 10:14:37)
--- NOTE | 2023-01-10 11:09 | PCM.PROG ---
Progress Note Progress Note for Day of Date of Exam: 01/10/23 Subjective Subjective: Pt is a 27 year old male diagnosed with a biliary duct leak, status post cholecystectomy, and Dr. Diego has placed a MANUEL drain. This morning patient is resting comfortably in bed. Blood pressure and heart rate within normal limits. His appetite is slowly improving. MANUEL Drain producing output less output. No acute events overnight. Labs: Wbc 5.9, Hgb 11, Plt 321, Na 134, K 3.7, Creatinine 0.76, Glucose 112. General surgery is primary. CXR this morning revealed atelectasis. Incentive spirometer given to patient. Will continue with current treatment plan, IVF and IV levaquin. Continue to closely monitor and follow up labs in the morning. Past Medical Family Social History Past Med/Fam/Surg Hx: No changes since H&P Allergies: Allergies ampicillin Allergy (Unknown, Verified 01/04/23 08:42) childhood allergy Reason: Drug allergy iodine Allergy (Unknown, Verified 01/04/23 08:42) RASH Comments: Pt reports allergy to Iodine and shrimp Penicillins Allergy (Unknown, Verified 01/04/23 08:42) shrimp Allergy (Verified 01/04/23 11:39) PT STATES IT MAKES HIS THROAT ITCH. DISCUSSED WITH ELE ORDONEZ,PHARMACIST, AND WAS OK'D PER ELE. Review of Systems ROS: No change since H&P Vital Signs and I&O's Vital Signs: Temperature 99.5 F Pulse Rate [Left Brachial] 100 Pulse Rate 100 Respiratory Rate 20 Blood Pressure [Right Arm] 111/68 Blood Pressure [Left Arm] 103/50 Blood Pressure 116/60 O2 Sat by Pulse Oximetry 96 Intake and Output: Intake & Output 01/07/23 01/08/23 01/09/23 01/11/23 23:59 23:59 23:59 00:59 Intake Total 44615 / 82679 4313 / 4313 38076 / 54142 849 / 849 Output Total 5210 / 5210 410 / 410 100 / 100 35 / 35 Balance 4926 / 4926 3903 / 3903 59827 / 51651 814 / 814 Physical Exam Oriented: Normal Respiratory: Normal Cardiovascular: Normal Auscultation: Bowel Sounds: Other (soft, flat abdomen with mild diffuse tenderness ) Mood Description: Calm and Appropriate Speech Pattern: Clear and Appropriate Laboratory and Diagnostics Result Diagrams: 01/10/23 04:41 01/10/23 04:41 Labs: 01/08/23 20:28 Blood Blood Culture - Preliminary 01/08/23 20:19 Blood Blood Culture - Preliminary Laboratory WBC 5.9 X10^3/uL (3.6-10.0) 01/10/23 04:41 RBC 3.89 X10^6/uL (4.7-6.0) L 01/10/23 04:41 Hgb 11.0 g/dL (13.5-18.0) L 01/10/23 04:41 Hct 32.3 % (42.0-54.0) L 01/10/23 04:41 MCV 83.1 fL (80.0-100.0) 01/10/23 04:41 MCH 28.4 pg (27.0-34.0) 01/10/23 04:41 MCHC 34.1 g/dL (33.0-35.0) 01/10/23 04:41 RDW 12.9 % (11.6-16.5) 01/10/23 04:41 Plt Count 321 X10^3/uL (150.0-450.0) 01/10/23 04:41 MPV 7.5 fL (7.4-11.0) 01/10/23 04:41 Neut % (Auto) 59.5 % (42.0-75.0) 01/10/23 04:41 Lymph % (Auto) 23.7 % (21.0-51.0) 01/10/23 04:41 [place] % (Auto) 8.6 % (0.0-13.0) 01/10/23 04:41 Eos % (Auto) 7.1 % (0.9-2.9) H 01/10/23 04:41 Baso % (Auto) 1.1 % (0.2-1.0) H 01/10/23 04:41 Neut # (Auto) 3.5 x10^3/uL (2.2-4.8) 01/10/23 04:41 Lymph # (Auto) 1.4 X10^3/uL (1.3-2.9) 01/10/23 04:41 [place] # (Auto) 0.5 x10^3/uL (0.3-0.8) 01/10/23 04:41 Eos # (Auto) 0.4 x10^3/uL (0.0-0.2) H 01/10/23 04:41 Baso # (Auto) 0.1 X10^3/uL (0.0-0.1) 01/10/23 04:41 Absolute Nucleated RBC 0.0 /100WBC 01/10/23 04:41 Sodium 134 mmol/L (136-145) L 01/10/23 04:41 Corrected Sodium 134 mmol/L (136-145) L 01/10/23 04:41 Potassium 3.7 mmol/L (3.5-5.1) 01/10/23 04:41 Chloride 99 mmol/L (98-107) 01/10/23 04:41 Carbon Dioxide 28.8 mmol/L (21-32) 01/10/23 04:41 BUN 6 mg/dL (7-18) L 01/10/23 04:41 Creatinine 0.76 mg/dL (0.70-1.30) 01/10/23 04:41 Est GFR (MDRD) Af Amer > 60 (>60) 01/10/23 04:41 Est GFR (MDRD) Non-Af > 60 (>60) 01/10/23 04:41 Glucose 112 mg/dL (65-99) H 01/10/23 04:41 Calcium 8.3 mg/dL (8.5-10.1) L 01/10/23 04:41 Corrected Calcium 9.7 mg/dL (8.5-10.1) 01/10/23 04:41 Magnesium 2.0 mg/dL (2.0-2.9) 01/07/23 05:12 Total Bilirubin 1.00 mg/dL (0.2-1.0) 01/10/23 04:41 AST 50 Units/L (15-37) H 01/10/23 04:41 ALT 74 Units/L (12-78) 01/10/23 04:41 Alkaline Phosphatase 270 Units/L (46-116) H 01/10/23 04:41 Total Protein 6.7 g/dL (6.4-8.2) 01/10/23 04:41 Albumin 2.2 g/dL (3.4-5.0) L 01/10/23 04:41 Globulin 4.5 g/dL (2.5-4.5) 01/10/23 04:41 Albumin/Globulin Ratio 0.5 Ratio (1.1-2.1) L 01/10/23 04:41 Prealbumin 8.4 mg/dL (18-35.7) L 01/07/23 05:12 Specimen Type Clean catch urine 01/05/23 21:08 Urine Color Sophie (YELLOW) 01/05/23 21:08 Urine Appearance Mucoid (CLEAR) 01/05/23 21:08 Urine pH 6.0 (5.0 - 8.0) 01/05/23 21:08 Ur Specific [place] 1.025 (1.000-1.030) 01/05/23 21:08 Urine Protein 2+ (NEGATIVE) 01/05/23 21:08 Urine Glucose (UA) Negative (NEGATIVE) 01/05/23 21:08 Urine Ketones 1+ (NEGATIVE) 01/05/23 21:08 Urine Blood Negative (NEGATIVE) 01/05/23 21:08 Urine Nitrite Negative (NEGATIVE) 01/05/23 21:08 Urine Bilirubin 1+ (NEGATIVE) 01/05/23 21:08 Urine Urobilinogen 1+ (NORMAL) 01/05/23 21:08 Ur Leukocyte Esterase Negative (NEGATIVE) 01/05/23 21:08 Urine RBC 0-2 /HPF (0-3) 01/05/23 21:08 Urine WBC None seen /HPF (0-5) 01/05/23 21:08 Ur Squamous Epith Cells Rare /HPF (NEGATIVE) 01/05/23 21:08 Urine Bacteria Trace /HPF (NEGATIVE) 01/05/23 21:08 Granular Casts Few /LPF (NEGATIVE) 01/05/23 21:08 Urine Mucus Numerous /HPF (NEGATIVE) 01/05/23 21:08 Ur Culture Indicated? No/not indicated 01/05/23 21:08 Tissue Pathology See comment. 01/04/23 09:39 Plan (1) Bile leak, postoperative: Status: Acute
[2023-01-10] MEDS: ZOFRAN INJ 4 MG VIAL IVP PRN (13:35)
[2023-01-10] MEDS: MORPHINE SULFATE INJ 4 MG IVP PRN ×2 (16:15→22:17)
[2023-01-10] MEDS: ATIVAN TAB 1 MG PO PRN (21:02)
[2023-01-11] MEDS: MORPHINE SULFATE INJ 4 MG IVP PRN (04:22)
[2023-01-11] MEDS: TPN ELECTROLYTES IV SCH ×16 (04:30→19:30)
[2023-01-11] MEDS: CLINIMIX IV SCH ×16 (04:30→19:30)
[2023-01-11] MEDS: [UNRECOGNIZED DRUG - OTHER] IV SCH ×16 (04:30→19:30)
[2023-01-11 05:37] LABS: BASOPHILS % (AUTO) 0.7 % (0.2-1.0); EOSINOPHILS # (AUTO) 0.3 x10^3/uL (0.0-0.2); EOSINOPHILS % (AUTO) 6.2 % (0.9-2.9); HEMATOCRIT 28.8 % (42.0-54.0); HEMOGLOBIN 9.8 g/dL (13.5-18.0); LYMPHOCYTES # (AUTO) 1.2 X10^3/uL (1.3-2.9); LYMPHOCYTES % (AUTO) 22.5 % (21.0-51.0); MEAN CORPUSCULAR HEMOGLOBIN 28.5 pg (27.0-34.0); MEAN CORPUSCULAR HGB CONC 34.1 g/dL (33.0-35.0); MEAN CORPUSCULAR VOLUME 83.6 fL (80.0-100.0); MEAN PLATELET VOLUME 7.5 fL (7.4-11.0); MONOCYTES # (AUTO) 0.7 x10^3/uL (0.3-0.8); MONOCYTES % (AUTO) 12.1 % (0.0-13.0); NEUTROPHILS # (AUTO) 3.2 x10^3/uL (2.2-4.8); NEUTROPHILS % (AUTO) 58.5 % (42.0-75.0); RED BLOOD COUNT 3.44 X10^6/uL (4.7-6.0); RED CELL DISTRIBUTION WIDTH 13.4 % (11.6-16.5); WHITE BLOOD COUNT 5.5 X10^3/uL (3.6-10.0)
[2023-01-11 05:47] LABS: ALANINE AMINOTRANSFERASE 64 Units/L (12-78); ALBUMIN 2.2 g/dL (3.4-5.0); ALKALINE PHOSPHATASE 221 Units/L (46-116); ASPARTATE AMINO TRANSFERASE 38 Units/L (15-37); BLOOD UREA NITROGEN 6 mg/dL (7-18); CALCIUM 8.1 mg/dL (8.5-10.1); CARBON DIOXIDE 30.4 mmol/L (21-32); CHLORIDE 100 mmol/L (98-107); COR CA(FOR HYPOALB) 9.5 mg/dL (8.5-10.1); CREATININE 0.65 mg/dL (0.70-1.30); SODIUM 134 mmol/L (136-145); TOTAL PROTEIN 5.9 g/dL (6.4-8.2); eGFR NON BLACK RACES > 60 (>60)
[2023-01-11] MEDS: CYTOTEC PO SCH ×3 (05:56→21:47)
[2023-01-11] MEDS: D5 1/2 NS 1,000 ML 1,000 ML IV SCH ×4 (05:59→21:48)
[2023-01-11] MEDS ORDERED: TOPROL XL PO ONE (08:10)
[2023-01-11] MEDS: LEVAQUIN PREMIX IV 750 MG 750 MG/150 ML BAG IV SCH (08:19)
[2023-01-11] MEDS: PROTONIX INJ 40 MG VIAL IVP SCH ×2 (08:19→21:47)
[2023-01-11] MEDS: TOPROL XL PO SCH (08:19)
[2023-01-11] MEDS ORDERED: NORCO 5/325 MG TAB PO PRN (08:19)
[2023-01-11] MEDS: ALBUMIN HUMAN 25%- 100 ML 100 ML IV SCH (08:20)
[2023-01-11] MEDS: ZOFRAN INJ 4 MG VIAL IVP PRN (08:29)
[2023-01-11] MEDS: LOVENOX INJ 40 MG SYR SC SCH (10:03)
[2023-01-11] MEDS ORDERED: DRUG FILTER EXTENSION SET ONE (19:29)
[2023-01-11] MEDS: ATIVAN TAB 1 MG PO PRN (21:53)
[2023-01-12] MEDS: TPN ELECTROLYTES IV SCH ×8 (00:56→12:19)
[2023-01-12] MEDS: [UNRECOGNIZED DRUG - OTHER] IV SCH ×8 (00:56→12:19)
[2023-01-12] MEDS: CLINIMIX IV SCH ×8 (00:56→12:19)
[2023-01-12] MEDS: D5 1/2 NS 1,000 ML 1,000 ML IV SCH ×5 (04:25→20:38)
[2023-01-12 06:18] LABS: BASOPHILS % (AUTO) 0.7 % (0.2-1.0); EOSINOPHILS # (AUTO) 0.3 x10^3/uL (0.0-0.2); EOSINOPHILS % (AUTO) 5.9 % (0.9-2.9); HEMATOCRIT 28.7 % (42.0-54.0); HEMOGLOBIN 9.7 g/dL (13.5-18.0); LYMPHOCYTES # (AUTO) 1.3 X10^3/uL (1.3-2.9); LYMPHOCYTES % (AUTO) 22.7 % (21.0-51.0); MEAN CORPUSCULAR HEMOGLOBIN 28.2 pg (27.0-34.0); MEAN CORPUSCULAR VOLUME 83.1 fL (80.0-100.0); MEAN PLATELET VOLUME 7.4 fL (7.4-11.0); MONOCYTES # (AUTO) 0.7 x10^3/uL (0.3-0.8); NEUTROPHILS # (AUTO) 3.2 x10^3/uL (2.2-4.8); NEUTROPHILS % (AUTO) 57.7 % (42.0-75.0); RED BLOOD COUNT 3.45 X10^6/uL (4.7-6.0); RED CELL DISTRIBUTION WIDTH 13.4 % (11.6-16.5); WHITE BLOOD COUNT 5.6 X10^3/uL (3.6-10.0)
[2023-01-12] MEDS: CYTOTEC PO SCH ×3 (06:31→21:16)
[2023-01-12 06:35] LABS: ALANINE AMINOTRANSFERASE 75 Units/L (12-78); ALBUMIN 2.4 g/dL (3.4-5.0); ALKALINE PHOSPHATASE 203 Units/L (46-116); ASPARTATE AMINO TRANSFERASE 44 Units/L (15-37); BLOOD UREA NITROGEN 6 mg/dL (7-18); CALCIUM 8.4 mg/dL (8.5-10.1); CARBON DIOXIDE 26.9 mmol/L (21-32); CHLORIDE 102 mmol/L (98-107); COR CA(FOR HYPOALB) 9.7 mg/dL (8.5-10.1); COR NA(FOR HYPERGLY) 137 mmol/L (136-145); CREATININE 0.63 mg/dL (0.70-1.30); SODIUM 137 mmol/L (136-145); TOTAL PROTEIN 6.1 g/dL (6.4-8.2); eGFR NON BLACK RACES > 60 (>60)
[2023-01-12] MEDS ORDERED: TOPROL XL PO ONE (08:02)
[2023-01-12] MEDS: TOPROL XL PO SCH ×2 (09:18→09:25)
[2023-01-12] MEDS: LEVAQUIN PREMIX IV 750 MG 750 MG/150 ML BAG IV SCH (09:19)
[2023-01-12] MEDS: PROTONIX INJ 40 MG VIAL IVP SCH ×2 (09:19→20:39)
[2023-01-12] MEDS: LOVENOX INJ 40 MG SYR SC SCH (09:20)
[2023-01-12] MEDS: ALBUMIN HUMAN 25%- 100 ML 100 ML IV SCH (09:20)
--- NOTE | 2023-01-12 11:20 | DR.PROGNOT ---
HOSPITAL PROGRESS NOTE Progress Note for Day of: Progress Note Date: 01/12/23 Chief Complaint Chief Complaint: post op day 4 laparoscopy and drainage of bile collection . feeling better today ,moderate Rt side abdominal pain .. still having poor appetite less drainage in MANUEL , light color Bilirubin normal . slight elevated LFT .Alk [place] 220 low grade fever . Past Medical Family Social History Past Med/Fam/Surg Hx: No changes since H&P Allergies: Allergies ampicillin Allergy (Unknown, Verified 01/04/23 08:42) childhood allergy Reason: Drug allergy iodine Allergy (Unknown, Verified 01/04/23 08:42) RASH Comments: Pt reports allergy to Iodine and shrimp Penicillins Allergy (Unknown, Verified 01/04/23 08:42) shrimp Allergy (Verified 01/04/23 11:39) PT STATES IT MAKES HIS THROAT ITCH. DISCUSSED WITH ELE ORDONEZ,PHARMACIST, AND WAS OK'D PER ELE. Review Of Systems ROS: No change since H&P Vital Signs Vital Signs: Temperature 99.1 F Pulse Rate [Left Brachial] 95 Pulse Rate 100 Respiratory Rate 20 Blood Pressure [Right Arm] 118/63 Blood Pressure [Left Arm] 118/58 Blood Pressure 116/60 O2 Sat by Pulse Oximetry 96 Physical Exam Oriented: Normal Respiratory: Normal Cardiovascular: Normal GI:Auscultation: Other (soft, flat abdomen with mild diffuse tenderness ) GI:Palpation: Other (soft, flat mith mild Rt side tenderness .BS+) Mood Description: Calm and Appropriate Speech Pattern: Clear and Appropriate Laboratory and Diagnostics Result Diagrams: 01/12/23 05:45 01/12/23 05:45 Labs: 01/08/23 20:28 Blood Blood Culture - Preliminary 01/08/23 20:19 Blood Blood Culture - Preliminary Laboratory WBC 5.6 X10^3/uL (3.6-10.0) 01/12/23 05:45 RBC 3.45 X10^6/uL (4.7-6.0) L 01/12/23 05:45 Hgb 9.7 g/dL (13.5-18.0) L 01/12/23 05:45 Hct 28.7 % (42.0-54.0) L 01/12/23 05:45 MCV 83.1 fL (80.0-100.0) 01/12/23 05:45 MCH 28.2 pg (27.0-34.0) 01/12/23 05:45 MCHC 34.0 g/dL (33.0-35.0) 01/12/23 05:45 RDW 13.4 % (11.6-16.5) 01/12/23 05:45 Plt Count 298 X10^3/uL (150.0-450.0) 01/12/23 05:45 MPV 7.4 fL (7.4-11.0) 01/12/23 05:45 Neut % (Auto) 57.7 % (42.0-75.0) 01/12/23 05:45 Lymph % (Auto) 22.7 % (21.0-51.0) 01/12/23 05:45 [place] % (Auto) 13.0 % (0.0-13.0) 01/12/23 05:45 Eos % (Auto) 5.9 % (0.9-2.9) H 01/12/23 05:45 Baso % (Auto) 0.7 % (0.2-1.0) 01/12/23 05:45 Neut # (Auto) 3.2 x10^3/uL (2.2-4.8) 01/12/23 05:45 Lymph # (Auto) 1.3 X10^3/uL (1.3-2.9) 01/12/23 05:45 [place] # (Auto) 0.7 x10^3/uL (0.3-0.8) 01/12/23 05:45 Eos # (Auto) 0.3 x10^3/uL (0.0-0.2) H 01/12/23 05:45 Baso # (Auto) 0.0 X10^3/uL (0.0-0.1) 01/12/23 05:45 Absolute Nucleated RBC 0.0 /100WBC 01/12/23 05:45 Sodium 137 mmol/L (136-145) 01/12/23 05:45 Corrected Sodium 137 mmol/L (136-145) 01/12/23 05:45 Potassium 3.6 mmol/L (3.5-5.1) 01/12/23 05:45 Chloride 102 mmol/L (98-107) 01/12/23 05:45 Carbon Dioxide 26.9 mmol/L (21-32) 01/12/23 05:45 BUN 6 mg/dL (7-18) L 01/12/23 05:45 Creatinine 0.63 mg/dL (0.70-1.30) L 01/12/23 05:45 Est GFR (MDRD) Af Amer > 60 (>60) 01/12/23 05:45 Est GFR (MDRD) Non-Af > 60 (>60) 01/12/23 05:45 Glucose 112 mg/dL (65-99) H 01/12/23 05:45 Calcium 8.4 mg/dL (8.5-10.1) L 01/12/23 05:45 Corrected Calcium 9.7 mg/dL (8.5-10.1) 01/12/23 05:45 Magnesium 2.0 mg/dL (2.0-2.9) 01/07/23 05:12 Total Bilirubin 0.70 mg/dL (0.2-1.0) 01/12/23 05:45 AST 44 Units/L (15-37) H 01/12/23 05:45 ALT 75 Units/L (12-78) 01/12/23 05:45 Alkaline Phosphatase 203 Units/L (46-116) H 01/12/23 05:45 Total Protein 6.1 g/dL (6.4-8.2) L 01/12/23 05:45 Albumin 2.4 g/dL (3.4-5.0) L 01/12/23 05:45 Globulin 3.7 g/dL (2.5-4.5) 01/12/23 05:45 Albumin/Globulin Ratio 0.6 Ratio (1.1-2.1) L 01/12/23 05:45 Prealbumin 8.4 mg/dL (18-35.7) L 01/07/23 05:12 Specimen Type Clean catch urine 01/05/23 21:08 Urine Color Sophie (YELLOW) 01/05/23 21:08 Urine Appearance Mucoid (CLEAR) 01/05/23 21:08 Urine pH 6.0 (5.0 - 8.0) 01/05/23 21:08 Ur Specific [place] 1.025 (1.000-1.030) 01/05/23 21:08 Urine Protein 2+ (NEGATIVE) 01/05/23 21:08 Urine Glucose (UA) Negative (NEGATIVE) 01/05/23 21:08 Urine Ketones 1+ (NEGATIVE) 01/05/23 21:08 Urine Blood Negative (NEGATIVE) 01/05/23 21:08 Urine Nitrite Negative (NEGATIVE) 01/05/23 21:08 Urine Bilirubin 1+ (NEGATIVE) 01/05/23 21:08 Urine Urobilinogen 1+ (NORMAL) 01/05/23 21:08 Ur Leukocyte Esterase Negative (NEGATIVE) 01/05/23 21:08 Urine RBC 0-2 /HPF (0-3) 01/05/23 21:08 Urine WBC None seen /HPF (0-5) 01/05/23 21:08 Ur Squamous Epith Cells Rare /HPF (NEGATIVE) 01/05/23 21:08 Urine Bacteria Trace /HPF (NEGATIVE) 01/05/23 21:08 Granular Casts Few /LPF (NEGATIVE) 01/05/23 21:08 Urine Mucus Numerous /HPF (NEGATIVE) 01/05/23 21:08 Ur Culture Indicated? No/not indicated 01/05/23 21:08 Tissue Pathology See comment. 01/04/23 09:39 Assessment and Plan 1: post op drainage bile collection in the abdomen . on IV ABT , 2: poor oral intake . on peripheral TPN .Ensue supplement ,and Albumin . PT to ambulate . DVT prophylaxis . 3: tachycardia . on Toprol 50 daily
[2023-01-12] MEDS ORDERED: RESTORIL CAP 30 MG PO PRN (19:06)
[2023-01-12] MEDS ORDERED: RESTORIL CAP 15 MG PO PRN (19:56)
[2023-01-13] MEDS: [UNRECOGNIZED DRUG - OTHER] IV SCH ×4 (00:48)
[2023-01-13] MEDS: TPN ELECTROLYTES IV SCH ×4 (00:48)
[2023-01-13] MEDS: CLINIMIX IV SCH ×4 (00:48)
[2023-01-13] MEDS: D5 1/2 NS 1,000 ML 1,000 ML IV SCH (02:03)
[2023-01-13] MEDS: CYTOTEC PO SCH (05:21)
[2023-01-13 06:26] LABS: BASOPHILS # (AUTO) 0.1 X10^3/uL (0.0-0.1); BASOPHILS % (AUTO) 0.9 % (0.2-1.0); EOSINOPHILS # (AUTO) 0.3 x10^3/uL (0.0-0.2); EOSINOPHILS % (AUTO) 4.4 % (0.9-2.9); HEMATOCRIT 30.3 % (42.0-54.0); HEMOGLOBIN 10.1 g/dL (13.5-18.0); LYMPHOCYTES # (AUTO) 1.3 X10^3/uL (1.3-2.9); LYMPHOCYTES % (AUTO) 20.3 % (21.0-51.0); MEAN CORPUSCULAR HEMOGLOBIN 27.6 pg (27.0-34.0); MEAN CORPUSCULAR HGB CONC 33.5 g/dL (33.0-35.0); MEAN CORPUSCULAR VOLUME 82.5 fL (80.0-100.0); MEAN PLATELET VOLUME 7.4 fL (7.4-11.0); MONOCYTES # (AUTO) 0.7 x10^3/uL (0.3-0.8); NEUTROPHILS # (AUTO) 4.2 x10^3/uL (2.2-4.8); NEUTROPHILS % (AUTO) 63.4 % (42.0-75.0); RED BLOOD COUNT 3.67 X10^6/uL (4.7-6.0); RED CELL DISTRIBUTION WIDTH 13.2 % (11.6-16.5); WHITE BLOOD COUNT 6.6 X10^3/uL (3.6-10.0)
[2023-01-13 06:39] LABS: ALANINE AMINOTRANSFERASE 95 Units/L (12-78); ALBUMIN 2.7 g/dL (3.4-5.0); ALKALINE PHOSPHATASE 196 Units/L (46-116); ASPARTATE AMINO TRANSFERASE 55 Units/L (15-37); BLOOD UREA NITROGEN 8 mg/dL (7-18); CALCIUM 8.4 mg/dL (8.5-10.1); CARBON DIOXIDE 25.8 mmol/L (21-32); CHLORIDE 103 mmol/L (98-107); COR CA(FOR HYPOALB) 9.4 mg/dL (8.5-10.1); CREATININE 0.63 mg/dL (0.70-1.30); SODIUM 138 mmol/L (136-145); TOTAL PROTEIN 6.6 g/dL (6.4-8.2); eGFR NON BLACK RACES > 60 (>60)
[2023-01-13 07:37] VITALS: BP 121/62
[2023-01-13] MEDS ORDERED: TOPROL XL PO ONE (07:46)
[2023-01-13] MEDS: TOPROL XL PO SCH (08:19)
[2023-01-13] MEDS: ALBUMIN HUMAN 25%- 100 ML 100 ML IV SCH (08:20)
[2023-01-13] MEDS: LOVENOX INJ 40 MG SYR SC SCH (08:52)
[2023-01-13] MEDS: PROTONIX INJ 40 MG VIAL IVP SCH (08:52)
[2023-01-13] MEDS: LEVAQUIN PREMIX IV 750 MG 750 MG/150 ML BAG IV SCH (08:53)
== END 2023-01-13 11:37 | disposition home health service (06) | DRG 337 ==
LOC: MED/SURG 07:47 → SURG1 07:47 → MED/SURG 10:38
PROVIDERS: ADMIT Surgery; ATTEND Surgery
PROC: DIAGLAP (2023-01-07 12:15)
DX: K83.8 Other specified diseases of biliary tract; R63.0 Anorexia; F41.8 Other specified anxiety disorders; K29.00 Acute gastritis without bleeding; R11.0 Nausea; E80.6 Other disorders of bilirubin metabolism; K76.89 Other specified diseases of liver; K91.89 Other postprocedural complications and disorders of digestive system; R10.84 Generalized abdominal pain; E88.09 Other disorders of plasma-protein metabolism, not elsewhere classified; K29.90 Gastroduodenitis, unspecified, without bleeding; R00.0 Tachycardia, unspecified

== ENCOUNTER 2023-02-04 11:26 | Observation (INO) ==
[2023-02-04] MEDS ORDERED: MORPHINE SULFATE INJ 4 MG IVP PRN (14:53)
[2023-02-04] MEDS ORDERED: ZOFRAN INJ 4 MG VIAL IVP PRN (14:53)
[2023-02-04 15:20] LABS: BASOPHILS # (AUTO) 0.1 X10^3/uL (0.0-0.1); BASOPHILS % (AUTO) 1.1 % (0.2-1.0); EOSINOPHILS # (AUTO) 0.3 x10^3/uL (0.0-0.2); EOSINOPHILS % (AUTO) 4.3 % (0.9-2.9); HEMATOCRIT 35.6 % (42.0-54.0); HEMOGLOBIN 12.1 g/dL (13.5-18.0); LYMPHOCYTES # (AUTO) 1.7 X10^3/uL (1.3-2.9); MEAN CORPUSCULAR HEMOGLOBIN 27.2 pg (27.0-34.0); MEAN CORPUSCULAR HGB CONC 34.1 g/dL (33.0-35.0); MEAN CORPUSCULAR VOLUME 79.8 fL (80.0-100.0); MEAN PLATELET VOLUME 7.7 fL (7.4-11.0); MONOCYTES # (AUTO) 0.6 x10^3/uL (0.3-0.8); MONOCYTES % (AUTO) 9.2 % (0.0-13.0); NEUTROPHILS # (AUTO) 3.8 x10^3/uL (2.2-4.8); NEUTROPHILS % (AUTO) 58.4 % (42.0-75.0); RED BLOOD COUNT 4.46 X10^6/uL (4.7-6.0); RED CELL DISTRIBUTION WIDTH 14.6 % (11.6-16.5); WHITE BLOOD COUNT 6.4 X10^3/uL (3.6-10.0)
[2023-02-04 15:34] LABS: ALANINE AMINOTRANSFERASE 31 Units/L (12-78); ALBUMIN 3.6 g/dL (3.4-5.0); ALKALINE PHOSPHATASE 97 Units/L (46-116); AMYLASE 43 Units/L (25-115); ASPARTATE AMINO TRANSFERASE 15 Units/L (15-37); BLOOD UREA NITROGEN 12 mg/dL (7-18); CARBON DIOXIDE 28.5 mmol/L (21-32); CHLORIDE 104 mmol/L (98-107); CREATININE 0.84 mg/dL (0.70-1.30); LIPASE 65 Units/L (73-393); SODIUM 141 mmol/L (136-145); TOTAL PROTEIN 7.7 g/dL (6.4-8.2); eGFR NON BLACK RACES > 60 (>60)
[2023-02-04] MEDS: D5 1/2 NS 1,000 ML 1,000 ML IV SCH ×2 (16:18→23:24)
[2023-02-04 18:42] LABS: T4 (THYROXINE) 7.2 ug/dL (4.7-13.3); TSH (3RD GENERATION) 0.662 uIU/mL (0.358-3.74)
[2023-02-04] MEDS ORDERED: TOPROL XL PO SCH (19:00)
[2023-02-04] MEDS: LOVENOX INJ 40 MG SYR SC SCH (20:43)
[2023-02-05] MEDS: D5 1/2 NS 1,000 ML 1,000 ML IV SCH (06:03)
[2023-02-05] MEDS: LOVENOX INJ 40 MG SYR SC SCH (08:09)
[2023-02-05] MEDS ORDERED: LR 1,000 ML IV 1,000 ML IV ONE (09:23)
--- NOTE | 2023-02-05 09:47 | RAD ---
HISTORYNausea, abdominal painSTUDYAcute abdominal seriesCOMPARISONNoneFINDINGSHeart size is normal. [place] are normal. Lungs are hypoinflated but free of acute infiltrates. Abdominal gas pattern is nonspecific and nonobstructive. No abnormal masses or abnormal calcifications are identified. No pneumoperitoneum is present. Regional skeleton is intact. Patient appears to be status post cholecystectomy.IMPRESSIONUnremarkable acute abdominal seriesElectronically signed by: MAGDI NEGRETE (Feb 05, 2023 09:46:19)
--- NOTE | 2023-02-05 10:45 | DR.PROGNOT ---
HOSPITAL PROGRESS NOTE Progress Note for Day of: Progress Note Date: 02/05/23 Chief Complaint Chief Complaint: c/o pain of the mid abdomen and Lt side .. having loose BM . C Dif was negative . T4 normal . BP was low down to 70 . had to give him more fluid . Past Medical Family Social History Allergies: Allergies ampicillin Allergy (Unknown, Verified 01/04/23 08:42) childhood allergy Reason: Drug allergy iodine Allergy (Unknown, Verified 01/04/23 08:42) RASH Comments: Pt reports allergy to Iodine and shrimp Penicillins Allergy (Unknown, Verified 01/04/23 08:42) shrimp Allergy (Verified 01/04/23 11:39) PT STATES IT MAKES HIS THROAT ITCH. DISCUSSED WITH ELE ORDONEZ,PHARMACIST, AND WAS OK'D PER ELE. Review Of Systems ROS: No change since H&P Vital Signs Vital Signs: Temperature 98.4 F Pulse Rate [Right Radial] 54 Respiratory Rate 20 Blood Pressure [Right Arm] 111/63 Blood Pressure [Left Arm] 92/53 Blood Pressure 113/74 O2 Sat by Pulse Oximetry 99 Physical Exam Oriented: Normal Respiratory: Normal Cardiovascular: Normal GI:Auscultation: Normal GI: Tenderness: Diffuse (no rebound , no rigidity ), LUQ, LLQ and Periumbilical Speech Pattern: Clear and Appropriate Laboratory and Diagnostics Result Diagrams: 02/04/23 15:08 02/04/23 15:08 Labs: Laboratory WBC 6.4 X10^3/uL (3.6-10.0) 02/04/23 15:08 RBC 4.46 X10^6/uL (4.7-6.0) L 02/04/23 15:08 Hgb 12.1 g/dL (13.5-18.0) L 02/04/23 15:08 Hct 35.6 % (42.0-54.0) L 02/04/23 15:08 MCV 79.8 fL (80.0-100.0) L 02/04/23 15:08 MCH 27.2 pg (27.0-34.0) 02/04/23 15:08 MCHC 34.1 g/dL (33.0-35.0) 02/04/23 15:08 RDW 14.6 % (11.6-16.5) 02/04/23 15:08 Plt Count 246 X10^3/uL (150.0-450.0) 02/04/23 15:08 MPV 7.7 fL (7.4-11.0) 02/04/23 15:08 Neut % (Auto) 58.4 % (42.0-75.0) 02/04/23 15:08 Lymph % (Auto) 27.0 % (21.0-51.0) 02/04/23 15:08 [place] % (Auto) 9.2 % (0.0-13.0) 02/04/23 15:08 Eos % (Auto) 4.3 % (0.9-2.9) H 02/04/23 15:08 Baso % (Auto) 1.1 % (0.2-1.0) H 02/04/23 15:08 Neut # (Auto) 3.8 x10^3/uL (2.2-4.8) 02/04/23 15:08 Lymph # (Auto) 1.7 X10^3/uL (1.3-2.9) 02/04/23 15:08 [place] # (Auto) 0.6 x10^3/uL (0.3-0.8) 02/04/23 15:08 Eos # (Auto) 0.3 x10^3/uL (0.0-0.2) H 02/04/23 15:08 Baso # (Auto) 0.1 X10^3/uL (0.0-0.1) 02/04/23 15:08 Absolute Nucleated RBC 0.1 /100WBC 02/04/23 15:08 Sodium 141 mmol/L (136-145) 02/04/23 15:08 Corrected Sodium TNP 02/04/23 15:08 Potassium 4.0 mmol/L (3.5-5.1) 02/04/23 15:08 Chloride 104 mmol/L (98-107) 02/04/23 15:08 Carbon Dioxide 28.5 mmol/L (21-32) 02/04/23 15:08 BUN 12 mg/dL (7-18) 02/04/23 15:08 Creatinine 0.84 mg/dL (0.70-1.30) 02/04/23 15:08 Est GFR (MDRD) Af Amer > 60 (>60) 02/04/23 15:08 Est GFR (MDRD) Non-Af > 60 (>60) 02/04/23 15:08 Glucose 89 mg/dL (65-99) 02/04/23 15:08 Calcium 9.0 mg/dL (8.5-10.1) 02/04/23 15:08 Corrected Calcium TNP 02/04/23 15:08 Total Bilirubin 0.40 mg/dL (0.2-1.0) 02/04/23 15:08 AST 15 Units/L (15-37) 02/04/23 15:08 ALT 31 Units/L (12-78) 02/04/23 15:08 Alkaline Phosphatase 97 Units/L (46-116) 02/04/23 15:08 Total Protein 7.7 g/dL (6.4-8.2) 02/04/23 15:08 Albumin 3.6 g/dL (3.4-5.0) 02/04/23 15:08 Globulin 4.1 g/dL (2.5-4.5) 02/04/23 15:08 Albumin/Globulin Ratio 0.9 Ratio (1.1-2.1) L 02/04/23 15:08 Amylase 43 Units/L (25-115) 02/04/23 15:08 Lipase 65 Units/L (73-393) L 02/04/23 15:08 Thyroxine (T4) 7.2 ug/dL (4.7-13.3) 02/04/23 18:10 TSH 3rd Generation 0.662 uIU/mL (0.358-3.74) 02/04/23 18:10 Stl C. diff Tox B Gene Negative (NEGATIVE) 02/04/23 20:46 Stl C. diff [id number] Presumptive negative (NEGATIVE) 02/04/23 20:46 Assessment and Plan 1: abdominal pain . awaiting abdominal CT with contrast . if all negative will do colonoscopy . 2: recent bile collection required drainage 3: fatigue and depression . increase IVF , hold Metoprolol .
[2023-02-05 11:01] LABS: BILIRUBIN,URINE NEGATIVE (NEGATIVE); BLOOD/HEMOGLOBIN,URINE NEGATIVE (NEGATIVE); GLUCOSE, URINE NEGATIVE (NEGATIVE); KETONES,URINE NEGATIVE (NEGATIVE); LEUKOCYTE ESTERASE ,URINE NEGATIVE (NEGATIVE); NITRITES,URINE NEGATIVE (NEGATIVE); PROTEIN,URINE NEGATIVE (NEGATIVE); UROBILINOGEN,URINE NORMAL (NORMAL)
[2023-02-05 11:04] LABS: APPEARANCE,URINE CLEAR (CLEAR); COLOR,URINE STRAW (YELLOW)
[2023-02-05] MEDS: LR 1,000 ML IV 1,000 ML IV SCH ×3 (11:04→17:40)
[2023-02-05] MEDS ORDERED: PREDNISONE TAB 10 MG PO SCH (13:00)
[2023-02-05 17:15] VITALS: BMI 31.4
[2023-02-05] MEDS ORDERED: PREDNISONE TAB 10 MG PO ONE (19:00)
[2023-02-06] MEDS ORDERED: PREDNISONE TAB 10 MG PO ONE ×2 (01:00→07:00)
[2023-02-06] MEDS: LR 1,000 ML IV 1,000 ML IV SCH ×3 (01:03→11:01)
[2023-02-06 04:04] VITALS: BP 111/59
[2023-02-06] MEDS ORDERED: BENADRYL CAP 50 MG PO SCH (07:00)
[2023-02-06] MEDS: LOVENOX INJ 40 MG SYR SC SCH (08:13)
--- NOTE | 2023-02-06 08:35 | CT ---
HISTORYABD PAINSTUDYABDOMEN/PELVIS WITH CONCOMPARISONNone availableTECHNIQUEMultiple axial images of the abdomen and pelvis were obtained from the lung bases to the pubic symphysis after the administration of IV contrast. Dose reduction techniques including Automated Exposure Control (AEC) and adjustment of mA and kV were utilized.FINDINGS[Lung bases are clear. No focal hepatic lesion. Previous cholecystectomy. Moderate amount fluid is noted along the undersurface of the liver tracking inferiorly adjacent to the portal vein and IVC. The largest pocket of fluid is noted on the undersurface of the caudate lobe measuring approximately 7.3 x 2.5 cm on coronal image 28. Bile ducts are normal in caliber. The spleen, pancreas and adrenal glands are normal. Kidneys are normal. Upper GI tract demonstrates no evidence of mass or obstruction. Urinary bladder is normal. Prostate gland is normal. The rectum is normal. The colon and terminal ileum are normal. The appendix is not definitely seen. Abdominal aorta is normal in caliber. No enlarged abdominal or pelvic lymph node. There is a small amount pelvic free fluid noted. No acute osseous abnormality.IMPRESSIONLoculated fluid collection which surrounds the undersurface of the liver along the inferior margin of the caudate and right hepatc lobes tracks inferiorly adjacent to the IVC and portal vein, findings likely represents a postoperative seroma and/or infected fluid collection.Small amount of pelvic free fluid is likely dependent fluid from the above-described perihepatic fluid collection. A bile duct leak is not entirely excluded however typically presents fairly immediately after surgery.Previous cholecystectomy. No bile duct dilatation.Electronically signed by: CORA PRICE (Feb 06, 2023 08:34:11)
[2023-02-06] MEDS ORDERED: ZOLOFT PO SCH (10:00)
== END 2023-02-06 11:05 | disposition home or self-care (01) ==
LOC: MED/SURG
PROVIDERS: ADMIT Surgery; ATTEND Surgery
DX: R62.7 Adult failure to thrive; F50.89 Other specified eating disorder; R10.84 Generalized abdominal pain; R10.32 Left lower quadrant pain; Z79.899 Other long term (current) drug therapy; I95.89 Other hypotension; R53.1 Weakness